=== PATIENT | male | born 1950 | race Caucasian/White ===

== ENCOUNTER 2018-07-09 10:44 | Inpatient (IN) | payer MEDICARE, OTHER ==
[2018-07-09] MEDS ORDERED: NS 0.9% 1000 ML** 1,000 ML IV ONE ×3 (11:11→18:07)
--- NOTE | 2018-07-09 11:11 | ED ---
Substance Abuse/Use - HPI Summary HPI Summary: A 67 y/o M presents to ED with ETOH intoxication. He last drank this AM and drank "a lot." He drinks daily. Associated sx: n/v, CARMONA, fever in ED: 101.2 F. Pt also has an erythematous area with swelling to his L elbow onset yesterday. PMHx: COPD, DM. Denies HTN. - History Of Current Complaint Stated Complaint: WANTS REHAB PER FRIEND Time Seen by Provider: 07/09/18 11:07 Hx Obtained From: Patient Ingestion History: Type/Name Of Drug - ETOH Overdose Characteristics: Oral Timing Of Abuse: Daily Severity Initially: Mild Severity Currently: Mild Associated Signs And Symptoms: Nausea, Vomiting, Other: - pos: CARMONA, L elbow erythema and swelling, fever - Allergies/Home Medications Allergies/Adverse Reactions: Allergies Allergy/AdvReac Type Severity Reaction Status Date / Time Penicillins Allergy Rash Verified 07/09/18 11:22 Home Medications: Home Medications Metoprolol Succinate XL TAB* [Toprol XL TAB*] 50 mg PO BID 07/09/18 [History Confirmed 07/09/18] PMH/Surg Hx/FS Hx/Imm Hx Previously Healthy: No Endocrine/Hematology History: Reports: Hx Diabetes Cardiovascular History: Denies: Hx Hypertension Respiratory History: Reports: Hx Chronic Obstructive Pulmonary Disease (COPD) - Social History Occupation: Unemployed Lives: Dormitory/Roommates Alcohol Use: Daily - heavy Review of Systems Positive: Fever - in ED: 101.2 F, Other - pos: ETOH intoxication Positive: Vomiting, Nausea Skin: Other - pos: erythema and swelling to L elbow Positive: Headache All Other Systems Reviewed And Are Negative: Yes Physical Exam - Summary Physical Exam Summary: VITAL SIGNS: Reviewed. GENERAL: Patient is a well-developed and nourished MALE who is lying comfortable in the stretcher. Patient is not in any acute respiratory distress. HEAD AND FACE: No signs of trauma. No ecchymosis, hematomas or skull depressions. No sinus tenderness. EYES: PERRLA, EOMI x 2, No injected conjunctiva, no nystagmus. EARS: Hearing grossly intact. Ear canals and tympanic membranes are within normal limits. MOUTH: Dry mouth NECK: Supple, trachea is midline, no adenopathy, no JVD, no carotid bruit, no c- spine tenderness, neck with full ROM. CHEST: Symmetric, no tenderness at palpation LUNGS: Diffuse wheezing. CVS: Regular rate and rhythm, S1 and S2 present, no murmurs or gallops appreciated. ABDOMEN: Soft, non-tender. No signs of distention. No rebound, no guarding, and no masses palpated. Bowel sounds are normal. EXTREMITIES: FROM in all major joints, no edema, no cyanosis or clubbing EXCEPT there is L elbow swelling with mild erythema. NEURO: Alert and oriented x 3. No acute neurological deficits. Speech is normal and follows commands. SKIN: Dry and warm Triage Information Reviewed: Yes Vital Signs Reviewed: Yes Diagnostics - Laboratory Result Diagrams: 07/09/18 11:27 07/09/18 17:15 Lab Statement: Any lab studies that have been ordered have been reviewed, and results considered in the medical decision making process. - Radiology CXR Radiology Interpretation Completed By: Radiologist Summary of Radiographic Findings: IMPRESSION: HYPERINFLATION, CONSISTENT WITH COPD. NO ACTIVE CARDIOPULMONARY DISEASE. ED provider has reviewed this report. - EKG 11:17 Cardiac Rate: Tachycardia - 129 bpm EKG Rhythm: Sinus Tachycardia EKG Comparison: Other - No prior EKG available. Summary of EKG Findings: No ST elevation. Re-Evaluation - Re-Evaluation 1 Re-Evaluation Time: 13:52 Change: Unchanged Comment: Performing bedside ultrasound. I&D at L elbow, there was a small amount of purulent discharge, mostly induration of the skin. Course/Dx - Course Assessment/Plan: This patient is a 67-year-old male who presents to the emergency room with a chief complaint of having an alcohol intoxication of requesting detox. The patient is an alcoholic and drinks every day. Physical exam reveals that the patient has productive wheezing and decreased breath sounds. The patient has history of COPD. The ED course the patient was given IV fluids, the banana bag, and DuoNeb and Solu-Medrol for COPD exacerbation. Blood test result shows a dialysis of 24.2, hemoglobin 16.9 and hematocrit was 51 and platelets Twenter 43. ABG shows a pH of 7.46, PCO2 of 32, PO2 is 70, O2 sat is 98.3. CMP shows a sodium 129, chloride 94, anion gap is 13, glucose of 219, lactic acid is 2.6, troponin 0.47, and CRP of 49.89. In the ED course the patient was given aspirin since the troponin is elevated, I also added Rocephin and azithromycin since I believe the patient has an early pneumonia as well as the COPD exacerbation. I discuss my physical exam, findings and test results with Dr. Patel from the hospitalist services and he agrees to admit patient to his services. Patient is hemodynamically stable alert and oriented x 3. - Diagnoses Provider Diagnoses: Elevated troponin, COPD exacerbation, Non-STEMI (non-ST elevated myocardial infarction) - Physician Notifications Discussed Care Of Patient With: Ingris Wei - hospitalist Time Discussed With Above Provider: 12:58 Instructed by Provider To: Admit As Inpatient - Critical Care Time Critical Care Time: 75-104 min Discharge - Sign-Out/Discharge Documenting (check all that apply): Patient Departure - ADMIT Patient Received Moderate/Deep Sedation with Procedure: No - Discharge Plan Condition: Stable Disposition: ADMITTED TO [facility] - Billing Disposition and Condition Condition: STABLE Disposition: Admitted to [facility] - Attestation Statements Document Initiated by Scribe: Yes Documenting Scribe: Dav Tran Provider For Whom Scribe is Documenting (Include Credential): Dr. Red Gustafson MD Scribe Attestation: I, Dav Tran, scribed for Dr. Red Gustafson MD on 07/09/18 at 1836. Scribe Documentation Reviewed: Yes Provider Attestation: The documentation as recorded by the Dav gilbert accurately reflects the service I personally performed and the decisions made by me, Dr. Red Gustafson MD Status of Scribe Document: Viewed Consult Consult: [id number]: Consult with kavita Ramesh Saw pt in ED, recommends ABX and admission to hospitalist.
[2018-07-09] MEDS ORDERED: Thiamine IV* 100 MG, Folic Acid IV* 1 MG, Multiple Vitamin IV ADULT* 10 ML in NS 0.9% 1... IV ONE (11:12)
[2018-07-09] MEDS ORDERED: methylPREDNISolone 125 MG* 2 ML VIAL IV ONE (11:13)
[2018-07-09] MEDS ORDERED: Albuterol/Ipratropium NEB.SOL* Albuterol 2.5 MG/Ipratropium 0.5 MG 3 ML INH ONE (11:13)
[2018-07-09 11:51] LABS: Hematocrit 51 % (42-52); Hemoglobin 16.9 g/dL (14.0-18.0); Mean Corpuscular HGB Conc 34 g/dL (31-36); Mean Corpuscular Hemoglobin 32 pg (27-31); Mean Corpuscular Volume 94 fL (80-94); Mean Platelet Volume 7.2 fL (7.4-10.4); Platelet Count 243 10^3/uL (150-450); Red Blood Count 5.38 10^6 /uL (4.18-5.48); Red Cell Distribution Width 16 % (10.5-15); White Blood Count 24.2 10^3/uL (3.5-10.8)
[2018-07-09 12:01] LABS: Activated Partial Thrombo Time 32.9 seconds (26.0-36.3); INR 1.17 (0.82-1.09)
[2018-07-09 12:15] LABS: ALT 29 U/L (7-52); AST 28 U/L (13-39); Albumin 4.2 g/dL (3.2-5.2); Alkaline Phosphatase 100 U/L (34-104); Anion Gap 13 mmol/L (2-11); BUN/Creatinine Ratio 7.7 (8-20); Blood Urea Nitrogen 6 mg/dL (6-24); C Reactive Protein 49.89 mg/L (<8.01); CO2 Carbon Dioxide 22 mmol/L (22-32); Calcium 8.9 mg/dL (8.6-10.3); Chloride 94 mmol/L (101-111); Creatine Kinase 118 U/L (10-223); EGFR African American 120.9 (>60); EGFR Non-African American 99.9 (>60); Glucose 219 mg/dL (70-100); Potassium 3.8 mmol/L (3.5-5.0); Sodium 129 mmol/L (135-145)
[2018-07-09 12:17] LABS: ABS Neutrophils 21.1 10^3/ul (1.5-7.7)
[2018-07-09 12:19] LABS: CKMB ng/mL 4.8 ng/mL (0.6-6.3)
[2018-07-09 12:20] LABS: Troponin I 0.47 ng/mL (<0.04)
[2018-07-09] MEDS ORDERED: Aspirin 81 mg CHEW TAB* 81 MG TAB.CHEW PO ONE (12:22)
[2018-07-09] MEDS ORDERED: cefTRIAXone(*) 1 GM in NS 0.9% 50 ML* 50 ML IVPB ONE (12:22)
[2018-07-09] MEDS ORDERED: Acetaminophen TAB* 325 MG PO ONE (12:37)
[2018-07-09] MEDS ORDERED: Azithromycin 500 mg/250 ml NS 500 MG/250 ML BAG IVPB ONE (12:58)
[2018-07-09 13:05] LABS: Albumin/Globulin Ratio 1.6 (1-3); Globulin 2.6 g/dL (2-4); Total Protein 6.8 g/dL (6.4-8.9)
[2018-07-09 13:36] LABS: Urine Appearance Clear; Urine Bacteria Absent (Absent); Urine Bilirubin Negative (Negative); Urine Blood 1+ (Negative); Urine Color Yellow; Urine Glucose 2+(150 mg/dL) (Negative); Urine Ketones Trace (Negative); Urine Nitrite Negative (Negative); Urine Protein Negative (Negative); Urine Red Blood Cell Trace(0-2/hpf) (Absent); Urine Specific Gravity 1.005 (1.010-1.030); Urine Squamous Epithelial Cell Present (Absent); Urine Urobilinogen Negative (Negative); Urine White Blood Cell Absent (Absent)
[2018-07-09] MEDS ORDERED: Al Hydrox/Mg Hydrox/Simet LIQ* 30 ML UDC PO PRN (13:50)
[2018-07-09] MEDS ORDERED: Lorazepam PYXIS KEY PRN ×2 (14:02→15:07)
[2018-07-09] MEDS ORDERED: KCL 20 MEQ/100 ML IVPREMIX* 20 MEQ/100 ML BAG IV ONE (14:25)
[2018-07-09] MEDS ORDERED: Albuterol/Ipratropium NEB.SOL* Albuterol 2.5 MG/Ipratropium 0.5 MG 3 ML INH PRN (14:33)
[2018-07-09] MEDS ORDERED: LORazepam INJ* 2 MG/ML 1 ML VIAL IV PUSH ONE (15:07)
[2018-07-09] MEDS: Ondansetron INJ* 2 MG/ML VIAL IV PRN ×2 (15:13→22:12)
[2018-07-09] MEDS: Nicotine PATCH 21 MG/24 HR* PATCH TRANSDERM SCH (15:44)
[2018-07-09] MEDS: Folic Acid TAB* 1 MG PO SCH (15:45)
[2018-07-09] MEDS: Gabapentin CAP(*) 300 MG PO SCH ×2 (15:45→20:26)
[2018-07-09] MEDS: Thiamine TAB* 100 MG TAB PO SCH (15:45)
[2018-07-09] MEDS: Enoxaparin(*) 40 MG/0.4 ML SYR SUBCUT SCH (15:47)
[2018-07-09] MEDS ORDERED: Vancomycin per Pharmacy* NOTE FOLLOW UP SCH (16:00)
[2018-07-09] MEDS ORDERED: Vancomycin(*) 2,000 MG in NS 0.9% 500 ML* 500 ML IVPB ONE (16:00)
[2018-07-09] MEDS ORDERED: Vancomycin(*) 1,500 MG in NS 0.9% 250 ML* 250 ML IVPB ONE (16:30)
[2018-07-09 17:41] LABS: Anion Gap 9 mmol/L (2-11); BUN/Creatinine Ratio 6.8 (8-20); Blood Urea Nitrogen 6 mg/dL (6-24); CO2 Carbon Dioxide 21 mmol/L (22-32); Calcium 7.9 mg/dL (8.6-10.3); Chloride 104 mmol/L (101-111); EGFR African American 105.2 (>60); EGFR Non-African American 86.9 (>60); Glucose 278 mg/dL (70-100); Potassium 4.9 mmol/L (3.5-5.0); Sodium 134 mmol/L (135-145)
[2018-07-09 17:48] LABS: Troponin I 0.38 ng/mL (<0.04)
[2018-07-09] MEDS: Multivitamins/Minerals TAB PO SCH (18:02)
[2018-07-09] MEDS: Morphine 4 MG/ML VIAL (1 ml) 4 MG/ML VIAL IV PRN (19:30)
[2018-07-09] MEDS: ceFAZolin 1 GM ADVAN(*) 1 GM in NS 0.9% 50 ML* 50 ML IVPB SCH (19:32)
--- NOTE | 2018-07-09 19:36 | HP ---
HISTORY AND PHYSICAL: DATE OF ADMISSION: HEALTHCARE PROXY: Jaime Cobb, friend, . CODE STATUS: Full. CHIEF COMPLAINT: "I want to quit drinking." HISTORY OF PRESENT ILLNESS: Mr. Russ is a 67-year-old man with alcohol use disorder, COPD with active tobacco use, and anxiety, who is presenting from home with request for help with alcohol cessation. He reports that he is a binge drinker and has been drinking alcohol on and off throughout his entire adult life. He reports that he went through breakup approximately 1 month ago and since then has been drinking 20 to 30 beers per day. He states that none of his friends drink and they are very supportive in tying to help him quit, and he has just been feeling worse from excessive alcohol use the last few days , so he decided to come to hospital for help with alcohol cessation. When asked specifically what feels worse to him, he reports that his left elbow has been aching. He denies fall, trauma, or recent wounds over skin on elbow. He also states he has been experiencing a cough for a few months. The cough is not productive nor progressive. He denied fevers, chills, night sweats, but does have a diagnosis of COPD and continues to smoke and does not use inhalers. He also reports recent nausea and nonbloody, nonbilious vomiting. Last episode of vomiting was before presenting to the hospital. He also denies chest pain, shortness of breath, abdominal pain, constipation, or diarrhea. In the emergency room, he was noted to be febrile and tachycardic with x-ray showing COPD without concern for infection. He was given ceftriaxone, azithromycin, 1 L of fluids, IV steroids, IV thiamine, and aspirin, and asked to be admitted to Medicine for concern for COPD exacerbation and pneumonia. PAST MEDICAL HISTORY: 1. Alcohol use disorder, multiple inpatient rehab stays. No history of alcohol withdrawal seizures or intubation. No history of liver disease. 2. DM2 not on medications 3. Anxiety. 4. COPD. HOME MEDICATIONS: Metoprolol succinate 50 mg twice a day. ALLERGIES: PENICILLIN caused rash. FAMILY HISTORY: Both parents from unknown cancers. SOCIAL HISTORY: Lives with his friend, Jaime and Jaime' Deborah. Retired from [employer]. Active tobacco use starting at age 20, occasionally up to 2 packs per day. Chronic alcohol abuse. Denies other drugs. PHYSICAL EXAMINATION GENERAL: Appears stated age, in no acute distress. Alert, friendly, conversant. VITAL SIGNS: Temperature 101.2, heart rate 117, blood pressure 131/79, respirations 21, oxygen saturation 95% on room air. HEENT: No evidence of trauma. Moist mucous membranes. NECK: Supple. No JVD. LUNGS: Mild diffuse expiratory wheeze. Good air movement. No crackles. HEART: Tachycardic, regular rhythm. No murmurs, gallops, or rubs. ABDOMEN: Soft, nontender, positive for distention. No organomegaly. No fluid wave. EXTREMITIES: Mild hand tremor. No asterixis. Left elbow with moderate ? effusion with overlying erythema circumferentially, possible abscess with purulence over olecranon. Lower extremities without edema, wwp. NEUROLOGIC: Cranial nerves II through XII intact. SKIN: No diaphoresis. Not jaundiced. DIAGNOSTIC STUDIES/LAB DATA: Labs reviewed and significant for leukocytosis to 24. Neutrophil percentage not reported. Hemoglobin 17, platelets 243. INR 1.17. pH 7.46, PCO2 32. Sodium 129, creatinine 0.78, lactic acid 2.6. Troponin 0.47. CRP 50. Chest x-ray with hyperinflation consistent with COPD. No active cardiopulmonary disease. EKG with sinus tachycardia, rate 130 with late transition for R-wave progression and possible inferior Qs in II, III, aVF, although poor baseline. ASSESSMENT AND PLAN: 67-year-old man with history of alcohol use disorder, active tobacco use complicated by chronic obstructive pulmonary disease, anxiety, who is presenting with desire to stop drinking and with subacute cough and left elbow pain. The patient found with tachycardia, fever, leukocytosis, and left elbow concerning for septic joint. 1. Cellulitis with concern for septic joint of left elbow. Ortho has been consulted, left elbow x-ray is ordered. Plan to obtain cultures and start the patient on vancomycin. Will give sepsis fluids, pain control with morphine as needed for [id number] pain and Tylenol for mild pain. May need joint washout from Orthopedic Surgery. 2. Alcohol withdrawal. WAM protocol initiated with standing gabapentin, which could also be used for alcohol use disorder on top of alcohol withdrawal treatment. Will also start on thiamine and folate with ondansetron as needed for nausea. Will start on multivitamin and replete electrolytes as needed. We will order ultrasound of liver and to look for ascites. 3. Chronic obstructive pulmonary disease with possible exacerbation. We will continue nebulizers as needed. The patient is not currently requiring oxygen therapy and he does not take a daily chronic obstructive pulmonary disease inhaler at home. 4. Active tobacco. We will order nicotine patch and discuss cessation techniques. 5. DVT prophylaxis. The patient is initiated on Lovenox subcu. 6. Code status. Full. TIME SPENT: Approximately 60 minutes was spent on admission of this patient, more than half of which was spent at bedside for the interview and exam. [id number]/[facility]PS #: [id number] DOROTHY
[2018-07-09] MEDS: Nicotine Patch Removal NOTE FOLLOW UP SCH (20:24)
--- NOTE | 2018-07-09 20:49 | CONS ---
CONSULTATION NOTE: DATE OF CONSULT: 07/09/18 REASON FOR CONSULT: Left elbow infection. HISTORY OF PRESENT ILLNESS: The patient is a 67-year-old man, right-hand dominant, retired, who is a n alcoholic, who presented to the emergency room intoxicated with a complaint of some left elbow pain and swelling. The patient was seen by the hospitalist service and there were plans for admission to the hospitalist service. Emergency room staff noted some erythema, pain and tenderness about the left elbow. They were concerned about infection. Dr. Gustafson thought that there might be some fluid about the olecranon bursa. Therefore, he placed a short stab incision through the skin, longitudinal about the olecrano n bursa. No clear fluid was released. The patient noted that there was some blood, but no pus. The patient describes fevers at home and an elevated temperature here in the emergency room. The patient states that he fell yesterday while drinking and thinks that he hit his left elbow then. The patient acknowledges that he drinks "a lot." He drinks daily according to the emergency room sta ff note. PAST MEDICAL HISTORY: Diabetes, alcoholism, chronic obstructive pulmonary disease. HOME MEDICATIONS: Metoprolol. ALLERGIES: PENICILLIN (rash). FAMILY HISTORY: Noncontributory. SOCIAL HISTORY: The patient is a daily alcohol drinker. Lives with 2 roommates, a couple. Unemployed or retired. REVIEW OF SYSTEMS: The patient has had fevers at home. The patient described occasional headaches. He described some shortness of breath and he describes having received a breathing treatment in the emergency room for that. No chest pain or heart palpitations. The patient denied to me nausea or vo miting, but acknowledged recent nausea and vomiting to the emergency room staff presumably secondary to his drinking. No numbness or tingling. The patient does have some left elbow pain. PHYSICAL EXAM: Vitals at 5:14 p.m. today were heart rate 116 beats per minute, blood pressure 117/59 , respiratory rate of 27. Three minutes later, the respiratory rate was only 16. The patient's last body temperature obtained at 4:15 p.m. was 99.0 degrees Fahrenheit. His temperature at 10:48 this m orning was 101.2 degrees Fahrenheit temporal; that is his T-max therefore in the hospital. No acute distress. Nontoxic appearing. The patient seemed poorly kempt. His clothing and hygiene s eem disheveled. Well coordinated bilateral upper and lower extremities. The patient is lying supine on an emergency room stretcher. Per emergency room staff, diffuse wheezes in the lungs with auscultation. Heart: Regular rate and rh ythm. No murmurs. Left upper extremity exam shows some soft tissue swelling and erythema about the posterior aspect of the elbow and proximal forearm. While there is clear soft tissue swelling, there is no clear area of fluctuance about the olecranon bursa or elsewhere. The only opening in the skin is a site of prior incision over the olecranon bursa performed by emergency room staff. Neurovascularly intact distally . No pain with passive range of motion of the elbow whatsoever. Passive range of motion is approxim ately 0 to 130 degrees of flexion. I tried to express fluid from the site of the prior incision and blood was expressed. No pus. DIAGNOSTIC STUDIES/LAB DATA: White blood cell count 24.2 with a neutrophil percentage of 87.0%. Lac tic acid 2.6 and then 2.3 today. Troponin 0.47 and then 0.38. CRP 49.89. Imaging: Four x-ray views of the left elbow obtained in the hospital today show no fracture. No sig nificant degenerative changes. ASSESSMENT: 1. Left elbow and proximal forearm cellulitis. 2. Left elbow traumatic olecranon bursitis with infection, but no abscess or fluid collection. PLAN: 1. No elbow infection of that joint. That is a clear based on no pain with passive range of motion of the elbow. 2. No pus or fluid collection about the olecranon bursa. 3. This is an infection of the skin, subcutaneous tissue and perhaps the olecranon bursa, cellulitis . 4. 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 5. We first marked the area of swelling and erythema, its borders, with a blue skin marker and dated that to determine change in physical exam over time. 6. Daily wound checks. 7. We placed a bulky sterile dressing over the patient's elbow to limit elbow flexion and to keep th e area clean. 8. Recommend IV antibiotics. The patient will be admitted for his intoxication and any other medica l problems and therefore should be placed on IV antibiotics until the cellulitis noticeably improves at which point he can be transitioned to oral antibiotics. That could be as early as tomorrow, 07/10. 9. Admit to hospitalist for management of multiple medical problems. [id number]/[facility] #: [id number]
[2018-07-10] MEDS ORDERED: Vancomycin(*) 1,000 MG in NS 0.9% 250 ML* 250 ML IVPB SCH (01:00)
[2018-07-10] MEDS: ceFAZolin 1 GM ADVAN(*) 1 GM in NS 0.9% 50 ML* 50 ML IVPB SCH ×3 (03:07→17:30)
[2018-07-10 06:40] LABS: BUN/Creatinine Ratio 11.8 (8-20); Calcium 8.3 mg/dL (8.6-10.3); EGFR African American 109.5 (>60); EGFR Non-African American 90.5 (>60); Magnesium 1.9 mg/dL (1.9-2.7); Potassium 4.3 mmol/L (3.5-5.0)
[2018-07-10 06:44] LABS: Hematocrit 44 % (42-52); Hemoglobin 14.6 g/dL (14.0-18.0); Mean Corpuscular HGB Conc 33 g/dL (31-36); Mean Corpuscular Hemoglobin 31 pg (27-31); Mean Corpuscular Volume 95 fL (80-94); Mean Platelet Volume 7.7 fL (7.4-10.4); Platelet Count 195 10^3/uL (150-450); Red Blood Count 4.64 10^6 /uL (4.18-5.48); Red Cell Distribution Width 16 % (10.5-15); White Blood Count 25.1 10^3/uL (3.5-10.8)
[2018-07-10 07:06] LABS: ABS Lymphocytes 0.4 10^3/ul (1.0-4.8); ABS Monocytes 0.6 10^3/ul (0-0.8); ABS Neutrophils 24.1 10^3/ul (1.5-7.7); Lymphocyte % 1.4 %
[2018-07-10] MEDS: Folic Acid TAB* 1 MG PO SCH (07:26)
[2018-07-10] MEDS: Gabapentin CAP(*) 300 MG PO SCH ×3 (07:29→19:55)
[2018-07-10] MEDS: Thiamine TAB* 100 MG TAB PO SCH (07:29)
[2018-07-10] MEDS: Morphine 4 MG/ML VIAL (1 ml) 4 MG/ML VIAL IV PRN (07:30)
[2018-07-10] MEDS: Nicotine PATCH 21 MG/24 HR* PATCH TRANSDERM SCH (07:31)
[2018-07-10 08:25] LABS: Troponin I 0.21 ng/mL (<0.04)
[2018-07-10] MEDS ORDERED: Senna TAB PO PRN (08:28)
[2018-07-10] MEDS ORDERED: Polyethylene Glycol 3350* 17 GM PACKET PO PRN (08:28)
[2018-07-10] MEDS: Multivitamins/Minerals TAB PO SCH (08:55)
[2018-07-10] MEDS: Sertraline* 25 MG TAB PO SCH (08:55)
[2018-07-10] MEDS ORDERED: Pneumococcal *Vac Polyvalent 0.5 ML VIAL IM ONE (09:00)
--- NOTE | 2018-07-10 10:31 | PN ---
Subjective Date of Service: 07/10/18 Interval History: Pt reports sleeping well overnight. States he still feels quite a bit "lousy" but much better than yesterday. Still with pain on flexion and extension of L elbow. No longer with fevers/chills. Reports continued cough, chronic and unchanged for months. Had been smoking 2 PPD up until admission and reports h/o COPD for which he does not take inhalers at home. Placed on O2 but not given neb treatment overnight? Occasionally tearful on interview when talking about patient's mood. He reports a history of metoprolol use for "anxiety" and states he just feels really badly about his life, which is why he drinks. He very afraid he will from his drinking, but denies SI. He is amenable to starting an SSRI and side effects were discussed. Tolerating gabapentin well and did not require ativan overnight. With mild hand tremor on exam today. Wound culture growing MSSA. Objective Active Medications: Acetaminophen (Tylenol Tab*) 650 mg PO Q6H PRN PRN Reason: Fever or Mild Pain Al Hydrox/Mg Hydrox/Simethicone (Maalox Plus*) 30 ml PO Q6H PRN PRN Reason: INDIGESTION Albuterol/Ipratropium (Duoneb (Albuterol 2.5 Mg/Ipratropium 0.5 Mg)) 1 neb INH [id number] AWAKE [facility] Enoxaparin Sodium (Lovenox(*)) 40 mg SUBCUT Q24H [facility] Last Admin: 07/09/18 15:47 Dose: 40 mg Folic Acid (Folvite Tab*) 1 mg PO DAILY [facility] Last Admin: 07/10/18 07:26 Dose: 1 mg Gabapentin (Neurontin Cap(*)) 300 mg PO TID [facility] Last Admin: 07/10/18 07:29 Dose: 300 mg Cefazolin Sodium 1 gm/ Sodium (Chloride) 50 mls @ 200 mls/hr IVPB Q8H [facility] Last Admin: 07/10/18 03:07 Dose: 200 mls/hr Lorazepam (Ativan Inj*) 0 - 3 mg IV PUSH .PER WAM PROTOCOL NATHALIA; Protocol Miscellaneous (Ativan Pyxis Montero) 1 ea N/A .PYXIS MONTERO PRN PRN Reason: PER PROTOCOL Morphine Sulfate (Morphine 4 Mg/Ml Vial (1 Ml)) 2 mg IV Q6H PRN PRN Reason: Moderate to Severe pain Last Admin: 07/10/18 07:30 Dose: 2 mg Multivitamins/Minerals (Theragran/Minerals Tab*) 1 tab PO DAILY [facility] Last Admin: 07/10/18 08:55 Dose: Not Given Nicotine (Nicotine Patch 21 Mg/24 Hr*) 1 patch TRANSDERM DAILY [facility] Last Admin: 07/10/18 07:31 Dose: 1 patch Ondansetron HCl (Zofran Inj*) 4 mg IV Q6H PRN PRN Reason: NAUSEA Last Admin: 07/09/18 22:12 Dose: 4 mg Pharmacy Profile Note (Nicotine Patch Removal Note*) 1 note FOLLOW UP 2100 [facility] Last Admin: 07/09/18 20:24 Dose: Not Given Polyethylene Glycol/Electrolytes (Miralax*) 17 gm PO DAILY PRN PRN Reason: CONSTIPATION Senna (Senokot Tab*) 1 tab PO BEDTIME PRN PRN Reason: if no BM during day Sertraline HCl (Zoloft*) 25 mg PO DAILY [facility] Last Admin: 07/10/18 08:55 Dose: 25 mg Thiamine HCl (Vitamin B-1 Tab*) 100 mg PO DAILY [facility] Last Admin: 07/10/18 07:29 Dose: 100 mg Vital Signs - 8 hr 07/10/18 07/10/18 07/10/18 02:46 03:50 06:04 Temperature 98.7 F 98.1 F 98.5 F Pulse Rate 107 112 102 Respiratory 20 24 20 Rate Blood Pressure 132/75 129/71 128/75 (mmHg) O2 Sat by Pulse 91 87 90 Oximetry 07/10/18 07/10/18 07/10/18 07:05 07:29 07:30 Temperature 97.6 F Pulse Rate 106 Respiratory 20 22 22 Rate Blood Pressure 130/71 (mmHg) O2 Sat by Pulse 95 Oximetry 07/10/18 07/10/18 07/10/18 08:00 08:55 09:00 Temperature 97.9 F Pulse Rate 111 Respiratory 20 18 20 Rate Blood Pressure 128/67 (mmHg) O2 Sat by Pulse 95 Oximetry Oxygen Devices in Use Now: Nasal Cannula Appearance: well appearing, friendly and alert Ears/Nose/Mouth/Throat: - - dry mm Respiratory: - - mild expiratory wheeze at bases Cardiovascular: RRR Abdominal: - - protuberant but no fluid wave, nontender, soft Extremities: No Edema, - - mild hand tremor Skin: - - L elbow wrapped in bandage Neurological: Alert and Oriented x 3 Result Diagrams: 07/10/18 06:01 07/10/18 06:01 Microbiology and Other Data: Microbiology 07/09/18 13:00 Legionella Urinary Antigen - Final Urine Negative Legionella Antigen Streptococcus pneumoniae Ag Screen - Final Negative S. pneumo Antigen 07/09/18 14:05 Skin and Soft Tissue MRSA/MSSA (PCR - Final Elbow Left Mrsa Negative S.aureus Positive Gram Stain - Final Assess/Plan/Problems-Billing Assessment: 67W with alcohol use disorder, active tobacco use complicated by COPD, anxiety, who is presenting with desire to stop drinking and with chronic cough and left elbow pain. The patient was found with tachycardia, fever, leukocytosis, and left elbow concerning for cellulitis vs septic joint. - Patient Problems (1) Alcohol abuse Comment: continue WAM protocol continue gabapentin continue thiamine, folate (2) Cellulitis Comment: Initially concerned for septic joint of L elbow given location and swelling of joint. Cultures with MSSA. - eval by ortho and thought to be more superficial - cont IV cefazolin - f/u cultures (3) Anxiety and depression Comment: start on sertraline 25mg today - discussed side effects and therapeutic expectations, recommended psychotherapy (4) COPD (chronic obstructive pulmonary disease) Comment: Does not seem to have an active exacerbation now. - nebs - s/p methylprednisolone IV in ER - pt movitivated to quit smoking - will monitor for signs of respiratory infection - SaO2 goal 88-92%, wean O2 as tolerated, doesn't seem to need it now
[2018-07-10] MEDS ORDERED: Metoprolol Succinate XL TAB* 50 MG PO ONE (10:35)
[2018-07-10] MEDS: Albuterol/Ipratropium NEB.SOL* Albuterol 2.5 MG/Ipratropium 0.5 MG 3 ML INH SCH ×3 (11:21→19:19)
[2018-07-10] MEDS: Enoxaparin(*) 40 MG/0.4 ML SYR SUBCUT SCH (12:24)
[2018-07-10] MEDS ORDERED: Magnesium Sulfate 1 GM IV* 1 GM/100 ML BAG IV ONE (12:30)
[2018-07-10 13:31] LABS: HDL Cholesterol 37.8 mg/dL
[2018-07-10] MEDS ORDERED: metFORMIN* 500 MG TAB PO SCH (14:00)
--- NOTE | 2018-07-10 14:54 | PN ---
Progress Note - Progress Note Date of Service: 07/10/18 SOAP: Subjective: Ortho was consulted yesterday afternoon. I just read Hospitalist note. To clarify, to my knowledge, there was never any concern about elbow joint infection by Ortho or ED services. Perhaps by Hospitalist. Patient feels better overall today, but thinks that the LUE is worse. Objective: NAD, non-toxic appearing LUE: - Skin erythema, diffuse upper arm to wrist; outside the margins that I malu on 07/09/18, which were much more limited. Some minimal TTP, but not significant. - Decreased soft tissue swelling about the posterior elbow and proximal forearm , where he had focal swelling previously about the olecranon bursa and more distal. No fluid collection palpable. - Increased soft tissue swelling about the distal forearm and wrist - Tender axilla likely representing lymphadenopathy - Elbow PROM 0-140. No pain whatsoever until terminal flexion reached - No pain PROM wrist and fingers. - Patient is using LUE without pain. Pushing himself up, over in bed by weight bearing Microbiology 07/09/18 14:05 Elbow Left Skin and Soft Tissue MRSA/MSSA (PCR - Final 07/09/18 14:05 Elbow Left Gram Stain - Final Mrsa Negative S.aureus Positive 07/09/18 13:00 Urine Legionella Urinary Antigen - Final 07/09/18 13:00 Urine Streptococcus pneumoniae Ag Screen - Final Negative Legionella Antigen Negative S. pneumo Antigen 07/09/18 14:05 Elbow Left Wound Culture - Preliminary Strep Pyogenes (Grp A) Selected Entries 07/09/18 07/09/18 07/09/18 16:15 19:55 21:53 Temperature 99.0 F 98.7 F 98.4 F Pulse Rate Respiratory Rate Blood Pressure (mmHg) O2 Sat by Pulse Oximetry 07/10/18 07/10/18 07/10/18 02:46 03:50 06:04 Temperature 98.7 F 98.1 F 98.5 F Pulse Rate Respiratory Rate Blood Pressure (mmHg) O2 Sat by Pulse Oximetry 07/10/18 07/10/18 07/10/18 07:05 09:00 10:57 Temperature 97.6 F 97.9 F 97.3 F Pulse Rate Respiratory Rate Blood Pressure (mmHg) O2 Sat by Pulse Oximetry 07/10/18 13:01 Temperature 98.0 F Pulse Rate 100 Respiratory 22 Rate Blood Pressure 118/59 (mmHg) O2 Sat by Pulse 95 Oximetry Laboratory Tests 07/09/18 07/10/18 11:27 06:01 WBC 24.2 H 25.1 H Neut % (Auto) 96.2 Assessment: Left olecranon bursa traumatic bursitis, cellulitis left upper extremity Mixed improvement (afebrile, decreased swelling elbow) and worsening (increased area erythema) of physical exam Plan: 1. I suspect that the bulky dressing about the elbow redistributed the patient' s soft tissue swelling from the elbow and proximal forearm to the wrist and distal forearm. The spreading erythema is notable, but given the patient's pale skin and in and of itself, is not particularly concerning. 2. Continue IV abx to cover MSSA and strep pyogenes. Patient is on Ancef. Perhaps antibiotic coverage is insufficient. I will discuss with Hospitalist broader coverage until improvement, perhaps Vancomycin. 3. No concern whatsover for elbow joint infection. No concern whatsoever for drainable olecranon bursa fluid. No indication for advanced imaging, now although if the patient doesn't improve by tomorrow, I might possibly consider an MRI to look for a non-metallic foreign body about the elbow or some other very unusual cause of lack of improvement of cellulitis 4. DSD with daily LUE exam
[2018-07-10] MEDS ORDERED: Vancomycin Trough Check NOTE FOLLOW UP ONE (16:30)
[2018-07-10] MEDS ORDERED: Dextrose 50% Syringe 50 ML* 25 GM/50 ML SYRINGE IV PUSH PRN (18:30)
[2018-07-10] MEDS ORDERED: ceFAZolin 1 GM* X ONE DOSE (AddVan) IVPB ×2 (19:00)
[2018-07-10] MEDS: Clindamycin 600 MG/D5W BAG(*) 600 MG/50 ML BAG IV SCH (19:08)
[2018-07-10] MEDS: Acetaminophen TAB* 325 MG PO PRN (19:54)
[2018-07-10] MEDS: Insulin LISPRO* 1 UNITS UNIT SUBCUT SCH (20:00)
[2018-07-10] MEDS: Nicotine Patch Removal NOTE FOLLOW UP SCH (20:05)
[2018-07-11] MEDS: Albuterol/Ipratropium NEB.SOL* Albuterol 2.5 MG/Ipratropium 0.5 MG 3 ML INH SCH ×3 (01:47→07:37)
[2018-07-11] MEDS: ceFAZolin* 2 GM* Q8H (Duplex) IVPB SCH ×3 (01:53→18:01)
[2018-07-11] MEDS: Clindamycin 600 MG/D5W BAG(*) 600 MG/50 ML BAG IV SCH ×3 (02:28→18:01)
[2018-07-11] MEDS: Acetaminophen TAB* 325 MG PO PRN ×3 (02:30→20:51)
[2018-07-11 06:30] LABS: Hematocrit 43 % (42-52); Hemoglobin 14.4 g/dL (14.0-18.0); Mean Corpuscular HGB Conc 33 g/dL (31-36); Mean Corpuscular Hemoglobin 32 pg (27-31); Mean Corpuscular Volume 96 fL (80-94); Mean Platelet Volume 7.2 fL (7.4-10.4); Platelet Count 174 10^3/uL (150-450); Red Blood Count 4.53 10^6 /uL (4.18-5.48); Red Cell Distribution Width 16 % (10.5-15)
[2018-07-11 06:37] LABS: ABS Basophils 0.1 10^3/ul (0-0.2); ABS Eosinophils 0.2 10^3/ul (0-0.6); ABS Lymphocytes 0.5 10^3/ul (1.0-4.8); ABS Monocytes 0.3 10^3/ul (0-0.8); ABS Neutrophils 17.8 10^3/ul (1.5-7.7)
[2018-07-11 06:43] LABS: BUN/Creatinine Ratio 15.4 (8-20); C Reactive Protein 242.34 mg/L (<8.01); Calcium 8.4 mg/dL (8.6-10.3); EGFR African American 120.9 (>60); EGFR Non-African American 99.9 (>60); Magnesium 2.1 mg/dL (1.9-2.7); Potassium 3.9 mmol/L (3.5-5.0)
[2018-07-11 06:54] LABS: Eosinophil % 0.9 %; Lymphocyte % 2.4 %
[2018-07-11] MEDS: Insulin LISPRO* 1 UNITS UNIT SUBCUT SCH ×4 (08:18→21:11)
[2018-07-11] MEDS: Folic Acid TAB* 1 MG PO SCH (08:19)
[2018-07-11] MEDS: Gabapentin CAP(*) 300 MG PO SCH ×3 (08:19→20:52)
[2018-07-11] MEDS: Thiamine TAB* 100 MG TAB PO SCH (08:19)
[2018-07-11] MEDS: Multivitamins/Minerals TAB PO SCH (08:20)
[2018-07-11] MEDS: Sertraline* 25 MG TAB PO SCH (08:20)
[2018-07-11] MEDS: Nicotine PATCH 21 MG/24 HR* PATCH TRANSDERM SCH (08:20)
[2018-07-11 08:35] LABS: TSH (Thyroid Stimulating Horm) 1.83 mcIU/mL (0.34-5.60)
[2018-07-11] MEDS ORDERED: LORazepam INJ* 2 MG/ML 1 ML VIAL IV PUSH ONE (09:21)
[2018-07-11] MEDS ORDERED: Lorazepam PYXIS KEY PRN (09:21)
[2018-07-11] MEDS ORDERED: Lorazepam PYXIS KEY ONE (09:49)
--- NOTE | 2018-07-11 11:25 | PN ---
Progress Note - Progress Note Date of Service: 07/11/18 SOAP: Subjective: Pt seen and assessed for left elbow cellulitis. Pt has history of heavy ETOH use and is a poor historian. Reports redness and swelling are worse today. Pain persistent. Denies f/c. Culture + for Group A Strep, added Clindamycin yesterday. Objective: Vitals: Temp Pulse Resp BP Pulse Ox 98.2 F 113 24 126/69 96 07/11/18 08:26 07/11/18 08:26 07/11/18 09:56 07/11/18 08:26 07/11/18 08:26 Gen: A&Ox3, NAD at rest laying in bed LUE: Erythema and warmth to LUE extending almost into axilla. Outside of initial margins but no new lines drawn yesterday to compare to. No pain with passive or active ROM to elbow, wrist or digits. + pitting edema to hand and wrist. Stab incision with dried blood, no purulent drainage. N/V intact Labs: Laboratory Results - last 24 hr 07/10/18 07/10/18 07/10/18 06:01 06:01 06:01 WBC RBC Hgb Hct MCV MCH MCHC RDW Plt Count MPV Neut % (Auto) Lymph % (Auto) Russell % (Auto) Eos % (Auto) Baso % (Auto) Absolute Neuts (auto) Absolute Lymphs (auto) Absolute Monos (auto) Absolute Eos (auto) Absolute Basos (auto) Absolute Nucleated RBC Nucleated RBC % Sodium 137 Potassium 4.3 Chloride 104 Carbon Dioxide 28 Anion Gap 5 BUN 10 Creatinine 0.85 Est GFR ( Amer) 109.5 Est GFR (Non-Af Amer) 90.5 BUN/Creatinine Ratio 11.8 Glucose 270 H POC Glucose (mg/dL) Hemoglobin A1c 7.4 H Lactic Acid 1.4 Calcium 8.3 L Magnesium 1.9 Troponin I 0.21 H* C-Reactive Protein Triglycerides 95 Cholesterol 131 LDL Cholesterol 74 HDL Cholesterol 37.8 TSH 07/10/18 07/11/18 07/11/18 19:58 06:17 06:17 WBC 19.0 H RBC 4.53 Hgb 14.4 Hct 43 MCV 96 H MCH 32 H MCHC 33 RDW 16 H Plt Count 174 MPV 7.2 L Neut % (Auto) 94.6 Lymph % (Auto) 2.4 Russell % (Auto) 1.8 Eos % (Auto) 0.9 Baso % (Auto) 0.3 Absolute Neuts (auto) 17.8 H Absolute Lymphs (auto) 0.5 L Absolute Monos (auto) 0.3 Absolute Eos (auto) 0.2 Absolute Basos (auto) 0.1 Absolute Nucleated RBC 0.0 Nucleated RBC % 0.0 Sodium 136 Potassium 3.9 Chloride 102 Carbon Dioxide 29 Anion Gap 5 BUN 12 Creatinine 0.78 Est GFR ( Amer) 120.9 Est GFR (Non-Af Amer) 99.9 BUN/Creatinine Ratio 15.4 Glucose 171 H POC Glucose (mg/dL) 204 H Hemoglobin A1c Lactic Acid Calcium 8.4 L Magnesium 2.1 Troponin I C-Reactive Protein 242.34 H Triglycerides Cholesterol LDL Cholesterol HDL Cholesterol TSH 1.83 07/11/18 07:40 WBC RBC Hgb Hct MCV MCH MCHC RDW Plt Count MPV Neut % (Auto) Lymph % (Auto) Russell % (Auto) Eos % (Auto) Baso % (Auto) Absolute Neuts (auto) Absolute Lymphs (auto) Absolute Monos (auto) Absolute Eos (auto) Absolute Basos (auto) Absolute Nucleated RBC Nucleated RBC % Sodium Potassium Chloride Carbon Dioxide Anion Gap BUN Creatinine Est GFR ( Amer) Est GFR (Non-Af Amer) BUN/Creatinine Ratio Glucose POC Glucose (mg/dL) 170 H Hemoglobin A1c Lactic Acid Calcium Magnesium Troponin I C-Reactive Protein Triglycerides Cholesterol LDL Cholesterol HDL Cholesterol TSH Microbiology 07/09/18 14:05 Elbow Left Skin and Soft Tissue MRSA/MSSA (PCR - Final Mrsa Negative S.aureus Positive 07/09/18 14:05 Elbow Left Gram Stain - Final 07/09/18 14:05 Elbow Left Wound Culture - Preliminary Strep Pyogenes (Grp A) 07/09/18 11:35 Blood Venous Aerobic Blood Culture - Preliminary No Growth Day 1 07/09/18 11:35 Blood Venous Anaerobic Blood Culture - Preliminary No Growth Day 1 07/09/18 11:35 Blood Venous Aerobic Blood Culture - Preliminary No Growth Day 1 07/09/18 11:35 Blood Venous Anaerobic Blood Culture - Preliminary No Growth Day 1 07/09/18 13:00 Urine Legionella Urinary Antigen - Final Negative Legionella Antigen 07/09/18 13:00 Urine Streptococcus pneumoniae Ag Screen - Final Negative S. pneumo Antigen Assessment: Left elbow cellulitis Plan: New dressing applied to elbow Encouraged frequent elevation MRI ordered to r/o abscess or foreign body Continue on abx per hospitalist/ID
--- NOTE | 2018-07-11 11:49 | PN ---
Subjective Date of Service: 07/11/18 Interval History: Pt complaining of 5/10 headache not associated with visual changes, focal neuro findings, or nausea. Strep pyogenes is fish-sensitive. Staph positive on PCR but not growing on culture. Pt started on clinda last night, along with doubling of cefazolin. Reports pain is unchanged. Tmax overnight 100 F. WBC decreased. Erythema still beyond line drawn in ER - from upper arm to fingers. Swelling mildly improved from yesterday. Asked patient to keep arm elevated, continuously reinforcing. Ortho PA seen and evaluated pt this morning - MRI arm ordered. Objective Active Medications: Acetaminophen (Tylenol Tab*) 650 mg PO Q6H PRN PRN Reason: Fever or Mild Pain Last Admin: 07/11/18 08:19 Dose: 650 mg Al Hydrox/Mg Hydrox/Simethicone (Maalox Plus*) 30 ml PO Q6H PRN PRN Reason: INDIGESTION Albuterol/Ipratropium (Duoneb (Albuterol 2.5 Mg/Ipratropium 0.5 Mg)) 1 neb INH [id number] AWAKE [facility] Dextrose (D50w Syringe 50 Ml*) 12.5 gm IV PUSH .FOR FS < 60 - SS PRN PRN Reason: FS < 60 Enoxaparin Sodium (Lovenox(*)) 40 mg SUBCUT Q24H [facility] Last Admin: 07/10/18 12:24 Dose: 40 mg Folic Acid (Folvite Tab*) 1 mg PO DAILY [facility] Last Admin: 07/11/18 08:19 Dose: 1 mg Gabapentin (Neurontin Cap(*)) 300 mg PO TID [facility] Last Admin: 07/11/18 08:19 Dose: 300 mg Clindamycin HCl/Dextrose (Cleocin 600 Mg/50 Ml(*)) 600 mg in 50 mls @ 100 mls/ hr IV Q8H [facility] Last Admin: 07/11/18 02:28 Dose: 100 mls/hr Cefazolin Sodium/Dextrose (Kefzol 2 Gm Premix In Ors(*)) 2 gm in 50 mls @ 100 mls/hr IVPB Q8H [facility] Last Admin: 07/11/18 09:53 Dose: 100 mls/hr Insulin Human Lispro (Humalog*) 0 units SUBCUT ACHS [facility]; Protocol Last Admin: 07/11/18 08:18 Dose: 2 units Lorazepam (Ativan Inj*) 0 - 3 mg IV PUSH .PER [facility] PROTOCOL NATHALIA; Protocol Miscellaneous (Ativan Pyxis Montero) 1 ea N/A .PYXIS MONTERO PRN PRN Reason: PER PROTOCOL Morphine Sulfate (Morphine 4 Mg/Ml Vial (1 Ml)) 2 mg IV Q6H PRN PRN Reason: Moderate to Severe pain Last Admin: 07/10/18 07:30 Dose: 2 mg Multivitamins/Minerals (Theragran/Minerals Tab*) 1 tab PO DAILY [facility] Last Admin: 07/11/18 08:20 Dose: 1 tab Nicotine (Nicotine Patch 21 Mg/24 Hr*) 1 patch TRANSDERM DAILY [facility] Last Admin: 07/11/18 08:20 Dose: 1 patch Ondansetron HCl (Zofran Inj*) 4 mg IV Q6H PRN PRN Reason: NAUSEA Last Admin: 07/09/18 22:12 Dose: 4 mg Pharmacy Profile Note (Nicotine Patch Removal Note*) 1 note FOLLOW UP 2100 [facility] Last Admin: 07/10/18 20:05 Dose: 1 note Polyethylene Glycol/Electrolytes (Miralax*) 17 gm PO DAILY PRN PRN Reason: CONSTIPATION Senna (Senokot Tab*) 1 tab PO BEDTIME PRN PRN Reason: if no BM during day Sertraline HCl (Zoloft*) 25 mg PO DAILY [facility] Last Admin: 07/11/18 08:20 Dose: 25 mg Thiamine HCl (Vitamin B-1 Tab*) 100 mg PO DAILY [facility] Last Admin: 07/11/18 08:19 Dose: 100 mg Vital Signs - 8 hr 07/11/18 07/11/18 07/11/18 03:45 05:53 07:38 Temperature 98.2 F 97.8 F Pulse Rate 110 108 105 Respiratory 18 18 Rate Blood Pressure 116/70 124/68 (mmHg) O2 Sat by Pulse 92 90 95 Oximetry 07/11/18 07/11/18 07/11/18 08:19 08:26 09:55 Temperature 98.2 F Pulse Rate 113 Respiratory 18 24 24 Rate Blood Pressure 126/69 (mmHg) O2 Sat by Pulse 96 Oximetry 07/11/18 09:56 Temperature Pulse Rate Respiratory 24 Rate Blood Pressure (mmHg) O2 Sat by Pulse Oximetry Oxygen Devices in Use Now: Nasal Cannula Appearance: alert and conversant, mildy uncomfortable from headache Respiratory: Clear to Palpation Cardiovascular: RRR Abdominal: - - soft nondender, mild distension at baseline Lymphatic: - - axillary lymph nodes on L Extremities: - - LUE with diffuse erythema, beyond original line drawn around elbow on 07/09, distal pulses and sensation in tact; swelling but improved from day prior Skin: No Rash or Ulcers Neurological: Alert and Oriented x 3 Result Diagrams: 07/11/18 06:17 07/11/18 06:17 Microbiology and Other Data: Microbiology 07/09/18 13:00 Legionella Urinary Antigen - Final Urine Negative Legionella Antigen Streptococcus pneumoniae Ag Screen - Final Negative S. pneumo Antigen 07/09/18 14:05 Skin and Soft Tissue MRSA/MSSA (PCR - Final Elbow Left Mrsa Negative S.aureus Positive Gram Stain - Final Assess/Plan/Problems-Billing Assessment: 67W with alcohol use disorder, active tobacco use complicated by COPD, anxiety, who is presenting with desire to stop drinking and with chronic cough and left elbow pain. The patient was found with tachycardia, fever, leukocytosis, and left elbow concerning for cellulitis. - Patient Problems (1) Cellulitis Comment: Initially concerned for septic joint of L elbow given location and swelling of joint, but eval by ortho without concern for joint infection. Erythema progressed in hospital, now abx broadened. Cultures with Strep pyogenes. - appreciate Ortho consult - MRI ordered - cont IV cefazolin - increased to 2g q8h; added clinda IV (07/10 - ) (2) Alcohol abuse Comment: continue [facility] protocol continue gabapentin continue thiamine, folate (3) Anxiety and depression Comment: started on sertraline 25mg on 07/10 (4) COPD (chronic obstructive pulmonary disease) Comment: Does not seem to have an active exacerbation now. - nebs prn, add Spiriva given h/o COPD - s/p methylprednisolone IV in ER - will monitor for signs of respiratory infection - SaO2 goal 88-92%, wean O2 as tolerated, doesn't seem to need it now (5) Tobacco abuse Comment: NRT patch (6) Diabetes mellitus Comment: ISS while admitted, metformin on DC; should have statin as well - will defer to PCP
[2018-07-11] MEDS ORDERED: Albuterol 2.5 MG/3 ML NEB.SOL* (0.083%) INH PRN (12:16)
[2018-07-11] MEDS ORDERED: Spiriva Inhaler DEVICE* 1 EACH DEVICE INH SCH (13:00)
[2018-07-11] MEDS ORDERED: Albuterol/Ipratropium NEB.SOL* Albuterol 2.5 MG/Ipratropium 0.5 MG 3 ML INH SCH (13:00)
[2018-07-11] MEDS: Enoxaparin(*) 40 MG/0.4 ML SYR SUBCUT SCH (13:33)
--- NOTE | 2018-07-11 14:09 | PN ---
Progress Note - Progress Note Date of Service: 07/11/18 SOAP: Subjective: Pt reports pain unchanged LUE. Patient points to wrist as area of most pain. Patient also has headache. On Ancef, recently also on Clindamycin Objective: O: Non-toxic appearing, appears comfortable LUE: - tenderness in axilla, likely lymphadenopathy - swelling is essentially the same as yesterday - some increased erythema distal forearm and medial upper arm - PROM elbow 0-130, pain with terminal flexion - No pain with PROM wrist and fingers - Pulses intact and brisk, radial and ulnar arteries - TTP in sections of upper arm and forearm - Patient is comfortable using arm, pushing himself up in a chair without significant pain Wound culture posterior elbow area from ED grew Strep pyogenes Group A, fish- sensitive. Selected Entries 07/10/18 07/10/18 07/10/18 13:01 14:55 17:05 Temperature 98.0 F 97.9 F 97.8 F Pulse Rate Respiratory Rate Blood Pressure (mmHg) O2 Sat by Pulse Oximetry 07/10/18 07/10/18 07/10/18 20:40 21:57 21:58 Temperature 99.1 F 100.0 F 100 F Pulse Rate Respiratory Rate Blood Pressure (mmHg) O2 Sat by Pulse Oximetry 07/10/18 07/11/18 07/11/18 23:52 02:03 03:45 Temperature 98.7 F 98.6 F 98.2 F Pulse Rate Respiratory Rate Blood Pressure (mmHg) O2 Sat by Pulse Oximetry 07/11/18 07/11/18 07/11/18 05:53 07:38 08:26 Temperature 97.8 F 98.2 F Pulse Rate 105 113 Respiratory Rate Blood Pressure (mmHg) O2 Sat by Pulse Oximetry 07/11/18 07/11/18 10:00 12:00 Temperature 98.1 F 97.8 F Pulse Rate 115 109 Respiratory 24 Rate Blood Pressure 135/76 (mmHg) O2 Sat by Pulse 96 Oximetry Laboratory Tests 07/09/18 07/10/18 07/11/18 11:27 06:01 06:17 WBC 24.2 H 25.1 H 19.0 H Hct 43 Neut % (Auto) 94.6 Sodium Creatinine POC Glucose (mg/dL) C-Reactive Protein 05/05/19 05/05/19 05/05/19 06:17 07:40 11:52 WBC Hct Neut % (Auto) Sodium 136 Creatinine 0.78 POC Glucose (mg/dL) 170 H 198 H C-Reactive Protein 242.34 H Assessment: HD 3 LUE cellulitis, persistent Initial L olecranon bursitis after laceration or abrasion Immunocompromised with alcoholism, DM Plan: - I am concerned about the patient's lack of improvement on exam since yesterday. Given the organism, the lack of response to IV antibiotics, and the diffuse involvement of LUE, I need to suspect necrotizing fasciitis. - Given the patient's overall non-toxic appearance, his being afebrile, and his comfort using that arm yesterday, it was not something I considered. Since then he has had a low grade temp (100) and not improved. However, low grade temperature certainly could be from withdrawal from alcohol. - I still have a low suspicion for necrotizing fasciitis given the milder tenderness to palpation of his left upper extremity. As well, he is generally comfortable appearing and can comfortably weight bear with that arm. For that reason, I do not take the patient to the OR now for an I&D. But the patient certainly required daily physical exams and monitoring of body temperature, WBC , inflammatory markers, and physical exam. I am happy that his WBC dropped from yesterday to today. - I placed a DSD over elbow. - Discussed with Hospitalist. We will continue Ancef and Clinda. Hospitalist will discuss with ID possible conversion of Ancef to PCN G or any other modification given the lack of significant improvement on exam so far. - MRI left elbow and forearm to assess for foreign body or abscess elbow area as well as for fascial edema in the forearm. I want this done today given the higher acuity of this patient's illness. - I calculated a LRINEC score on-line, used by some for assessment of possible necrotizing fasciitis. Score was 5 points. This was using the patients glucose of 170 recently. This makes the patient low risk. However, there is certainly never zero risk and the patient's exam and clinical response to care will dictate management. - I added CRP and ESR to tomorrow's labs to have another gauge for response to treatment. - No surgery at this time. Patient was warned that this might be required if his left upper extremity worsens. Ortho will continue to follow.
[2018-07-11] MEDS: LORazepam INJ* 2 MG/ML 1 ML VIAL IV PUSH SCH ×2 (14:56→18:22)
[2018-07-11] MEDS: Tiotropium CAP.INH* CAP.INH/18 MCG (USE ORDER SET !) INH SCH (17:45)
[2018-07-11] MEDS: Nicotine Patch Removal NOTE FOLLOW UP SCH (21:14)
[2018-07-12] MEDS: ceFAZolin* 2 GM* Q8H (Duplex) IVPB SCH ×3 (02:43→17:47)
[2018-07-12] MEDS: Morphine 4 MG/ML VIAL (1 ml) 4 MG/ML VIAL IV PRN ×2 (02:47→22:37)
[2018-07-12] MEDS: Clindamycin 600 MG/D5W BAG(*) 600 MG/50 ML BAG IV SCH ×2 (03:28→11:35)
[2018-07-12 05:49] LABS: Hematocrit 43 % (42-52); Hemoglobin 14.4 g/dL (14.0-18.0); Mean Corpuscular HGB Conc 34 g/dL (31-36); Mean Corpuscular Hemoglobin 32 pg (27-31); Mean Corpuscular Volume 95 fL (80-94); Mean Platelet Volume 7.2 fL (7.4-10.4); Platelet Count 182 10^3/uL (150-450); Red Blood Count 4.48 10^6 /uL (4.18-5.48); Red Cell Distribution Width 16 % (10.5-15); White Blood Count 15.3 10^3/uL (3.5-10.8)
[2018-07-12 06:09] LABS: Albumin 3.1 g/dL (3.2-5.2); Albumin/Globulin Ratio 1.2 (1-3); BUN/Creatinine Ratio 18.6 (8-20); C Reactive Protein 218.33 mg/L (<8.01); Calcium 8.2 mg/dL (8.6-10.3); EGFR African American 136.9 (>60); EGFR Non-African American 113.2 (>60); Globulin 2.6 g/dL (2-4); Total Bilirubin 0.4 mg/dL (0.2-1.0); Total Protein 5.7 g/dL (6.4-8.9)
[2018-07-12 06:59] LABS: ABS Basophils 0.1 10^3/ul (0-0.2); ABS Eosinophils 0.3 10^3/ul (0-0.6); ABS Lymphocytes 0.7 10^3/ul (1.0-4.8); ABS Monocytes 0.4 10^3/ul (0-0.8); ABS Neutrophils 13.7 10^3/ul (1.5-7.7); Eosinophil % 2.2 %; Lymphocyte % 4.5 %
[2018-07-12] MEDS: Tiotropium CAP.INH* CAP.INH/18 MCG (USE ORDER SET !) INH SCH (08:06)
[2018-07-12] MEDS ORDERED: Ketorolac INJ* 15 MG/ML 1 ML VIAL IV PUSH ONE (08:35)
[2018-07-12] MEDS: Nicotine PATCH 21 MG/24 HR* PATCH TRANSDERM SCH (08:43)
[2018-07-12] MEDS: Folic Acid TAB* 1 MG PO SCH (08:44)
[2018-07-12] MEDS: Gabapentin CAP(*) 300 MG PO SCH ×3 (08:46→20:20)
[2018-07-12] MEDS: Thiamine TAB* 100 MG TAB PO SCH (08:46)
[2018-07-12] MEDS: Sertraline* 25 MG TAB PO SCH (08:51)
[2018-07-12] MEDS: Multivitamins/Minerals TAB PO SCH (08:51)
[2018-07-12] MEDS: Insulin LISPRO* 1 UNITS UNIT SUBCUT SCH ×4 (09:15→22:36)
--- NOTE | 2018-07-12 09:27 | PN ---
Subjective Date of Service: 07/12/18 Interval History: No fever overnight. Had 2 doses of Ativan yesterday afternoon/evening. Pt reports feeling tired because he didn't sleep well overnight due to [facility] protocol. States that his elbow pain has improved but his hand pain is 9.5/10. Hand continues to be erythematous and with 2+ edema, but again noted that patient is resting hand in dependent position and not elevating his arm. Upper arm erythema has receded from marker line drawn yesterday. CRP and WBC have decreased. MRI with cellulitis with some fasciitis. Objective Active Medications: Acetaminophen (Tylenol Tab*) 975 mg PO Q8H PRN PRN Reason: Fever or Mild Pain Al Hydrox/Mg Hydrox/Simethicone (Maalox Plus*) 30 ml PO Q6H PRN PRN Reason: INDIGESTION Albuterol (Ventolin 2.5 Mg/3 Ml Neb.Ruth*) 2.5 mg INH [id number] AWAKE PRN PRN Reason: sob/wheezing Device (Tiotropium Inhaler Device*) 1 each INH .USE w/ SPIRIVA CAPS [facility] Dextrose (D50w Syringe 50 Ml*) 12.5 gm IV PUSH .FOR FS < 60 - SS PRN PRN Reason: FS < 60 Enoxaparin Sodium (Lovenox(*)) 40 mg SUBCUT Q24H [facility] Last Admin: 07/11/18 13:33 Dose: 40 mg Folic Acid (Folvite Tab*) 1 mg PO DAILY [facility] Last Admin: 07/11/18 08:19 Dose: 1 mg Gabapentin (Neurontin Cap(*)) 300 mg PO TID [facility] Last Admin: 07/11/18 20:52 Dose: 300 mg Clindamycin HCl/Dextrose (Cleocin 600 Mg/50 Ml(*)) 600 mg in 50 mls @ 100 mls/ hr IV Q8H [facility] Last Admin: 07/12/18 03:28 Dose: 100 mls/hr Cefazolin Sodium/Dextrose (Kefzol 2 Gm Premix In Ors(*)) 2 gm in 50 mls @ 100 mls/hr IVPB Q8H [facility] Last Admin: 07/12/18 02:43 Dose: 100 mls/hr Insulin Human Lispro (Humalog*) 0 units SUBCUT ACHS [facility]; Protocol Last Admin: 07/11/18 21:11 Dose: 2 units Lorazepam (Ativan Inj*) 0 - 3 mg IV PUSH .PER [facility] PROTOCOL [facility]; Protocol Last Admin: 07/11/18 18:22 Dose: 1.5 mg Miscellaneous (Ativan Pyxis Montero) 1 ea N/A .PYXIS MONTERO PRN PRN Reason: PER PROTOCOL Morphine Sulfate (Morphine 4 Mg/Ml Vial (1 Ml)) 4 mg IV Q6H PRN PRN Reason: Moderate to Severe pain Multivitamins/Minerals (Theragran/Minerals Tab*) 1 tab PO DAILY [facility] Last Admin: 07/11/18 08:20 Dose: 1 tab Nicotine (Nicotine Patch 21 Mg/24 Hr*) 1 patch TRANSDERM DAILY [facility] Last Admin: 07/11/18 08:20 Dose: 1 patch Ondansetron HCl (Zofran Inj*) 4 mg IV Q6H PRN PRN Reason: NAUSEA Last Admin: 07/09/18 22:12 Dose: 4 mg Pharmacy Profile Note (Nicotine Patch Removal Note*) 1 note FOLLOW UP 2100 [facility] Last Admin: 07/11/18 21:14 Dose: 1 note Polyethylene Glycol/Electrolytes (Miralax*) 17 gm PO DAILY PRN PRN Reason: CONSTIPATION Senna (Senokot Tab*) 1 tab PO BEDTIME PRN PRN Reason: if no BM during day Sertraline HCl (Zoloft*) 25 mg PO DAILY [facility] Last Admin: 07/11/18 08:20 Dose: 25 mg Thiamine HCl (Vitamin B-1 Tab*) 100 mg PO DAILY [facility] Last Admin: 07/11/18 08:19 Dose: 100 mg Tiotropium Stryker (Spiriva Cap.Inh*) 1 cap INH DAILY [facility] Last Admin: 07/12/18 08:06 Dose: 1 cap Vital Signs - 8 hr 07/12/18 07/12/18 07/12/18 01:45 02:47 03:45 Temperature 98.4 F Pulse Rate 107 Respiratory 24 22 20 Rate Blood Pressure 155/84 (mmHg) O2 Sat by Pulse 91 Oximetry 07/12/18 07/12/18 07/12/18 03:54 03:55 05:46 Temperature 99 F 99.0 F 98.9 F Pulse Rate 107 107 114 Respiratory 22 28 20 Rate Blood Pressure 136/82 136/82 145/89 (mmHg) O2 Sat by Pulse 90 89 90 Oximetry 07/12/18 08:08 Temperature Pulse Rate 91 Respiratory 18 Rate Blood Pressure (mmHg) O2 Sat by Pulse 90 Oximetry Oxygen Devices in Use Now: Nasal Cannula Appearance: chronically ill appearing, nontoxic, comfortable, alert and conversant; sitting in chair at bedside Ears/Nose/Mouth/Throat: Mucous Membranes Moist Neck: NL Appearance and Movements; NL JVP Respiratory: - - decreased air movement, no wheeze Cardiovascular: RRR Abdominal: - - mild distension at baseline, soft and nontender Extremities: - - LUE with erythema from upper arm (although receding from line) distally to fingertips, 2+ pitting edema over hand and wrist; hand tender to palpation; able to move elbow and wrist joints without pain; elbow with bandage - otherwise no skin breakdown or rash Neurological: Alert and Oriented x 3 Result Diagrams: 07/12/18 05:23 07/12/18 05:23 Microbiology and Other Data: Microbiology 07/09/18 13:00 Legionella Urinary Antigen - Final Urine Negative Legionella Antigen Streptococcus pneumoniae Ag Screen - Final Negative S. pneumo Antigen 07/09/18 14:05 Skin and Soft Tissue MRSA/MSSA (PCR - Final Elbow Left Mrsa Negative S.aureus Positive Gram Stain - Final Assess/Plan/Problems-Billing Assessment: 67W with alcohol use disorder, active tobacco use complicated by COPD, anxiety, who is presenting with desire to stop drinking and with chronic cough and left elbow pain. The patient was found with tachycardia, fever, leukocytosis, and left elbow concerning for cellulitis. - Patient Problems (1) Cellulitis Comment: Erythema progressed in hospital, now abx broadened. Cultures with Strep pyogenes. - appreciate Ortho consult - MRI with some fasciitis - ID also consulted - cont IV cefazolin (5/3 - ) increased to 2g q8h; added clinda IV (5/ - ) - pain control with APA/morphine prns; keep arm elevated (2) Alcohol abuse Comment: continue [facility] protocol continue gabapentin - should be discharged on this continue thiamine, folate (3) COPD (chronic obstructive pulmonary disease) Comment: Does not seem to have an active exacerbation now but s/p IV steroids in ER. - nebs prn, added Spiriva - SaO2 goal 88-92%, wean O2 as tolerated; may need home O2 (4) Anxiety and depression Comment: started on sertraline 25mg on 07/10 (5) Tobacco abuse Comment: NRT patch (6) Diabetes mellitus Comment: ISS while admitted, metformin on DC; should have statin as well - will defer to PCP Status and Disposition: Inpatient on IV abx.
[2018-07-12] MEDS: Enoxaparin(*) 40 MG/0.4 ML SYR SUBCUT SCH (12:41)
[2018-07-12] MEDS: Clindamycin 600 MG IVPREMIX(* 600 MG/50 ML SDV IV SCH ×2 (13:12→20:22)
--- NOTE | 2018-07-12 13:18 | PN ---
Progress Note - Progress Note Date of Service: 07/12/18 SOAP: Subjective: []Pt seen at bedside. He denies feeling of fever or chills. He is unable to determine if his left arm redness/pain/swelling has improved from yesterday. He denies chest pain, shortness of breath, dizziness or nausea. WBC, CRP trending down, patient has been afebrile overnight. Objective: [] General: nontoxic appearing, NAD LUE: Elbow with dime size scab, no current discharge. Erythema is within the demarcated lines on the upper arm, though most pronounced from elbow distally. Erythematous area is warm. He is moderately tender to palpation of the forearm and dorsum of the hand, though entire arm is compressible. There is no obvious fluctuance or induration. Active Forward flexion of the shoulder is not painful. Nonpainful Elbow AROM 0-130. Wrist flexion 45, extension 45 patient feels he is limited by swelling more than pain. No pain or limitation of ulnar and radial deviation. Flexion and extension of MCPs, PIPs, DIPs intact without pain. Capillary refill less than two seconds distally, radial pulse 2+, sensation intact to light touch throughout the extremity. Assessment: []HD 4 LUE cellulitis, persistent Initial L olecranon bursitis after laceration or abrasion Immunocompromised with alcoholism, DM Plan: WBAT LUE Continue to monitor wbc, CRP, sed rate and to follow exam Dr. Stephens will eval tonight No evidence of LUE DVT on dopplar MRI LUE: FINDINGS PER RADIOLOGY: There is a large amount of soft tissue swelling present around the elbow. This is mainly within the subcutaneous tissues although there is some edema extending into the the fascia deep to the biceps muscle above the level of the antecubital fossa. No other fascial edema is noted. No significant muscle edema is seen. The bones are normal in signal intensity. There is a moderate joint effusion present. IMPRESSION: 1. FINDINGS MOST CONSISTENT WITH CELLULITIS WITH SOME FASCIITIS DESCRIBED. 2. JOINT EFFUSION. Laboratory Last Values WBC 15.3 10^3/uL (3.5-10.8) H 07/12/18 05:23 RBC 4.48 10^6 /uL (4.18-5.48) 07/12/18 05:23 Hgb 14.4 g/dL (14.0-18.0) 07/12/18 05:23 Hct 43 % (42-52) 07/12/18 05:23 MCV 95 fL (80-94) H 07/12/18 05:23 MCH 32 pg (27-31) H 07/12/18 05:23 MCHC 34 g/dL (31-36) 07/12/18 05:23 RDW 16 % (10.5-15) H 07/12/18 05:23 Plt Count 182 10^3/uL (150-450) 07/12/18 05:23 MPV 7.2 fL (7.4-10.4) L 07/12/18 05:23 Neut % (Auto) 90.0 % 07/12/18 05:23 Lymph % (Auto) 4.5 % 07/12/18 05:23 [place] % (Auto) 2.9 % 07/12/18 05:23 Eos % (Auto) 2.2 % 07/12/18 05:23 Baso % (Auto) 0.4 % 07/12/18 05:23 Absolute Neuts (auto) 13.7 10^3/ul (1.5-7.7) H 07/12/18 05:23 Absolute Lymphs (auto) 0.7 10^3/ul (1.0-4.8) L 07/12/18 05:23 Absolute Monos (auto) 0.4 10^3/ul (0-0.8) 07/12/18 05:23 Absolute Eos (auto) 0.3 10^3/ul (0-0.6) 07/12/18 05:23 Absolute Basos (auto) 0.1 10^3/ul (0-0.2) 07/12/18 05:23 Absolute Nucleated RBC 0.0 10^3/ul 07/12/18 05:23 Neutrophils % 87.0 % 07/09/18 11:27 Lymphocytes % 0.0 % 07/09/18 11:27 Monocytes % 13.0 % 07/09/18 11:27 Eosinophils % 0.0 % 07/09/18 11:27 Basophils % 0.0 % 07/09/18 11:27 Nucleated RBC % 0.0 07/12/18 05:23 Abs Neuts (Manual) 21.1 10^3/ul (1.5-7.7) H 07/09/18 11:27 Abs Lymphs (Manual) 0.0 10^3/ul (1.0-4.8) L 07/09/18 11:27 Abs Monocytes (Manual) 3.1 10^3/ul (0-0.8) H 07/09/18 11:27 Absolute Eos (Manual) 0.0 10^3/ul (0-0.6) 07/09/18 11:27 Abs Basophils (Manual) 0.0 10^3/ul (0-0.2) 07/09/18 11:27 Normal RBC Morphology Normal (Normal) 07/09/18 11:27 ESR 27 mm/Hr (0-19) H 07/12/18 05:23 INR (Anticoag Therapy) 1.17 (0.82-1.09) H 07/09/18 11:27 APTT 32.9 seconds (26.0-36.3) 07/09/18 11:27 ABG pH 7.46 (7.35-7.45) H 07/09/18 11:12 ABG pCO2 32 mmHg (35-45) L 07/09/18 11:12 ABG pO2 78 mmHg (80-100) L 07/09/18 11:12 ABG HCO3 24.6 mmol/L (19-31) 07/09/18 11:12 ABG O2 Saturation 98.3 % (94.0-98.0) H 07/09/18 11:12 ABG Base Excess -0.3 mmol/L (-2.0-2.0) 07/09/18 11:12 Sodium 134 mmol/L (135-145) L 07/12/18 05:23 Potassium 4.0 mmol/L (3.5-5.0) 07/12/18 05:23 Chloride 98 mmol/L (101-111) L 07/12/18 05:23 Carbon Dioxide 30 mmol/L (22-32) 07/12/18 05:23 Anion Gap 6 mmol/L (2-11) 07/12/18 05:23 BUN 13 mg/dL (6-24) 07/12/18 05:23 Creatinine 0.70 mg/dL (0.67-1.17) 07/12/18 05:23 Est GFR ( Amer) 136.9 (>60) 07/12/18 05:23 Est GFR (Non-Af Amer) 113.2 (>60) 07/12/18 05:23 BUN/Creatinine Ratio 18.6 (8-20) 07/12/18 05:23 Glucose 137 mg/dL (70-100) H 07/12/18 05:23 POC Glucose (mg/dL) 129 mg/dL (70-100) H 07/12/18 12:31 Hemoglobin A1c 7.4 % (4.0-5.6) H 07/10/18 06:01 Lactic Acid 2.3 mmol/L (0.5-2.0) H* 07/09/18 17:15 Calcium 8.2 mg/dL (8.6-10.3) L 07/12/18 05:23 Magnesium 2.0 mg/dL (1.9-2.7) 07/12/18 05:23 Total Bilirubin 0.40 mg/dL (0.2-1.0) 07/12/18 05:23 AST 20 U/L (13-39) 07/12/18 05:23 ALT 17 U/L (7-52) 07/12/18 05:23 Alkaline Phosphatase 78 U/L (34-104) 07/12/18 05:23 Ammonia 49 mcmol/L (16-53) 07/09/18 17:15 Total Creatine Kinase 73 U/L (10-223) 07/11/18 06:17 CK-MB (CK-2) 4.8 ng/mL (0.6-6.3) 07/09/18 11:27 Troponin I 0.21 ng/mL (<0.04) H* 07/10/18 06:01 C-Reactive Protein 218.33 mg/L (<8.01) H 07/12/18 05:23 B-Natriuretic Peptide 52 pg/mL (<=100) 07/09/18 11:27 Total Protein 5.7 g/dL (6.4-8.9) L 07/12/18 05:23 Albumin 3.1 g/dL (3.2-5.2) L 07/12/18 05:23 Globulin 2.6 g/dL (2-4) 07/12/18 05:23 Albumin/Globulin Ratio 1.2 (1-3) 07/12/18 05:23 Triglycerides 95 mg/dL 07/10/18 06:01 Cholesterol 131 mg/dL 07/10/18 06:01 LDL Cholesterol 74 mg/dL 07/10/18 06:01 HDL Cholesterol 37.8 mg/dL 07/10/18 06:01 TSH 1.83 mcIU/mL (0.34-5.60) 07/11/18 06:17 Urine Color Yellow 07/09/18 13:11 Urine Appearance Clear 07/09/18 13:11 Urine pH 5.0 (5-9) 07/09/18 13:11 Ur Specific [place] 1.005 (1.010-1.030) L 07/09/18 13:11 Urine Protein Negative (Negative) 07/09/18 13:11 Urine Ketones Trace (Negative) A 07/09/18 13:11 Urine Blood 1+ (Negative) A 07/09/18 13:11 Urine Nitrate Negative (Negative) 07/09/18 13:11 Urine Bilirubin Negative (Negative) 07/09/18 13:11 Urine Urobilinogen Negative (Negative) 07/09/18 13:11 Ur Leukocyte Esterase Negative (Negative) 07/09/18 13:11 Urine WBC (Auto) Absent (Absent) 07/09/18 13:11 Urine RBC (Auto) Trace(0-2/hpf) (Absent) 07/09/18 13:11 Ur Squamous Epith Cells Present (Absent) A 07/09/18 13:11 Urine Bacteria Absent (Absent) 07/09/18 13:11 Urine Glucose 2+(150 mg/dl) (Negative) A 07/09/18 13:11 Vital Signs Temp 97.7 F 07/12/18 12:14 Pulse 107 07/12/18 12:14 Resp 26 07/12/18 12:14 BP 150/86 07/12/18 12:14 Pulse Ox 95 07/12/18 12:14 Intake & Output 07/11/18 07/12/18 07/12/18 18:59 06:59 18:59 Intake Total 630 400 0 Output Total 275 725 Balance 355 -325 0 Weight 203 lb Intake: IV Fluids 160 ABX 160 Oral 470 400 0 Output: Urine 275 725 Other: Estimated Void Small # Bowel Movements 0 0 # Voids 1 <Rupesh,Hayde M - Last Filed: 07/12/18 13:19> - Progress Note SOAP: Subjective: - Patient describes left upper extremity as improved compared with yesterday. Less painful, less swollen. Objective: Resting in bed, appears comfortable, not in any obvious visual discomfort LUE: - Still significant swelling, erythema from hand to axilla - Decreased erythema upper arm compared with yesterday - Slightly decreased swelling soft tissue of forearm, wrist, hand - Elbow 0-140 without pain at terminal flexion as was the case yesterday - More comfortable active ROM fingers, wrist than yesterday - Still mild TTP hand, forearm, upper arm. No crepitus. Can tolerate my squeezing his upper arm, elbow, forearm, wrist, hand Microbiology 07/09/18 14:05 Elbow Left Skin and Soft Tissue MRSA/MSSA (PCR - Final 07/09/18 14:05 Elbow Left Gram Stain - Final Mrsa Negative S.aureus Positive 07/09/18 14:05 Elbow Left Wound Culture - Preliminary Strep Pyogenes (Grp A) Selected Entries 07/11/18 07/11/18 07/11/18 18:12 20:00 20:01 Temperature 98.5 F 97.6 F 97.6 F Pulse Rate Respiratory Rate Blood Pressure (mmHg) O2 Sat by Pulse Oximetry 07/11/18 07/11/18 07/12/18 21:44 23:40 01:45 Temperature 97 F 98.7 F 98.4 F Pulse Rate Respiratory Rate Blood Pressure (mmHg) O2 Sat by Pulse Oximetry 07/12/18 07/12/18 07/12/18 03:54 03:55 05:46 Temperature 99 F 99.0 F 98.9 F Pulse Rate Respiratory Rate Blood Pressure (mmHg) O2 Sat by Pulse Oximetry 07/12/18 07/12/18 07/12/18 08:08 10:59 12:14 Temperature 98.3 F 98.2 F 97.7 F Pulse Rate Respiratory Rate Blood Pressure (mmHg) O2 Sat by Pulse Oximetry 07/12/18 14:02 Temperature 97.7 F Pulse Rate 108 Respiratory 22 Rate Blood Pressure 154/78 (mmHg) O2 Sat by Pulse 93 Oximetry Laboratory Tests 07/09/18 07/10/18 07/11/18 11:27 06:01 06:17 WBC 25.1 H 19.0 H Neut % (Auto) 96.2 94.6 ESR C-Reactive Protein 49.89 H 07/11/18 07/12/18 07/12/18 06:17 05:23 05:23 WBC 15.3 H Neut % (Auto) 90.0 ESR C-Reactive Protein 242.34 H 218.33 H 07/12/18 05:23 WBC Neut % (Auto) ESR 27 H C-Reactive Protein MRI L elbow showed much subcutaneous edema about the elbow and only a small amount of fascial swelling deep to the biceps muscle. Also, effusion elbow. No aggressive or diffuse fascial edema or necrotic subQ tissue noted. Assessment: HD 4 LUE cellulitis, Group A Strep, with origin of olecranon bursa-area laceration/abrasion Plan: - Continue Ancef/Clinda IV abx or make changes per ID service - Continue IV fluid aggressive, 100cc per hour - No significant suspicion of necrotizing fasciitis, patient comfortable despite his pain with an improving clinical exam and labs - I had made him NPO today prior to my seeing him in case I had any suspicion of nec fasciitis and would then therefore have done an I&D for diagnosis and treatment. However, with improving comfort and exam, I decided against this. - Continue to monitor body temperature as well as CRP & WBC & neutrophil trends to confirm our slow, successful (to this point) treatment of this very aggressive Group A strep cellulitis. Hopefully, the CRP will show a significant decrease in the next 1-2 days, which would parallel slow, but appreciable clinical improvement. - I had ordered an MRI forearm urgently yesterday 07/11/2018. I'm not sure why this wasn't done with the MRI elbow today. In and of itself, not performed for diagnostic ruleout of nec fasc as that is a diagnosis made on exam and by incision and evaluation. But it is to provide some more context in this unusually aggressive infection in an immunocompromised patient. It can be done tomorrow 07/13/18. - To reduce swelling left upper extremity, I recommend elevation on pillows and ice packs. <Mohsen Stephens - Last Filed: 07/12/18 19:20>
[2018-07-12] MEDS: Acetaminophen TAB* 325 MG PO PRN (17:15)
--- NOTE | 2018-07-12 22:10 | CONS ---
CONSULTATION REPORT: DATE OF ADMISSION: 07/09/18 DATE OF CONSULT: 07/12/18 PRIMARY CARE PROVIDER: None. PROVIDER REQUESTING CONSULTATION: Dr. Ingris Wei. CONSULTING SERVICE: Infectious Disease. ATTENDING PROVIDER: Dr. Sherif Butts * (dictated by Twyla Lozano NP). REASON FOR CONSULTATION: Left arm infection. IMPRESSION: 1. Left upper extremity cellulitis with associated olecranon bursitis. Status post incision in the emergency room by the ED provider, noted to have purulent drainage. The initial wound culture PCR showing MSSA. Preliminary wound culture is showing Streptococcus pyogenes. Blood cultures with no growth on day 3. Leukocytosis is improving. ESR is 27. Initial CRP was 49, up to 242 yesterday and 218 today. Patient feels that overall the arm may be slowly improving. He was undergoing a left US Venous Doppler at the time of this consultation. MRI is pending at this time. 2. Alcohol use disorder. 3. Diabetes mellitus type 2. 4. Chronic obstructive pulmonary disease. 5. PENICILLIN allergy. Patient reports it causes rash in his adulthood. PLAN/RECOMMENDATIONS: Recommend continuing cefazolin and clindamycin until final cultures are back and we will follow the progression of his erythema. We will add CK to today's labs. HISTORY OF PRESENT ILLNESS: Mr. Russ is a 67-year-old male with past medical history significant for alcohol use disorder, COPD, current smoker, and anxiety , who presented to the emergency room requesting alcohol detox. Mr. Russ reports that he is a binge drinker, often goes several months without drinking and then drinks heavily for 1 month. He has done this throughout his entire adult life, repeating the same pattern. He reports recently drinking approximately 30 beers daily for the last month. He was not feeling well for several days, this prompted his decision to come to the emergency room for assistance with alcohol withdrawal. The patient was evaluated in the emergency room. He noted left elbow discomfort. According tot he emergency room provider 's note he created an incision and there was a small amount of purulent drainage. Denied any trauma or recent wounds or injuries to the arm. He also reported an occasional nonproductive cough that has been present for a few months. His initial labs in the emergency room showed leukocytosis with a white blood cell count of 24,000. He was referred to the hospitalist service for evaluation. During his hospitalization, he was also seen in consultation by Dr. Mohsen Stephens with Orthopedic Surgery for erythema, pain, and tenderness over the left elbow. There was concern for possible septic joint or an olecranon bursa infection. Dr. Stephens felt this likely represented cellulitis and traumatic olecranon bursitis. He was noted to have full range of motion of the elbow. He had been followed by Orthopedics, who had a low suspicion concern for necrotizing fascitis as the arm continued to worsen despite being on IV antibiotics. Plans were made for an MRI. THe patient was reporting some tenderness in his axilla with likely lymphadenopathy. He has been on IV cefazolin and clindamycin. The hospitalists have been in contact with the infectious disease team at [facility] for assistance and antibiotic selection. He denies any fevers, chills. He reports shortness of breath at baseline. He denies chest pain. He reports left forearm discomfort, he rates as an 8/10. Denies rash or diarrhea. He reports constipation, his last bowel movement was 2 days ago on 07/10/18. He denies urinary symptoms such as urgency, frequency, or dysuria. He denies any recent travel. PAST MEDICAL HISTORY: 1. Alcohol use disorder. 2. Diabetes mellitus type 2, not on medications. 3. Anxiety. 4. COPD. PAST SURGICAL HISTORY: Status post appendectomy. HOME MEDICATIONS: Metoprolol succinate 50 mg by mouth twice daily. Hospital medications: 1. Acetaminophen 975 mg by mouth every 8 hours as needed for fever or pain. 2. Maalox Plus 30 mL by mouth every 6 hours as needed for indigestion. 3. Albuterol 2.5 mg/3 mL nebulizer, 2.5 mg inhalation every 4 hours while awake as needed for shortness of breath or wheeze. 4. Cefazolin 2 g IV every 8 hours. 5. Clindamycin 600 mg IV every 8 hours. 6. Dextrose 12.5 g IV push for glucose less than 60 as needed. 7. Lovenox 40 mg subcutaneous every 24 hours. 8. Folic acid 1 mg by mouth daily. 9. Gabapentin 300 mg by mouth 3 times daily. 10. Humalog insulin sliding scale subcutaneous with meals and at bedtime. 11. Lorazepam 0 to 1 mg IV per [facility] protocol. 12. Morphine sulfate 4 mg IV every 6 hours as needed for pain. 13. Multivitamin 1 tablet by mouth daily. 14. Nicotine patch 21 mg transdermal daily. 15. Zofran 4 mg IV every 6 hours as needed for nausea. 16. MiraLAX 17 g by mouth daily as needed for constipation. 17. Senna 1 tablet by mouth at bedtime as needed for constipation. 18. Zoloft 25 mg by mouth daily. 19. Thiamine 100 mg by mouth daily. 20. Spiriva 1 capsule inhalation daily. ALLERGIES: PENICILLIN causes a rash. FAMILY HISTORY: He denies family history of coronary artery disease. His mother is with a history of diabetes and unknown cancer. Denies any family history of recurrent or resistant infections. SOCIAL HISTORY: Currently, he drinks alcohol. He reports that he has been a binge drinker all of his adult life, drinking for 1 month, and then not drinking for 4 to 5 months. He has currently been drinking 30 beers daily for the last month. He is a current smoker, smoking since he was 20 years old, up to 2 packs a day. He denies recreational drug use. REVIEW OF SYSTEMS: I performed a 10-point review of systems. All the pertinent positives and negatives are mentioned in the history of present illness. The remaining review of systems is negative. PHYSICAL EXAM: Vital Signs: Temperature 98.9, heart rate 91, respiratory rate 18, O2 sat 90% on 2 L via nasal cannula, blood pressure 145/89. General Appearance: Alert, appears to be in no acute distress. Head: Normocephalic, atraumatic. ENT: Pupils are equal and reactive to light. Extraocular movements are intact. Mucous membranes are moist. No thrush. Neck: Supple. No lymphadenopathy. Neurological: Alert and oriented x4. Cranial nerves II through XII are grossly intact. Cardiovascular: Regular rate and rhythm. S1 and S2 present. No murmurs, rubs, or gallops heard. Respiratory: No accessory muscle use. Lung are clear to auscultation bilateral. Abdomen: Soft , nontender, nondistended. Bowel sounds are present x4. Extremities: No lower extremity edema. Left upper extremity from the biceps to the hand with 1 + pitting edema. Musculoskeletal: No clubbing or cyanosis noted. The patient exhibits good strength in all extremities. He has full range of motion of his left shoulder, elbow, and wrist. Psychological: Calm and cooperative. Skin: There is erythema to the left arm from the biceps to the wrist. DIAGNOSTIC STUDIES/LABORATORY DATA: Sodium 134, potassium 4.0, chloride 98, CO2 is 38, BUN 13, creatinine 0.70, glucose 137. White blood cell count 15.3, hemoglobin 14.4, hematocrit 43, platelet count 182. CRP 218.33. Blood cultures with no growth on day 2. Urinalysis significant for trace ketones, blood 1+, squamous epithelial cells present, and glucose 2+. Left elbow wound culture is showing PCR, MSSA positive with preliminary wound culture showing Streptococcus pyogenes group A. See impression and recommendations as outlined above. Thank you for asking us to see Mr. Russ in consultation. TIME SPENT: Time spent for this consultation was approximately 40 minutes, greater than half of that was spent with the patient discussing medications, past medical history, the events leading to his arrival at the hospital and performing a physical examination. The case has been reviewed with the attending, Dr. Butts, who agrees with the plan of care. Reviewed by TRACEE CHEN 07/15/18 1526 [id number]/[facility] #: [id number] DOROTHY
[2018-07-12] MEDS: Nicotine Patch Removal NOTE FOLLOW UP SCH (22:40)
[2018-07-13] MEDS: ceFAZolin* 2 GM* Q8H (Duplex) IVPB SCH ×3 (02:58→18:05)
[2018-07-13] MEDS: Clindamycin 600 MG IVPREMIX(* 600 MG/50 ML SDV IV SCH ×3 (03:47→19:29)
[2018-07-13 07:02] LABS: Hematocrit 44 % (42-52); Hemoglobin 14.6 g/dL (14.0-18.0); Mean Corpuscular HGB Conc 33 g/dL (31-36); Mean Corpuscular Hemoglobin 32 pg (27-31); Mean Corpuscular Volume 95 fL (80-94); Platelet Count 194 10^3/uL (150-450); Red Blood Count 4.64 10^6 /uL (4.18-5.48); Red Cell Distribution Width 16 % (10.5-15); White Blood Count 14.9 10^3/uL (3.5-10.8)
[2018-07-13 07:32] LABS: BUN/Creatinine Ratio 23.5 (8-20); Calcium 8.2 mg/dL (8.6-10.3); EGFR African American 141.6 (>60); Magnesium 2.2 mg/dL (1.9-2.7); Potassium 3.4 mmol/L (3.5-5.0)
[2018-07-13] MEDS: Tiotropium CAP.INH* CAP.INH/18 MCG (USE ORDER SET !) INH SCH (07:40)
--- NOTE | 2018-07-13 07:55 | PN ---
Subjective Date of Service: 07/13/18 Interval History: Pt is feeling ok this AM. He has 2 mild complaints. He states he has been feeling queasy and has a burning sensation in his stomach. He also has not had a BM in quite sometime and asks for something to help him go. He continues to have some pain in the L arm. He does not really answer me when I ask if he thinks the redness/swelling is any better. Objective Active Medications: Acetaminophen (Tylenol Tab*) 975 mg PO Q8H PRN PRN Reason: Fever or Mild Pain Last Admin: 07/12/18 17:15 Dose: 975 mg Al Hydrox/Mg Hydrox/Simethicone (Maalox Plus*) 30 ml PO Q6H PRN PRN Reason: INDIGESTION Last Admin: 07/12/18 20:18 Dose: 30 ml Albuterol (Ventolin 2.5 Mg/3 Ml Neb.Ruth*) 2.5 mg INH [id number] AWAKE PRN PRN Reason: sob/wheezing Device (Tiotropium Inhaler Device*) 1 each INH .USE w/ SPIRIVA CAPS [facility] Dextrose (D50w Syringe 50 Ml*) 12.5 gm IV PUSH .FOR FS < 60 - SS PRN PRN Reason: FS < 60 Enoxaparin Sodium (Lovenox(*)) 40 mg SUBCUT Q24H [facility] Last Admin: 07/12/18 12:41 Dose: Not Given Folic Acid (Folvite Tab*) 1 mg PO DAILY [facility] Last Admin: 07/12/18 08:44 Dose: 1 mg Gabapentin (Neurontin Cap(*)) 300 mg PO TID [facility] Last Admin: 07/12/18 20:20 Dose: 300 mg Cefazolin Sodium/Dextrose (Kefzol 2 Gm Premix In Ors(*)) 2 gm in 50 mls @ 100 mls/hr IVPB Q8H [facility] Last Admin: 07/13/18 02:58 Dose: 100 mls/hr Clindamycin HCl/Dextrose (Cleocin 600 Mg Ivpremix(*) Sdv) 600 mg in 50 mls @ 100 mls/hr IV Q8H [facility] Last Admin: 07/13/18 03:47 Dose: 100 mls/hr Insulin Human Lispro (Humalog*) 0 units SUBCUT ACHS [facility]; Protocol Last Admin: 07/12/18 22:36 Dose: Not Given Lactulose (Lactulose*) 30 ml PO ONCE ONE Stop: 07/13/18 07:43 Morphine Sulfate (Morphine 4 Mg/Ml Vial (1 Ml)) 4 mg IV Q6H PRN PRN Reason: Moderate to Severe pain Last Admin: 07/12/18 22:37 Dose: 4 mg Multivitamins/Minerals (Theragran/Minerals Tab*) 1 tab PO DAILY [facility] Last Admin: 07/12/18 08:51 Dose: 1 tab Nicotine (Nicotine Patch 21 Mg/24 Hr*) 1 patch TRANSDERM DAILY [facility] Last Admin: 07/12/18 08:43 Dose: 1 patch Ondansetron HCl (Zofran Inj*) 4 mg IV Q6H PRN PRN Reason: NAUSEA Last Admin: 07/09/18 22:12 Dose: 4 mg Pantoprazole Sodium (Protonix Tab*) 40 mg PO DAILY [facility] Pharmacy Profile Note (Nicotine Patch Removal Note*) 1 note FOLLOW UP 2100 [facility] Last Admin: 07/12/18 22:40 Dose: 1 note Polyethylene Glycol/Electrolytes (Miralax*) 17 gm PO DAILY PRN PRN Reason: CONSTIPATION Senna (Senokot Tab*) 1 tab PO BEDTIME PRN PRN Reason: if no BM during day Last Admin: 07/12/18 08:51 Dose: 1 tab Sertraline HCl (Zoloft*) 25 mg PO DAILY [facility] Last Admin: 07/12/18 08:51 Dose: 25 mg Sucralfate (Carafate*) 1 gm PO [facility] Thiamine HCl (Vitamin B-1 Tab*) 100 mg PO DAILY [facility] Last Admin: 07/12/18 08:46 Dose: 100 mg Tiotropium [place] (Spiriva Cap.Inh*) 1 cap INH DAILY [facility] Last Admin: 07/13/18 07:40 Dose: 1 cap Vital Signs - 8 hr 07/13/18 07/13/18 07/13/18 00:12 03:19 03:44 Temperature 98.1 F 98.1 F Pulse Rate 110 107 Respiratory 18 18 20 Rate Blood Pressure 132/75 140/83 (mmHg) O2 Sat by Pulse 92 93 Oximetry 07/13/18 07:42 Temperature Pulse Rate 100 Respiratory 14 Rate Blood Pressure (mmHg) O2 Sat by Pulse 92 Oximetry Oxygen Devices in Use Now: Nasal Cannula Appearance: Middle aged male sitting up in bed, NAD Eyes: No Scleral Icterus Ears/Nose/Mouth/Throat: Mucous Membranes Moist Respiratory: Symmetrical Chest Expansion and Respiratory Effort, Clear to Auscultation, - - slightly coarse sounding breath sounds Cardiovascular: NL Sounds; No Murmurs; No JVD, No Edema, - - mildly tachycardic Abdominal: NL Sounds; No Tenderness; No Distention Extremities: No Clubbing, Cyanosis Skin: No Nodules or Sclerosis, - - Continued bright red erythema, warmth and swelling of L elbow, forearm and hand Neurological: Alert and Oriented x 3 Result Diagrams: 07/13/18 06:05 07/13/18 06:05 Microbiology and Other Data: Microbiology 07/09/18 13:00 Legionella Urinary Antigen - Final Urine Negative Legionella Antigen Streptococcus pneumoniae Ag Screen - Final Negative S. pneumo Antigen 07/09/18 14:05 Skin and Soft Tissue MRSA/MSSA (PCR - Final Elbow Left Mrsa Negative S.aureus Positive Gram Stain - Final Assess/Plan/Problems-Billing 67yo M who has a h/o alcohol use disorder, active tobacco use complicated by COPD and anxiety, who is presenting with desire to stop drinking and with chronic cough and left elbow pain. The patient was found with tachycardia, fever, leukocytosis, and left elbow concerning for cellulitis. - Patient Problems (1) Sepsis Current Visit: Yes Status: Acute Comment: The patient was septic on admission secondary to L elbow cellulitis. (2) Cellulitis Current Visit: Yes Status: Acute Code(s): L03.90 - CELLULITIS, UNSPECIFIED SNOMED Code(s): 223134996 Comment: Pt had attempt at I&D in ER per ER provider note of a superficial abscess overlying the elbow. Only a small amount of purulence was identified. Now with progression of the erythema and swelling. Ortho following for concerns of deep tissue infection. Continue cefazolin and clindamycin for MSSA and Strep pyogenes. Continue tylenol and morphine prn. MRI of forearm ordered for today to eval for necrotizing fasciitis but clinically this is unlikely as there has been slight improvment in labs and exam. (3) Alcohol abuse Current Visit: Yes Status: Acute Code(s): F10.10 - ALCOHOL ABUSE, UNCOMPLICATED SNOMED Code(s): 59873584 Comment: Pt has not scored on the WAM protocol since Thursday. Will d/c WAM. Continue folate and thiamine. Continue gabapentin. (4) Anxiety and depression Current Visit: Yes Status: Acute Code(s): F41.9 - ANXIETY DISORDER, UNSPECIFIED; F32.9 - MAJOR DEPRESSIVE DISORDER, SINGLE EPISODE, UNSPECIFIED SNOMED Code(s): 608544578 Comment: Continue sertraline 258mg daily. Can be increased in a few weeks if no improvement in symptoms. (5) COPD (chronic obstructive pulmonary disease) Current Visit: Yes Status: Acute Code(s): J44.9 - CHRONIC OBSTRUCTIVE PULMONARY DISEASE, UNSPECIFIED SNOMED Code(s): 26753679 Comment: Continue spiriva and nebs. No signs of exacerbation. Pt remains on supplemental O2-will see if this can be weaned off. (6) Diabetes mellitus Current Visit: Yes Status: Acute Code(s): E11.9 - TYPE 2 DIABETES MELLITUS WITHOUT COMPLICATIONS SNOMED Code(s): 24674326 Comment: Continue lispro sliding scale. Start metformin on d/c. The patient has carried the dx of DM but has not been on meds at home. (7) Tobacco abuse Current Visit: Yes Status: Acute Code(s): Z72.0 - TOBACCO USE SNOMED Code( s): 562196397 Comment: Continue nicotine replacement therapy. (8) DVT prophylaxis Current Visit: Yes Status: Acute Code(s): Z29.9 - ENCOUNTER FOR PROPHYLACTIC MEASURES, UNSPECIFIED SNOMED Code(s): 925099448 Comment: lovenox (9) Full code status Current Visit: Yes Status: Acute Code(s): Z78.9 - OTHER SPECIFIED HEALTH STATUS SNOMED Code(s): 168693478 Status and Disposition: .
[2018-07-13] MEDS: Ondansetron INJ* 2 MG/ML VIAL IV PRN (08:01)
[2018-07-13] MEDS: Pantoprazole TAB * 40 MG TAB PO SCH (08:01)
[2018-07-13] MEDS: Sertraline* 25 MG TAB PO SCH (08:04)
[2018-07-13] MEDS: Folic Acid TAB* 1 MG PO SCH (08:04)
[2018-07-13] MEDS: Gabapentin CAP(*) 300 MG PO SCH ×3 (08:05→21:30)
[2018-07-13] MEDS: Thiamine TAB* 100 MG TAB PO SCH (08:06)
[2018-07-13] MEDS: Multivitamins/Minerals TAB PO SCH (08:06)
[2018-07-13] MEDS: Nicotine PATCH 21 MG/24 HR* PATCH TRANSDERM SCH (08:06)
[2018-07-13] MEDS ORDERED: Potassium Chlor TAB* 20 MEQ TAB.ER PO ONE (08:10)
[2018-07-13] MEDS: Metoprolol Succinate XL TAB* 50 MG PO SCH ×2 (08:23→21:30)
[2018-07-13] MEDS: Insulin LISPRO* 1 UNITS UNIT SUBCUT SCH ×4 (08:25→21:30)
--- NOTE | 2018-07-13 09:49 | PN ---
Progress Note - Progress Note Date of Service: 07/13/18 SOAP: Subjective: CC: Left arm infection HPI: Mr. Russ is a 67 yo male with PMH significant for alcohol use disorder, COPD, tobacco abuse, and anxiety who presented to the ED requesting alcohol detox. While in the ED he was found to have erythema to the left elbow and underwent an ultrasound guided I+D. Denies fever, chills, shortness of breath, chest discomfort, N/V/D. He feels that his left arm is slowly improving, he is trying to keep it elevated on a pillow. He reports that the edema and redness have decreased from yesterday. Objective: Vital Signs - 8 hr 07/13/18 07/13/18 07/13/18 03:19 03:44 07:32 Temperature 98.1 F 97.4 F Pulse Rate 107 103 Respiratory 18 20 20 Rate Blood Pressure 140/83 144/79 (mmHg) O2 Sat by Pulse 93 93 Oximetry 07/13/18 07/13/18 07:42 08:05 Temperature Pulse Rate 100 Respiratory 14 20 Rate Blood Pressure (mmHg) O2 Sat by Pulse 92 Oximetry Physical Exam: General: NAD, laying in bed Neurological: Alert and Oriented x3 HEENT: No thrush, Moist MM Cardiovascular: Heart rate regular Respiratory: Lung sounds clear Abdominal: Bowel sounds present; ABD soft, non tender, non distended Extremities: Left upper extremity with 1+ pitting edema, improving. Full ROM of the left elbow and shoulder. Slightly limited active ROM to the left wrist due to edema, full PROM. Skin: Erythema to the left upper arm resolving, improving erythema to lower left arm. There is a small scab to the left elbow. Laboratory Last Values WBC 14.9 10^3/uL (3.5-10.8) H 07/13/18 06:05 RBC 4.64 10^6 /uL (4.18-5.48) 07/13/18 06:05 Hgb 14.6 g/dL (14.0-18.0) 07/13/18 06:05 Hct 44 % (42-52) 07/13/18 06:05 MCV 95 fL (80-94) H 07/13/18 06:05 MCH 32 pg (27-31) H 07/13/18 06:05 MCHC 33 g/dL (31-36) 07/13/18 06:05 RDW 16 % (10.5-15) H 07/13/18 06:05 Plt Count 194 10^3/uL (150-450) 07/13/18 06:05 MPV 7.0 fL (7.4-10.4) L 07/13/18 06:05 Neut % (Auto) 90.0 % 07/12/18 05:23 Lymph % (Auto) 4.5 % 07/12/18 05:23 [place] % (Auto) 2.9 % 07/12/18 05:23 Eos % (Auto) 2.2 % 07/12/18 05:23 Baso % (Auto) 0.4 % 07/12/18 05:23 Absolute Neuts (auto) 13.7 10^3/ul (1.5-7.7) H 07/12/18 05:23 Absolute Lymphs (auto) 0.7 10^3/ul (1.0-4.8) L 07/12/18 05:23 Absolute Monos (auto) 0.4 10^3/ul (0-0.8) 07/12/18 05:23 Absolute Eos (auto) 0.3 10^3/ul (0-0.6) 07/12/18 05:23 Absolute Basos (auto) 0.1 10^3/ul (0-0.2) 07/12/18 05:23 Absolute Nucleated RBC 0.0 10^3/ul 07/12/18 05:23 Neutrophils % 87.0 % 07/09/18 11:27 Lymphocytes % 0.0 % 07/09/18 11:27 Monocytes % 13.0 % 07/09/18 11:27 Eosinophils % 0.0 % 07/09/18 11:27 Basophils % 0.0 % 07/09/18 11:27 Nucleated RBC % 0.0 07/12/18 05:23 Abs Neuts (Manual) 21.1 10^3/ul (1.5-7.7) H 07/09/18 11:27 Abs Lymphs (Manual) 0.0 10^3/ul (1.0-4.8) L 07/09/18 11:27 Abs Monocytes (Manual) 3.1 10^3/ul (0-0.8) H 07/09/18 11:27 Absolute Eos (Manual) 0.0 10^3/ul (0-0.6) 07/09/18 11:27 Abs Basophils (Manual) 0.0 10^3/ul (0-0.2) 07/09/18 11:27 Normal RBC Morphology Normal (Normal) 07/09/18 11:27 ESR 27 mm/Hr (0-19) H 07/12/18 05:23 INR (Anticoag Therapy) 1.17 (0.82-1.09) H 07/09/18 11:27 APTT 32.9 seconds (26.0-36.3) 07/09/18 11:27 ABG pH 7.46 (7.35-7.45) H 07/09/18 11:12 ABG pCO2 32 mmHg (35-45) L 07/09/18 11:12 ABG pO2 78 mmHg (80-100) L 07/09/18 11:12 ABG HCO3 24.6 mmol/L (19-31) 07/09/18 11:12 ABG O2 Saturation 98.3 % (94.0-98.0) H 07/09/18 11:12 ABG Base Excess -0.3 mmol/L (-2.0-2.0) 07/09/18 11:12 Sodium 134 mmol/L (135-145) L 07/13/18 06:05 Potassium 3.4 mmol/L (3.5-5.0) L 07/13/18 06:05 Chloride 97 mmol/L (101-111) L 07/13/18 06:05 Carbon Dioxide 28 mmol/L (22-32) 07/13/18 06:05 Anion Gap 9 mmol/L (2-11) 07/13/18 06:05 BUN 16 mg/dL (6-24) 07/13/18 06:05 Creatinine 0.68 mg/dL (0.67-1.17) 07/13/18 06:05 Est GFR ( Amer) 141.6 (>60) 07/13/18 06:05 Est GFR (Non-Af Amer) 117.0 (>60) 07/13/18 06:05 BUN/Creatinine Ratio 23.5 (8-20) H 07/13/18 06:05 Glucose 125 mg/dL (70-100) H 07/13/18 06:05 POC Glucose (mg/dL) 118 mg/dL (70-100) H 07/13/18 07:47 Hemoglobin A1c 7.4 % (4.0-5.6) H 07/10/18 06:01 Lactic Acid 2.3 mmol/L (0.5-2.0) H* 07/09/18 17:15 Calcium 8.2 mg/dL (8.6-10.3) L 07/13/18 06:05 Magnesium 2.2 mg/dL (1.9-2.7) 07/13/18 06:05 Total Bilirubin 0.40 mg/dL (0.2-1.0) 07/12/18 05:23 AST 20 U/L (13-39) 07/12/18 05:23 ALT 17 U/L (7-52) 07/12/18 05:23 Alkaline Phosphatase 78 U/L (34-104) 07/12/18 05:23 Ammonia 49 mcmol/L (16-53) 07/09/18 17:15 Total Creatine Kinase 29 U/L (10-223) 07/12/18 05:23 CK-MB (CK-2) 4.8 ng/mL (0.6-6.3) 07/09/18 11:27 Troponin I 0.21 ng/mL (<0.04) H* 07/10/18 06:01 C-Reactive Protein 218.33 mg/L (<8.01) H 07/12/18 05:23 B-Natriuretic Peptide 52 pg/mL (<=100) 07/09/18 11:27 Total Protein 5.7 g/dL (6.4-8.9) L 07/12/18 05:23 Albumin 3.1 g/dL (3.2-5.2) L 07/12/18 05:23 Globulin 2.6 g/dL (2-4) 07/12/18 05:23 Albumin/Globulin Ratio 1.2 (1-3) 07/12/18 05:23 Triglycerides 95 mg/dL 07/10/18 06:01 Cholesterol 131 mg/dL 07/10/18 06:01 LDL Cholesterol 74 mg/dL 07/10/18 06:01 HDL Cholesterol 37.8 mg/dL 07/10/18 06:01 TSH 1.83 mcIU/mL (0.34-5.60) 07/11/18 06:17 Urine Color Yellow 07/09/18 13:11 Urine Appearance Clear 07/09/18 13:11 Urine pH 5.0 (5-9) 07/09/18 13:11 Ur Specific [place] 1.005 (1.010-1.030) L 07/09/18 13:11 Urine Protein Negative (Negative) 07/09/18 13:11 Urine Ketones Trace (Negative) A 07/09/18 13:11 Urine Blood 1+ (Negative) A 07/09/18 13:11 Urine Nitrate Negative (Negative) 07/09/18 13:11 Urine Bilirubin Negative (Negative) 07/09/18 13:11 Urine Urobilinogen Negative (Negative) 07/09/18 13:11 Ur Leukocyte Esterase Negative (Negative) 07/09/18 13:11 Urine WBC (Auto) Absent (Absent) 07/09/18 13:11 Urine RBC (Auto) Trace(0-2/hpf) (Absent) 07/09/18 13:11 Ur Squamous Epith Cells Present (Absent) A 07/09/18 13:11 Urine Bacteria Absent (Absent) 07/09/18 13:11 Urine Glucose 2+(150 mg/dl) (Negative) A 07/09/18 13:11 Microbiology 07/09/18 14:05 Skin and Soft Tissue MRSA/MSSA (PCR - Final Elbow Left Mrsa Negative S.aureus Positive Gram Stain - Final Wound Culture - Preliminary Strep Pyogenes (Grp A) 07/09/18 11:35 Aerobic Blood Culture - Preliminary Blood Venous No Growth Day 3 Anaerobic Blood Culture - Preliminary No Growth Day 3 07/09/18 11:35 Aerobic Blood Culture - Preliminary Blood Venous No Growth Day 3 Anaerobic Blood Culture - Preliminary No Growth Day 3 07/09/18 13:00 Legionella Urinary Antigen - Final Urine Negative Legionella Antigen Streptococcus pneumoniae Ag Screen - Final Negative S. pneumo Antigen Assessment: 1. Left arm cellulitis with associated olecranon bursitis. Left elbow culture with MSSA positive PCR, and preliminary results with Strep Pyogenes (Group A). Blood cultures no growth, day 3. Afebrile and leukocytosis improving. CRP is trending down after peaking at 242. 2. Alcohol use disorder. 3. DM2. 4. PCN allergy, caused a rash in adulthood Plan: Continue cefazolin and clindamycin until final cultures are back.
[2018-07-13 10:13] LABS: C Reactive Protein 228.81 mg/L (<8.01)
--- NOTE | 2018-07-13 10:17 | PN ---
Progress Note - Progress Note Date of Service: 07/13/18 SOAP: Subjective: [Mr. Russ feels his left arm infection has significantly improved from yesterday. He reports a decrease in pain, redness and swelling. Denies feeling of fever or chills. Objective: []General: resting comfortably in bed, NAD Left upper extremity: Erythema receding from demarcated lines proximally, now spanning distal upper arm to MCPs, both erythema and edema reduced in severity from yesterday. Mild tenderness to palpation of hand and forearm, certainly decreased from yesterday with no induration or fluctuance. No pain with AROM of digits, wrist, elbow or shoulder. NVID. Assessment: []HD 4 LUE cellulitis, Group A Strep, with origin of olecranon bursa-area laceration/abrasion Plan: - Continue Ancef/Clinda IV abx or make changes per ID service - Continue to monitor body temperature as well as CRP & WBC & neutrophil trends to confirm our slow, successful (to this point) treatment of this very aggressive Group A strep cellulitis. - + appreciable clinical improvement. CRP increased from 218 to 228 today, continue to monitor. WBC trending down, afebrile. - MRI forearm 07/13/18 - To reduce swelling left upper extremity elevation on pillows and ice packs. Vital Signs Temp 97.4 F 07/13/18 07:32 Pulse 100 07/13/18 07:42 Resp 20 07/13/18 08:05 BP 144/79 07/13/18 07:32 Pulse Ox 92 07/13/18 07:42 Intake & Output 07/12/18 07/13/18 07/13/18 18:59 06:59 18:59 Intake Total 560 50 120 Output Total 475 Balance 560 -425 120 Weight 203 lb Intake: IV Fluids 50 ABX 50 IVPB 100 ABX 100 Oral 460 0 120 Output: Urine 475 Other: Estimated Void Large # Bowel Movements 0 # Voids 3 1 Laboratory Last Values WBC 14.9 10^3/uL (3.5-10.8) H 07/13/18 06:05 RBC 4.64 10^6 /uL (4.18-5.48) 07/13/18 06:05 Hgb 14.6 g/dL (14.0-18.0) 07/13/18 06:05 Hct 44 % (42-52) 07/13/18 06:05 MCV 95 fL (80-94) H 07/13/18 06:05 MCH 32 pg (27-31) H 07/13/18 06:05 MCHC 33 g/dL (31-36) 07/13/18 06:05 RDW 16 % (10.5-15) H 07/13/18 06:05 Plt Count 194 10^3/uL (150-450) 07/13/18 06:05 MPV 7.0 fL (7.4-10.4) L 07/13/18 06:05 Neut % (Auto) 90.0 % 07/12/18 05:23 Lymph % (Auto) 4.5 % 07/12/18 05:23 [place] % (Auto) 2.9 % 07/12/18 05:23 Eos % (Auto) 2.2 % 07/12/18 05:23 Baso % (Auto) 0.4 % 07/12/18 05:23 Absolute Neuts (auto) 13.7 10^3/ul (1.5-7.7) H 07/12/18 05:23 Absolute Lymphs (auto) 0.7 10^3/ul (1.0-4.8) L 07/12/18 05:23 Absolute Monos (auto) 0.4 10^3/ul (0-0.8) 07/12/18 05:23 Absolute Eos (auto) 0.3 10^3/ul (0-0.6) 07/12/18 05:23 Absolute Basos (auto) 0.1 10^3/ul (0-0.2) 07/12/18 05:23 Absolute Nucleated RBC 0.0 10^3/ul 07/12/18 05:23 Neutrophils % 87.0 % 07/09/18 11:27 Lymphocytes % 0.0 % 07/09/18 11:27 Monocytes % 13.0 % 07/09/18 11:27 Eosinophils % 0.0 % 07/09/18 11:27 Basophils % 0.0 % 07/09/18 11:27 Nucleated RBC % 0.0 07/12/18 05:23 Abs Neuts (Manual) 21.1 10^3/ul (1.5-7.7) H 07/09/18 11:27 Abs Lymphs (Manual) 0.0 10^3/ul (1.0-4.8) L 07/09/18 11:27 Abs Monocytes (Manual) 3.1 10^3/ul (0-0.8) H 07/09/18 11:27 Absolute Eos (Manual) 0.0 10^3/ul (0-0.6) 07/09/18 11:27 Abs Basophils (Manual) 0.0 10^3/ul (0-0.2) 07/09/18 11:27 Normal RBC Morphology Normal (Normal) 07/09/18 11:27 ESR 27 mm/Hr (0-19) H 07/12/18 05:23 INR (Anticoag Therapy) 1.17 (0.82-1.09) H 07/09/18 11:27 APTT 32.9 seconds (26.0-36.3) 07/09/18 11:27 ABG pH 7.46 (7.35-7.45) H 07/09/18 11:12 ABG pCO2 32 mmHg (35-45) L 07/09/18 11:12 ABG pO2 78 mmHg (80-100) L 07/09/18 11:12 ABG HCO3 24.6 mmol/L (19-31) 07/09/18 11:12 ABG O2 Saturation 98.3 % (94.0-98.0) H 07/09/18 11:12 ABG Base Excess -0.3 mmol/L (-2.0-2.0) 07/09/18 11:12 Sodium 134 mmol/L (135-145) L 07/13/18 06:05 Potassium 3.4 mmol/L (3.5-5.0) L 07/13/18 06:05 Chloride 97 mmol/L (101-111) L 07/13/18 06:05 Carbon Dioxide 28 mmol/L (22-32) 07/13/18 06:05 Anion Gap 9 mmol/L (2-11) 07/13/18 06:05 BUN 16 mg/dL (6-24) 07/13/18 06:05 Creatinine 0.68 mg/dL (0.67-1.17) 07/13/18 06:05 Est GFR ( Amer) 141.6 (>60) 07/13/18 06:05 Est GFR (Non-Af Amer) 117.0 (>60) 07/13/18 06:05 BUN/Creatinine Ratio 23.5 (8-20) H 07/13/18 06:05 Glucose 125 mg/dL (70-100) H 07/13/18 06:05 POC Glucose (mg/dL) 118 mg/dL (70-100) H 07/13/18 07:47 Hemoglobin A1c 7.4 % (4.0-5.6) H 07/10/18 06:01 Lactic Acid 2.3 mmol/L (0.5-2.0) H* 07/09/18 17:15 Calcium 8.2 mg/dL (8.6-10.3) L 07/13/18 06:05 Magnesium 2.2 mg/dL (1.9-2.7) 07/13/18 06:05 Total Bilirubin 0.40 mg/dL (0.2-1.0) 07/12/18 05:23 AST 20 U/L (13-39) 07/12/18 05:23 ALT 17 U/L (7-52) 07/12/18 05:23 Alkaline Phosphatase 78 U/L (34-104) 07/12/18 05:23 Ammonia 49 mcmol/L (16-53) 07/09/18 17:15 Total Creatine Kinase 29 U/L (10-223) 07/12/18 05:23 CK-MB (CK-2) 4.8 ng/mL (0.6-6.3) 07/09/18 11:27 Troponin I 0.21 ng/mL (<0.04) H* 07/10/18 06:01 C-Reactive Protein 228.81 mg/L (<8.01) H 07/13/18 06:05 B-Natriuretic Peptide 52 pg/mL (<=100) 07/09/18 11:27 Total Protein 5.7 g/dL (6.4-8.9) L 07/12/18 05:23 Albumin 3.1 g/dL (3.2-5.2) L 07/12/18 05:23 Globulin 2.6 g/dL (2-4) 07/12/18 05:23 Albumin/Globulin Ratio 1.2 (1-3) 07/12/18 05:23 Triglycerides 95 mg/dL 07/10/18 06:01 Cholesterol 131 mg/dL 07/10/18 06:01 LDL Cholesterol 74 mg/dL 07/10/18 06:01 HDL Cholesterol 37.8 mg/dL 07/10/18 06:01 TSH 1.83 mcIU/mL (0.34-5.60) 07/11/18 06:17 Urine Color Yellow 07/09/18 13:11 Urine Appearance Clear 07/09/18 13:11 Urine pH 5.0 (5-9) 07/09/18 13:11 Ur Specific [place] 1.005 (1.010-1.030) L 07/09/18 13:11 Urine Protein Negative (Negative) 07/09/18 13:11 Urine Ketones Trace (Negative) A 07/09/18 13:11 Urine Blood 1+ (Negative) A 07/09/18 13:11 Urine Nitrate Negative (Negative) 07/09/18 13:11 Urine Bilirubin Negative (Negative) 07/09/18 13:11 Urine Urobilinogen Negative (Negative) 07/09/18 13:11 Ur Leukocyte Esterase Negative (Negative) 07/09/18 13:11 Urine WBC (Auto) Absent (Absent) 07/09/18 13:11 Urine RBC (Auto) Trace(0-2/hpf) (Absent) 07/09/18 13:11 Ur Squamous Epith Cells Present (Absent) A 07/09/18 13:11 Urine Bacteria Absent (Absent) 07/09/18 13:11 Urine Glucose 2+(150 mg/dl) (Negative) A 07/09/18 13:11
[2018-07-13] MEDS: Sucralfate TAB* 1 GM PO SCH ×2 (12:06→17:22)
[2018-07-13] MEDS: Enoxaparin(*) 40 MG/0.4 ML SYR SUBCUT SCH (14:08)
[2018-07-13] MEDS: Acetaminophen TAB* 325 MG PO PRN (14:14)
[2018-07-13] MEDS: Morphine 4 MG/ML VIAL (1 ml) 4 MG/ML VIAL IV PRN (21:29)
[2018-07-13] MEDS: Nicotine Patch Removal NOTE FOLLOW UP SCH (21:31)
[2018-07-14] MEDS: ceFAZolin* 2 GM* Q8H (Duplex) IVPB SCH ×3 (02:21→17:56)
[2018-07-14] MEDS: Morphine 4 MG/ML VIAL (1 ml) 4 MG/ML VIAL IV PRN ×2 (02:34→22:02)
[2018-07-14] MEDS: Clindamycin 600 MG IVPREMIX(* 600 MG/50 ML SDV IV SCH ×3 (03:54→20:55)
[2018-07-14] MEDS: Sucralfate TAB* 1 GM PO SCH ×3 (07:41→17:02)
--- NOTE | 2018-07-14 08:14 | PN ---
Progress Note - Progress Note Date of Service: 07/14/18 SOAP: Subjective: Decreased pain per patient. Patient seems to still be getting one dose of Morphine 4mg each day in the evening/night. Objective: LUE: - no axillary tenderness - reduced soft tissue swelling, most markedly about the fingers, hand, wrist, and proximal upper arm - still severe soft tissue swelling about elbow with significant erythema - PROM 0-140 elbow is pain-free except at terminal flexion - Mild only tenderness about the upper extremity, even where most swollen and erythematous Selected Entries 07/13/18 07/13/18 07/13/18 12:17 15:17 19:30 Temperature 98.0 F 98.2 F 97.9 F Pulse Rate Respiratory Rate Blood Pressure (mmHg) O2 Sat by Pulse Oximetry 07/13/18 07/14/18 23:25 02:35 Temperature 98.1 F 97.6 F Pulse Rate 95 Respiratory 20 Rate Blood Pressure 143/77 (mmHg) O2 Sat by Pulse 91 Oximetry Laboratory Tests 07/09/18 07/11/18 07/12/18 11:27 06:17 05:23 C-Reactive Protein 49.89 H 242.34 H 218.33 H 07/13/18 07/14/18 06:05 06:43 C-Reactive Protein 228.81 H 149.53 H MRI forearm yesterday: Edema of the subQ layer, but not of muscle or fascia, consistent with cellulitis and not fasciitis. Assessment: HD 6 left upper extremity cellulitis that started with a laceration or abrasion overlying olecranon bursa Group A Strep Plan: - Patient has clearly "rounded a corner" with significant reduction in soft tissue swelling and decrease of CRP from 228 to 149 along with his concomitant drop in WBC and continued afebrile status. We can be confident that the IV antibiotics are working. There is no CBC pending for today, but I will add one for tomorrow morning. - Continue IV Ancef and Clinda - Pain control prn. Recommend change from IV to PO pain meds to make transition to outpatient easier - Recommend continued inpatient status until the swelling and erythema improve a bit more. He still is significantly swollen and red. - Defer to ID service on length of IV abx and any possible need for PICC line. I suspect that once his exam improves enough for discharge from hospital, he may be able to be converted to PO Keflex and Clinda, but I defer to ID on this. - MRI forearm is just 1 additional confirmation of our diagnosis in this unusually aggressive case of cellulitis. No evidence of fasciitis. No abscess.
[2018-07-14] MEDS: Insulin LISPRO* 1 UNITS UNIT SUBCUT SCH ×4 (08:28→20:55)
--- NOTE | 2018-07-14 08:46 | PN ---
Progress Note - Progress Note Date of Service: 07/14/18 SOAP: Subjective: CC: Left arm infection HPI: Mr. Russ is a 67 yo male with PMH significant for alcohol use disorder, COPD, tobacco abuse, and anxiety who presented to the ED requesting alcohol detox. While in the ED he was found to have erythema to the left elbow and underwent an ultrasound guided I+D. Denies fever, chills, shortness of breath, chest discomfort, N/V/D. He feels that his left arm is slowly improving, he is trying to keep it elevated on a pillow. He reports that the edema and redness have continue to decrease and improving. He moved his bowels yesterday. Objective: Vital Signs - 8 hr 07/14/18 07/14/18 07/14/18 02:34 02:35 03:54 Temperature 97.6 F Pulse Rate 95 Respiratory 18 20 18 Rate Blood Pressure 143/77 (mmHg) O2 Sat by Pulse 91 Oximetry Physical Exam: General: NAD, sitting up in bed Neurological: Alert and Oriented x 4 HEENT: No thrush Cardiovascular: Heart rate regular Respiratory: Lung sounds clear Abdominal: Bowel sounds present; ABD soft, non tender and non distended Musculoskeletal: Full ROM of the left fingers, wrist, elbow and shoulder Skin: Erythema to the left arm (from the fingers to the posterior upper arm), the skin is warm to touch. There is a scab to the left elbow, no drainage. Laboratory Results - last 24 hr 07/13/18 07/13/18 07/13/18 06:05 12:03 17:25 Sodium 134 L Potassium 3.4 L Chloride 97 L Carbon Dioxide 28 Anion Gap 9 BUN 16 Creatinine 0.68 Est GFR ( Amer) 141.6 Est GFR (Non-Af Amer) 117.0 BUN/Creatinine Ratio 23.5 H Glucose 125 H POC Glucose (mg/dL) 128 H 179 H Calcium 8.2 L Magnesium 2.2 C-Reactive Protein 228.81 H 07/13/18 07/14/18 07/14/18 21:16 06:43 07:43 POC Glucose (mg/dL) 154 H 127 H C-Reactive Protein 149.53 H Microbiology 07/09/18 11:35 Aerobic Blood Culture - Preliminary Blood Venous No Growth Day 4 Anaerobic Blood Culture - Preliminary No Growth Day 4 07/09/18 11:35 Aerobic Blood Culture - Preliminary Blood Venous No Growth Day 4 Anaerobic Blood Culture - Preliminary No Growth Day 4 07/09/18 14:05 Skin and Soft Tissue MRSA/MSSA (PCR - Final Elbow Left Mrsa Negative S.aureus Positive Gram Stain - Final Wound Culture - Final Strep Pyogenes (Grp A) Normal Jacy 07/09/18 13:00 Legionella Urinary Antigen - Final Urine Negative Legionella Antigen Streptococcus pneumoniae Ag Screen - Final Negative S. pneumo Antigen Assessment: 1. Left arm cellulitis with associated olecranon bursitis. Left elbow culture with MSSA positive PCR, and final results with Strep Pyogenes (Group A). Blood cultures no growth, day 3. Afebrile and leukocytosis improving. CRP is trending down after peaking at 242. 2. Alcohol use disorder. 3. DM2. 4. PCN allergy, caused a rash in adulthood Plan: Continue IV cefazolin and clindamycin for now.
[2018-07-14] MEDS: Tiotropium CAP.INH* CAP.INH/18 MCG (USE ORDER SET !) INH SCH (09:22)
[2018-07-14] MEDS: Metoprolol Succinate XL TAB* 50 MG PO SCH ×2 (10:24→20:55)
[2018-07-14] MEDS: Gabapentin CAP(*) 300 MG PO SCH ×3 (10:24→20:55)
[2018-07-14] MEDS: Sertraline* 25 MG TAB PO SCH (10:24)
[2018-07-14] MEDS: Folic Acid TAB* 1 MG PO SCH (10:24)
[2018-07-14] MEDS: Multivitamins/Minerals TAB PO SCH (10:25)
[2018-07-14] MEDS: Thiamine TAB* 100 MG TAB PO SCH (10:25)
[2018-07-14] MEDS: Pantoprazole TAB * 40 MG TAB PO SCH (10:25)
[2018-07-14] MEDS: Nicotine PATCH 21 MG/24 HR* PATCH TRANSDERM SCH (10:28)
--- NOTE | 2018-07-14 12:24 | PN ---
Subjective Date of Service: 07/14/18 Interval History: Pt is feeling well. He has noticed significant change in his L forearm/hand. There is reduced erythema and swelling. He has minimal pain. Objective Active Medications: Acetaminophen (Tylenol Tab*) 975 mg PO Q8H PRN PRN Reason: Fever or Mild Pain Last Admin: 07/13/18 14:14 Dose: 975 mg Al Hydrox/Mg Hydrox/Simethicone (Maalox Plus*) 30 ml PO Q6H PRN PRN Reason: INDIGESTION Last Admin: 07/12/18 20:18 Dose: 30 ml Albuterol (Ventolin 2.5 Mg/3 Ml Neb.Ruth*) 2.5 mg INH [id number] AWAKE PRN PRN Reason: sob/wheezing Device (Tiotropium Inhaler Device*) 1 each INH .USE w/ SPIRIVA CAPS [facility] Dextrose (D50w Syringe 50 Ml*) 12.5 gm IV PUSH .FOR FS < 60 - SS PRN PRN Reason: FS < 60 Enoxaparin Sodium (Lovenox(*)) 40 mg SUBCUT Q24H [facility] Last Admin: 07/13/18 14:08 Dose: 40 mg Folic Acid (Folvite Tab*) 1 mg PO DAILY [facility] Last Admin: 07/14/18 10:24 Dose: 1 mg Gabapentin (Neurontin Cap(*)) 300 mg PO TID [facility] Last Admin: 07/14/18 10:24 Dose: 300 mg Cefazolin Sodium/Dextrose (Kefzol 2 Gm Premix In Ors(*)) 2 gm in 50 mls @ 100 mls/hr IVPB Q8H [facility] Last Admin: 07/14/18 10:26 Dose: 100 mls/hr Clindamycin HCl/Dextrose (Cleocin 600 Mg Ivpremix(*) Sdv) 600 mg in 50 mls @ 100 mls/hr IV Q8H [facility] Last Admin: 07/14/18 03:54 Dose: 100 mls/hr Insulin Human Lispro (Humalog*) 0 units SUBCUT ACHS [facility]; Protocol Last Admin: 07/14/18 08:28 Dose: Not Given Metoprolol Succinate (Toprol Xl Tab*) 50 mg PO BID [facility] Last Admin: 07/14/18 10:24 Dose: 50 mg Morphine Sulfate (Morphine 4 Mg/Ml Vial (1 Ml)) 4 mg IV Q6H PRN PRN Reason: Moderate to Severe pain Last Admin: 07/14/18 02:34 Dose: 4 mg Multivitamins/Minerals (Theragran/Minerals Tab*) 1 tab PO DAILY [facility] Last Admin: 07/14/18 10:25 Dose: 1 tab Nicotine (Nicotine Patch 21 Mg/24 Hr*) 1 patch TRANSDERM DAILY [facility] Last Admin: 07/14/18 10:28 Dose: Not Given Ondansetron HCl (Zofran Inj*) 4 mg IV Q6H PRN PRN Reason: NAUSEA Last Admin: 07/13/18 08:01 Dose: 4 mg Pantoprazole Sodium (Protonix Tab*) 40 mg PO DAILY [facility] Last Admin: 07/14/18 10:25 Dose: 40 mg Pharmacy Profile Note (Nicotine Patch Removal Note*) 1 note FOLLOW UP 2100 [facility] Last Admin: 07/13/18 21:31 Dose: 1 note Polyethylene Glycol/Electrolytes (Miralax*) 17 gm PO DAILY PRN PRN Reason: CONSTIPATION Senna (Senokot Tab*) 1 tab PO BEDTIME PRN PRN Reason: if no BM during day Last Admin: 07/12/18 08:51 Dose: 1 tab Sertraline HCl (Zoloft*) 25 mg PO DAILY [facility] Last Admin: 07/14/18 10:24 Dose: 25 mg Sucralfate (Carafate*) 1 gm PO AC [facility] Last Admin: 07/14/18 07:41 Dose: 1 gm Thiamine HCl (Vitamin B-1 Tab*) 100 mg PO DAILY [facility] Last Admin: 07/14/18 10:25 Dose: 100 mg Tiotropium [place] (Spiriva Cap.Inh*) 1 cap INH DAILY [facility] Last Admin: 07/14/18 09:22 Dose: 1 cap Vital Signs - 8 hr 07/14/18 07/14/18 09:22 10:24 Pulse Rate 92 Respiratory 18 16 Rate O2 Sat by Pulse 92 Oximetry Oxygen Devices in Use Now: None Appearance: Middle aged male sitting up in bed, NAD Eyes: No Scleral Icterus Ears/Nose/Mouth/Throat: Mucous Membranes Moist Respiratory: Symmetrical Chest Expansion and Respiratory Effort, Clear to Auscultation Cardiovascular: NL Sounds; No Murmurs; No JVD, RRR, No Edema Abdominal: NL Sounds; No Tenderness; No Distention Extremities: No Clubbing, Cyanosis Skin: - - Much less edema of the L hand and distal forearm. Still marked swelling about the elbow. Continued erythema but improved from yesterday. Scab overlying elbow from I&D site. Neurological: Alert and Oriented x 3 Result Diagrams: 07/13/18 06:05 07/13/18 06:05 Microbiology and Other Data: Microbiology 07/09/18 13:00 Legionella Urinary Antigen - Final Urine Negative Legionella Antigen Streptococcus pneumoniae Ag Screen - Final Negative S. pneumo Antigen 07/09/18 14:05 Skin and Soft Tissue MRSA/MSSA (PCR - Final Elbow Left Mrsa Negative S.aureus Positive Gram Stain - Final Assess/Plan/Problems-Billing 67yo M who has a h/o alcohol use disorder, active tobacco use complicated by COPD and anxiety, who is presenting with desire to stop drinking and with chronic cough and left elbow pain. The patient was found with tachycardia, fever, leukocytosis, and left elbow concerning for cellulitis. - Patient Problems (1) Sepsis Current Visit: Yes Status: Acute Comment: The patient was septic on admission secondary to L elbow cellulitis. (2) Cellulitis Current Visit: Yes Status: Acute Code(s): L03.90 - CELLULITIS, UNSPECIFIED SNOMED Code(s): 681107178 Comment: Pt had attempt at I&D in ER per ER provider note of a superficial abscess/olecranon bursitis overlying the elbow. Only a small amount of purulence was identified. Pt with strep pyogenes and MSSA. Continue cefazolin and clindamycin for now- can likely switch to keflex and clinda orally in the near future. Add prn norco for pain. Likely home in the next 24-48hr. (3) Alcohol abuse Current Visit: Yes Status: Acute Code(s): F10.10 - ALCOHOL ABUSE, UNCOMPLICATED SNOMED Code(s): 96575936 Comment: WAM d/jason. Continue folate and thiamine. Continue gabapentin. Pt states he is going to stop drinking moving forward. (4) Anxiety and depression Current Visit: Yes Status: Acute Code(s): F41.9 - ANXIETY DISORDER, UNSPECIFIED; F32.9 - MAJOR DEPRESSIVE DISORDER, SINGLE EPISODE, UNSPECIFIED SNOMED Code(s): 527449121 Comment: Continue sertraline 25mg daily. Can be increased in a few weeks if no improvement in symptoms. (5) COPD (chronic obstructive pulmonary disease) Current Visit: Yes Status: Acute Code(s): J44.9 - CHRONIC OBSTRUCTIVE PULMONARY DISEASE, UNSPECIFIED SNOMED Code(s): 33387808 Comment: Continue spiriva and nebs. No signs of exacerbation. O2 has been weaned off. (6) Diabetes mellitus Current Visit: Yes Status: Acute Code(s): E11.9 - TYPE 2 DIABETES MELLITUS WITHOUT COMPLICATIONS SNOMED Code(s): 48149148 Comment: Start metformin now. (7) Tobacco abuse Current Visit: Yes Status: Acute Code(s): Z72.0 - TOBACCO USE SNOMED Code( s): 910897140 Comment: Continue nicotine replacement therapy. (8) DVT prophylaxis Current Visit: Yes Status: Acute Code(s): Z29.9 - ENCOUNTER FOR PROPHYLACTIC MEASURES, UNSPECIFIED SNOMED Code(s): 689169845 Comment: lovenox (9) Full code status Current Visit: Yes Status: Acute Code(s): Z78.9 - OTHER SPECIFIED HEALTH STATUS SNOMED Code(s): 522612656 Status and Disposition: .
[2018-07-14] MEDS: Enoxaparin(*) 40 MG/0.4 ML SYR SUBCUT SCH (12:58)
[2018-07-14] MEDS: metFORMIN* 500 MG TAB PO SCH (17:02)
[2018-07-14] MEDS: Nicotine Patch Removal NOTE FOLLOW UP SCH (21:02)
[2018-07-14] MEDS: Ondansetron INJ* 2 MG/ML VIAL IV PRN (22:02)
[2018-07-15] MEDS: ceFAZolin* 2 GM* Q8H (Duplex) IVPB SCH ×3 (02:20→18:06)
[2018-07-15] MEDS: Clindamycin 600 MG IVPREMIX(* 600 MG/50 ML SDV IV SCH ×3 (04:29→20:41)
[2018-07-15] MEDS: HYDROcodone/ACETAMIN 5-325 MG* 1 TAB PO PRN ×3 (04:33→23:23)
[2018-07-15 07:20] LABS: ABS Basophils 0.1 10^3/ul (0-0.2); ABS Eosinophils 0.3 10^3/ul (0-0.6); ABS Lymphocytes 1.6 10^3/ul (1.0-4.8); ABS Neutrophils 6.4 10^3/ul (1.5-7.7); Eosinophil % 3.5 %; Hematocrit 43 % (42-52); Hemoglobin 14.6 g/dL (14.0-18.0); Lymphocyte % 16.7 %; Mean Corpuscular HGB Conc 34 g/dL (31-36); Mean Corpuscular Hemoglobin 32 pg (27-31); Mean Corpuscular Volume 95 fL (80-94); Nucleated Red Blood Cells % 0.1; Platelet Count 211 10^3/uL (150-450); Red Blood Count 4.59 10^6 /uL (4.18-5.48); Red Cell Distribution Width 16 % (10.5-15); White Blood Count 9.3 10^3/uL (3.5-10.8)
[2018-07-15] MEDS: Insulin LISPRO* 1 UNITS UNIT SUBCUT SCH ×4 (07:45→20:41)
[2018-07-15] MEDS: Tiotropium CAP.INH* CAP.INH/18 MCG (USE ORDER SET !) INH SCH (09:17)
[2018-07-15] MEDS: metFORMIN* 500 MG TAB PO SCH ×2 (09:39→16:20)
[2018-07-15] MEDS: Metoprolol Succinate XL TAB* 50 MG PO SCH ×2 (09:39→20:41)
[2018-07-15] MEDS: Thiamine TAB* 100 MG TAB PO SCH (09:40)
[2018-07-15] MEDS: Pantoprazole TAB * 40 MG TAB PO SCH (09:40)
[2018-07-15] MEDS: Sucralfate TAB* 1 GM PO SCH ×3 (09:40→16:20)
[2018-07-15] MEDS: Folic Acid TAB* 1 MG PO SCH (09:40)
[2018-07-15] MEDS: Multivitamins/Minerals TAB PO SCH (09:41)
[2018-07-15] MEDS: Gabapentin CAP(*) 300 MG PO SCH ×3 (09:41→20:41)
[2018-07-15] MEDS: Sertraline* 25 MG TAB PO SCH (09:41)
[2018-07-15] MEDS: Nicotine PATCH 21 MG/24 HR* PATCH TRANSDERM SCH (09:41)
[2018-07-15] MEDS: Acetaminophen TAB* 325 MG PO PRN ×2 (12:28→21:37)
--- NOTE | 2018-07-15 12:34 | PN ---
Subjective Date of Service: 07/15/18 Interval History: Pt is feeling less well today. He is nervous about going home. He notes his L arm is more swollen, red and hot today. He had a loose BM yesterday but nothing so far today. Objective Active Medications: Acetaminophen (Tylenol Tab*) 975 mg PO Q8H PRN PRN Reason: Fever or Mild Pain Last Admin: 07/13/18 14:14 Dose: 975 mg Hydrocodone Bitart/Acetaminophen ([place] 5-325 Tab*) 1 tab PO Q4H PRN PRN Reason: PAIN Last Admin: 07/15/18 09:54 Dose: 1 tab Al Hydrox/Mg Hydrox/Simethicone (Maalox Plus*) 30 ml PO Q6H PRN PRN Reason: INDIGESTION Last Admin: 07/12/18 20:18 Dose: 30 ml Albuterol (Ventolin 2.5 Mg/3 Ml Neb.Ruth*) 2.5 mg INH [id number] AWAKE PRN PRN Reason: sob/wheezing Device (Tiotropium Inhaler Device*) 1 each INH .USE w/ SPIRIVA CAPS [facility] Dextrose (D50w Syringe 50 Ml*) 12.5 gm IV PUSH .FOR FS < 60 - SS PRN PRN Reason: FS < 60 Enoxaparin Sodium (Lovenox(*)) 40 mg SUBCUT Q24H [facility] Last Admin: 07/14/18 12:58 Dose: 40 mg Folic Acid (Folvite Tab*) 1 mg PO DAILY [facility] Last Admin: 07/15/18 09:40 Dose: 1 mg Gabapentin (Neurontin Cap(*)) 300 mg PO TID [facility] Last Admin: 07/15/18 09:41 Dose: 300 mg Cefazolin Sodium/Dextrose (Kefzol 2 Gm Premix In Ors(*)) 2 gm in 50 mls @ 100 mls/hr IVPB Q8H [facility] Last Admin: 07/15/18 09:42 Dose: 100 mls/hr Clindamycin HCl/Dextrose (Cleocin 600 Mg Ivpremix(*) Sdv) 600 mg in 50 mls @ 100 mls/hr IV Q8H [facility] Last Admin: 07/15/18 12:18 Dose: 100 mls/hr Insulin Human Lispro (Humalog*) 0 units SUBCUT ACHS [facility]; Protocol Last Admin: 07/15/18 12:18 Dose: 2 units Metformin HCl (Glucophage*) 500 mg PO 0800,1700 [facility] Last Admin: 07/15/18 09:39 Dose: 500 mg Metoprolol Succinate (Toprol Xl Tab*) 50 mg PO BID [facility] Last Admin: 07/15/18 09:39 Dose: 50 mg Morphine Sulfate (Morphine 4 Mg/Ml Vial (1 Ml)) 4 mg IV Q6H PRN PRN Reason: Moderate to Severe pain Last Admin: 07/14/18 22:02 Dose: 4 mg Multivitamins/Minerals (Theragran/Minerals Tab*) 1 tab PO DAILY [facility] Last Admin: 07/15/18 09:41 Dose: 1 tab Nicotine (Nicotine Patch 21 Mg/24 Hr*) 1 patch TRANSDERM DAILY [facility] Last Admin: 07/15/18 09:41 Dose: Not Given Ondansetron HCl (Zofran Inj*) 4 mg IV Q6H PRN PRN Reason: NAUSEA Last Admin: 07/14/18 22:02 Dose: 4 mg Pantoprazole Sodium (Protonix Tab*) 40 mg PO DAILY [facility] Last Admin: 07/15/18 09:40 Dose: 40 mg Pharmacy Profile Note (Nicotine Patch Removal Note*) 1 note FOLLOW UP 2100 [facility] Last Admin: 07/14/18 21:02 Dose: Not Given Polyethylene Glycol/Electrolytes (Miralax*) 17 gm PO DAILY PRN PRN Reason: CONSTIPATION Senna (Senokot Tab*) 1 tab PO BEDTIME PRN PRN Reason: if no BM during day Last Admin: 07/12/18 08:51 Dose: 1 tab Sertraline HCl (Zoloft*) 25 mg PO DAILY [facility] Last Admin: 07/15/18 09:41 Dose: 25 mg Sucralfate (Carafate*) 1 gm PO AC [facility] Last Admin: 07/15/18 12:18 Dose: 1 gm Thiamine HCl (Vitamin B-1 Tab*) 100 mg PO DAILY [facility] Last Admin: 07/15/18 09:40 Dose: 100 mg Tiotropium [place] (Spiriva Cap.Inh*) 1 cap INH DAILY [facility] Last Admin: 07/15/18 09:17 Dose: 1 cap Vital Signs - 8 hr 07/15/18 07/15/18 07/15/18 04:33 07:40 09:17 Temperature 97.8 F Pulse Rate 85 Respiratory 18 18 14 Rate Blood Pressure 128/70 (mmHg) O2 Sat by Pulse 96 Oximetry 07/15/18 07/15/18 07/15/18 09:30 09:41 09:54 Temperature Pulse Rate Respiratory 18 18 18 Rate Blood Pressure (mmHg) O2 Sat by Pulse Oximetry 07/15/18 11:05 Temperature 98.2 F Pulse Rate 83 Respiratory 18 Rate Blood Pressure 115/63 (mmHg) O2 Sat by Pulse 92 Oximetry Oxygen Devices in Use Now: None Appearance: Middle aged male sitting up in a chair, NAD Eyes: No Scleral Icterus Ears/Nose/Mouth/Throat: Mucous Membranes Moist Respiratory: Symmetrical Chest Expansion and Respiratory Effort, Clear to Auscultation Cardiovascular: NL Sounds; No Murmurs; No JVD, RRR, No Edema Abdominal: NL Sounds; No Tenderness; No Distention Extremities: No Clubbing, Cyanosis Skin: No Nodules or Sclerosis, - - L arm much more swollen today than yesterday. More erythematous. Hot to touch. Neurological: Alert and Oriented x 3 Result Diagrams: 07/15/18 06:45 07/13/18 06:05 Microbiology and Other Data: Microbiology 07/09/18 13:00 Legionella Urinary Antigen - Final Urine Negative Legionella Antigen Streptococcus pneumoniae Ag Screen - Final Negative S. pneumo Antigen 07/09/18 14:05 Skin and Soft Tissue MRSA/MSSA (PCR - Final Elbow Left Mrsa Negative S.aureus Positive Gram Stain - Final Assess/Plan/Problems-Billing 67yo M who has a h/o alcohol use disorder, active tobacco use complicated by COPD and anxiety, who is presenting with desire to stop drinking and with chronic cough and left elbow pain. The patient was found with tachycardia, fever, leukocytosis, and left elbow concerning for cellulitis. - Patient Problems (1) Sepsis Current Visit: Yes Status: Acute Comment: The patient was septic on admission secondary to L elbow cellulitis. (2) Cellulitis Current Visit: Yes Status: Acute Code(s): L03.90 - CELLULITIS, UNSPECIFIED SNOMED Code(s): 433130565 Comment: The patient's arm looks worse now than yesterday. He has spent more time up in a chair and with the arm in a dependent position. I suspect that may be contributing to the worsened symptoms. I have asked nursing to prop the arm up higher on multiple pillows. Will continue IV Abx as pt appears to have worsened some today. Reassess tomorrow. If no better tomorrow consider repeat imaging with US or CT to eval for abscess. (3) Alcohol abuse Current Visit: Yes Status: Acute Code(s): F10.10 - ALCOHOL ABUSE, UNCOMPLICATED SNOMED Code(s): 75703248 Comment: WAM d/jason. Continue folate and thiamine. Continue gabapentin. Pt states he is going to stop drinking moving forward. (4) Anxiety and depression Current Visit: Yes Status: Acute Code(s): F41.9 - ANXIETY DISORDER, UNSPECIFIED; F32.9 - MAJOR DEPRESSIVE DISORDER, SINGLE EPISODE, UNSPECIFIED SNOMED Code(s): 612624869 Comment: Pt states now he is more nervous. Will increase sertraline to 50mg daily. Will add buspar 5mg TID prn anxiety. (5) COPD (chronic obstructive pulmonary disease) Current Visit: Yes Status: Acute Code(s): J44.9 - CHRONIC OBSTRUCTIVE PULMONARY DISEASE, UNSPECIFIED SNOMED Code(s): 89584342 Comment: Continue spiriva and nebs. No signs of exacerbation. O2 has been weaned off. (6) Diabetes mellitus Current Visit: Yes Status: Acute Code(s): E11.9 - TYPE 2 DIABETES MELLITUS WITHOUT COMPLICATIONS SNOMED Code(s): 09180727 Comment: Continue metformin. Monitor sugars. (7) Tobacco abuse Current Visit: Yes Status: Acute Code(s): Z72.0 - TOBACCO USE SNOMED Code( s): 471902151 Comment: Continue nicotine replacement therapy. (8) DVT prophylaxis Current Visit: Yes Status: Acute Code(s): Z29.9 - ENCOUNTER FOR PROPHYLACTIC MEASURES, UNSPECIFIED SNOMED Code(s): 110305748 Comment: lovenox (9) Full code status Current Visit: Yes Status: Acute Code(s): Z78.9 - OTHER SPECIFIED HEALTH STATUS SNOMED Code(s): 168913135 Status and Disposition: .
[2018-07-15] MEDS: busPIRone TAB* 5 MG PO PRN ×2 (13:48→20:42)
[2018-07-15] MEDS: Enoxaparin(*) 40 MG/0.4 ML SYR SUBCUT SCH (13:50)
--- NOTE | 2018-07-15 15:23 | PN ---
Progress Note - Progress Note Date of Service: 07/15/18 SOAP: Subjective: []Pt seen OOB in chair, he is feeling well without feeling of fever or chills. Feels his arm continues to improve in appearance and decrease in pain Objective: []General: Appears well, NAD LUE: Forearm and elbow still with significant swelling and erythema which has recede from upper arm and hand. Tenderness of forearm and elbow is reduced from previous, mild tenderness still remains. No induration or fluctuance. PROM elbow 0-140 without pain. Assessment: left upper extremity cellulitis that started with a laceration or abrasion overlying olecranon bursa Group A Strep Plan: Remains afebrile with decreasing WBC and CRP Cont IV ancef and clinda Still significantly red and swollen, mgmt ABX continued per ID Will continue to follow, alert orthopedics with any worsening or concerns Vital Signs Temp 98.2 F 07/15/18 11:05 Pulse 83 07/15/18 11:05 Resp 18 07/15/18 13:50 BP 115/63 07/15/18 11:05 Pulse Ox 92 07/15/18 11:05 Intake & Output 07/14/18 07/15/18 07/15/18 18:59 06:59 18:59 Intake Total 1165 485 0 Output Total 300 Balance 1165 185 0 Intake: IV Fluids 50 50 Normal saline 50 50 IVPB 113 195 Cefazolin 58 65 clindamycin 55 130 Oral 1002 240 0 Output: Urine 300 Other: Estimated Void Large Medium # Bowel Movements 0 # Voids 1 2 Laboratory Last Values WBC 9.3 10^3/uL (3.5-10.8) 07/15/18 06:45 RBC 4.59 10^6 /uL (4.18-5.48) 07/15/18 06:45 Hgb 14.6 g/dL (14.0-18.0) 07/15/18 06:45 Hct 43 % (42-52) 07/15/18 06:45 MCV 95 fL (80-94) H 07/15/18 06:45 MCH 32 pg (27-31) H 07/15/18 06:45 MCHC 34 g/dL (31-36) 07/15/18 06:45 RDW 16 % (10.5-15) H 07/15/18 06:45 Plt Count 211 10^3/uL (150-450) 07/15/18 06:45 MPV 7.0 fL (7.4-10.4) L 07/15/18 06:45 Neut % (Auto) 68.3 % 07/15/18 06:45 Lymph % (Auto) 16.7 % 07/15/18 06:45 Lewis % (Auto) 10.7 % 07/15/18 06:45 Eos % (Auto) 3.5 % 07/15/18 06:45 Baso % (Auto) 0.8 % 07/15/18 06:45 Absolute Neuts (auto) 6.4 10^3/ul (1.5-7.7) 07/15/18 06:45 Absolute Lymphs (auto) 1.6 10^3/ul (1.0-4.8) 07/15/18 06:45 Absolute Monos (auto) 1.0 10^3/ul (0-0.8) H 07/15/18 06:45 Absolute Eos (auto) 0.3 10^3/ul (0-0.6) 07/15/18 06:45 Absolute Basos (auto) 0.1 10^3/ul (0-0.2) 07/15/18 06:45 Absolute Nucleated RBC 0.0 10^3/ul 07/15/18 06:45 Neutrophils % 87.0 % 07/09/18 11:27 Lymphocytes % 0.0 % 07/09/18 11:27 Monocytes % 13.0 % 07/09/18 11:27 Eosinophils % 0.0 % 07/09/18 11:27 Basophils % 0.0 % 07/09/18 11:27 Nucleated RBC % 0.1 07/15/18 06:45 Abs Neuts (Manual) 21.1 10^3/ul (1.5-7.7) H 07/09/18 11:27 Abs Lymphs (Manual) 0.0 10^3/ul (1.0-4.8) L 07/09/18 11:27 Abs Monocytes (Manual) 3.1 10^3/ul (0-0.8) H 07/09/18 11:27 Absolute Eos (Manual) 0.0 10^3/ul (0-0.6) 07/09/18 11:27 Abs Basophils (Manual) 0.0 10^3/ul (0-0.2) 07/09/18 11:27 Normal RBC Morphology Normal (Normal) 07/09/18 11:27 ESR 27 mm/Hr (0-19) H 07/12/18 05:23 INR (Anticoag Therapy) 1.17 (0.82-1.09) H 07/09/18 11:27 APTT 32.9 seconds (26.0-36.3) 07/09/18 11:27 ABG pH 7.46 (7.35-7.45) H 07/09/18 11:12 ABG pCO2 32 mmHg (35-45) L 07/09/18 11:12 ABG pO2 78 mmHg (80-100) L 07/09/18 11:12 ABG HCO3 24.6 mmol/L (19-31) 07/09/18 11:12 ABG O2 Saturation 98.3 % (94.0-98.0) H 07/09/18 11:12 ABG Base Excess -0.3 mmol/L (-2.0-2.0) 07/09/18 11:12 Sodium 134 mmol/L (135-145) L 07/13/18 06:05 Potassium 3.4 mmol/L (3.5-5.0) L 07/13/18 06:05 Chloride 97 mmol/L (101-111) L 07/13/18 06:05 Carbon Dioxide 28 mmol/L (22-32) 07/13/18 06:05 Anion Gap 9 mmol/L (2-11) 07/13/18 06:05 BUN 16 mg/dL (6-24) 07/13/18 06:05 Creatinine 0.68 mg/dL (0.67-1.17) 07/13/18 06:05 Est GFR ( Amer) 141.6 (>60) 07/13/18 06:05 Est GFR (Non-Af Amer) 117.0 (>60) 07/13/18 06:05 BUN/Creatinine Ratio 23.5 (8-20) H 07/13/18 06:05 Glucose 125 mg/dL (70-100) H 07/13/18 06:05 POC Glucose (mg/dL) 79 mg/dL (70-100) 07/15/18 07:44 Hemoglobin A1c 7.4 % (4.0-5.6) H 07/10/18 06:01 Lactic Acid 2.3 mmol/L (0.5-2.0) H* 07/09/18 17:15 Calcium 8.2 mg/dL (8.6-10.3) L 07/13/18 06:05 Magnesium 2.2 mg/dL (1.9-2.7) 07/13/18 06:05 Total Bilirubin 0.40 mg/dL (0.2-1.0) 07/12/18 05:23 AST 20 U/L (13-39) 07/12/18 05:23 ALT 17 U/L (7-52) 07/12/18 05:23 Alkaline Phosphatase 78 U/L (34-104) 07/12/18 05:23 Ammonia 49 mcmol/L (16-53) 07/09/18 17:15 Total Creatine Kinase 29 U/L (10-223) 07/12/18 05:23 CK-MB (CK-2) 4.8 ng/mL (0.6-6.3) 07/09/18 11:27 Troponin I 0.21 ng/mL (<0.04) H* 07/10/18 06:01 C-Reactive Protein 119.18 mg/L (<8.01) H 07/15/18 06:45 B-Natriuretic Peptide 52 pg/mL (<=100) 07/09/18 11:27 Total Protein 5.7 g/dL (6.4-8.9) L 07/12/18 05:23 Albumin 3.1 g/dL (3.2-5.2) L 07/12/18 05:23 Globulin 2.6 g/dL (2-4) 07/12/18 05:23 Albumin/Globulin Ratio 1.2 (1-3) 07/12/18 05:23 Triglycerides 95 mg/dL 07/10/18 06:01 Cholesterol 131 mg/dL 07/10/18 06:01 LDL Cholesterol 74 mg/dL 07/10/18 06:01 HDL Cholesterol 37.8 mg/dL 07/10/18 06:01 TSH 1.83 mcIU/mL (0.34-5.60) 07/11/18 06:17 Urine Color Yellow 07/09/18 13:11 Urine Appearance Clear 07/09/18 13:11 Urine pH 5.0 (5-9) 07/09/18 13:11 Ur Specific [place] 1.005 (1.010-1.030) L 07/09/18 13:11 Urine Protein Negative (Negative) 07/09/18 13:11 Urine Ketones Trace (Negative) A 07/09/18 13:11 Urine Blood 1+ (Negative) A 07/09/18 13:11 Urine Nitrate Negative (Negative) 07/09/18 13:11 Urine Bilirubin Negative (Negative) 07/09/18 13:11 Urine Urobilinogen Negative (Negative) 07/09/18 13:11 Ur Leukocyte Esterase Negative (Negative) 07/09/18 13:11 Urine WBC (Auto) Absent (Absent) 07/09/18 13:11 Urine RBC (Auto) Trace(0-2/hpf) (Absent) 07/09/18 13:11 Ur Squamous Epith Cells Present (Absent) A 07/09/18 13:11 Urine Bacteria Absent (Absent) 07/09/18 13:11 Urine Glucose 2+(150 mg/dl) (Negative) A 07/09/18 13:11 <Hayde Goddard - Last Filed: 07/15/18 15:25> - Progress Note SOAP: Subjective: Decreased pain LUE compared with yesterday. Objective: Decreased swelling, erythema compared with yesterday Still significant swelling, erythema CRP decreased. WBC normal. Assessment: HD 7 LUE cellulitis with Group A strep Plan: - Recommend continued IV abx - There has never been any fluid collection on exam and MRI, so no additional imaging required for surveillance. - Clear effective successful treatment response. - Duration IV abx per ID, although my preference is for at least 2 more days until the swelling is down to a more reasonable level <Mohsen Stephens - Last Filed: 07/15/18 18:50>
[2018-07-15] MEDS: Morphine 4 MG/ML VIAL (1 ml) 4 MG/ML VIAL IV PRN (20:39)
[2018-07-15] MEDS: Nicotine Patch Removal NOTE FOLLOW UP SCH (20:50)
[2018-07-16] MEDS: ceFAZolin* 2 GM* Q8H (Duplex) IVPB SCH ×3 (01:56→17:31)
[2018-07-16] MEDS: Clindamycin 600 MG IVPREMIX(* 600 MG/50 ML SDV IV SCH ×3 (04:01→19:38)
[2018-07-16] MEDS: Acetaminophen TAB* 325 MG PO PRN (05:32)
[2018-07-16] MEDS: Folic Acid TAB* 1 MG PO SCH (07:43)
[2018-07-16] MEDS: metFORMIN* 500 MG TAB PO SCH ×2 (07:43→16:29)
[2018-07-16] MEDS: Metoprolol Succinate XL TAB* 50 MG PO SCH ×2 (07:43→19:43)
[2018-07-16] MEDS: Sucralfate TAB* 1 GM PO SCH ×3 (07:44→16:29)
[2018-07-16] MEDS: Pantoprazole TAB * 40 MG TAB PO SCH (07:44)
[2018-07-16] MEDS: Multivitamins/Minerals TAB PO SCH (07:44)
[2018-07-16] MEDS: Gabapentin CAP(*) 300 MG PO SCH ×3 (07:44→19:45)
[2018-07-16] MEDS: Thiamine TAB* 100 MG TAB PO SCH (07:44)
[2018-07-16] MEDS: Sertraline* 50 MG TAB PO SCH (07:44)
[2018-07-16] MEDS: Nicotine PATCH 21 MG/24 HR* PATCH TRANSDERM SCH (07:45)
[2018-07-16] MEDS: Tiotropium CAP.INH* CAP.INH/18 MCG (USE ORDER SET !) INH SCH (08:44)
[2018-07-16] MEDS: Insulin LISPRO* 1 UNITS UNIT SUBCUT SCH ×4 (09:33→19:37)
--- NOTE | 2018-07-16 09:51 | PN ---
Progress Note - Progress Note Date of Service: 07/16/18 SOAP: Subjective: CC: Left arm infection HPI: Mr. Russ is a 67 yo male with PMH significant for alcohol use disorder, COPD, tobacco abuse, and anxiety who presented to the ED requesting alcohol detox. While in the ED he was found to have erythema to the left elbow and underwent an ultrasound guided I+D. Denies fever, chills, shortness of breath, chest discomfort, N/V. Reports a few loose stools daily, denies significant diarrhea. Feels like each day the edema in the left arm is improving. Objective: Vital Signs - 8 hr 07/16/18 07/16/18 07/16/18 02:00 03:05 07:16 Temperature 96.9 F 98.2 F Pulse Rate 86 84 Respiratory 18 20 16 Rate Blood Pressure 124/74 107/58 (mmHg) O2 Sat by Pulse 93 94 Oximetry 07/16/18 07/16/18 07:44 08:45 Temperature Pulse Rate 89 Respiratory 16 16 Rate Blood Pressure (mmHg) O2 Sat by Pulse 95 Oximetry Physical Exam: General: NAD, sitting up in a chair Neurological: Alert and Oriented x 4 HEENT: No thrush, moist MM Cardiovascular: Heart rate regular Respiratory: Lung sounds clear Abdominal: Bowel sounds present; ABD soft, non tender and non distended Musculoskeletal: Full ROM to the left fingers, wrist, elbow and shoulder. 1+ edema to the left forearm Skin: Erythema to the left forearm and hand Laboratory Results - last 24 hr 07/16/18 07/16/18 06:53 07:36 POC Glucose (mg/dL) 153 H C-Reactive Protein 97.71 H Microbiology 07/09/18 11:35 Aerobic Blood Culture - Final Blood Venous No Growth Day 5 Anaerobic Blood Culture - Final No Growth Day 5 07/09/18 11:35 Aerobic Blood Culture - Final Blood Venous No Growth Day 5 Anaerobic Blood Culture - Final No Growth Day 5 07/09/18 14:05 Skin and Soft Tissue MRSA/MSSA (PCR - Final Elbow Left Mrsa Negative S.aureus Positive Gram Stain - Final Wound Culture - Final Strep Pyogenes (Grp A) Normal Jacy 07/09/18 13:00 Legionella Urinary Antigen - Final Urine Negative Legionella Antigen Streptococcus pneumoniae Ag Screen - Final Negative S. pneumo Antigen Assessment: 1. Left arm cellulitis with associated olecranon bursitis. Left elbow culture with MSSA positive PCR, and final results with Strep Pyogenes (Group A). Blood cultures no growth, day 3. Afebrile and leukocytosis improving. CRP is trending down after peaking at 242, todays CRP is 97.71. The erythema and edema are slowly improving. 2. Alcohol use disorder. 3. DM2. 4. PCN allergy, caused a rash in adulthood Plan: Continue IV cefazolin and clindamycin for now, until there is significant improvement in the erythema and edema.
[2018-07-16] MEDS: HYDROcodone/ACETAMIN 5-325 MG* 1 TAB PO PRN ×2 (10:07→19:43)
[2018-07-16] MEDS: Ondansetron INJ* 2 MG/ML VIAL IV PRN (14:21)
[2018-07-16] MEDS: Enoxaparin(*) 40 MG/0.4 ML SYR SUBCUT SCH (14:24)
--- NOTE | 2018-07-16 17:22 | PN ---
Progress Note - Progress Note Date of Service: 07/16/18 SOAP: Subjective: Pt seen today for f/u left arm cellulitis. Pt reports that arm continues to improve. Pain is better. Denies paresthesias or numbness. Denies f/c. Objective: Vitals: Temp Pulse Resp BP Pulse Ox 98.0 F 94 16 126/68 94 07/16/18 15:00 07/16/18 15:00 07/16/18 15:00 07/16/18 15:00 07/16/18 15:00 Gen: A&Ox3, NAD at rest sitting in chair LUE: Redness improving. Puncture incision to posterior elbow healed. Moderate pitting edema to forearm only, no swelling to hand or upper arm. +f/e at wrist, MCP, PIP and DIPs. N/V intact. Pt still with painless PROM of elbow Labs: Laboratory Results - last 24 hr 07/15/18 07/16/18 07/16/18 20:09 06:53 07:36 POC Glucose (mg/dL) 115 H 153 H C-Reactive Protein 97.71 H 07/16/18 11:40 POC Glucose (mg/dL) 165 H C-Reactive Protein Assessment: Left arm cellulitis Plan: Cont IV abx per ID Encouraged continued elevation of arm, continue ROM of elbow, wrist and hand Pain control as needed
--- NOTE | 2018-07-16 18:34 | PN ---
Subjective Date of Service: 07/16/18 Interval History: Patient seen and examined. States he still has significant pain in RUE with swelling and redness. Trying to maintain elevation. No obvious signs of detox last 24 hours. No further complaints. No acute overnight events. Objective Active Medications: Acetaminophen (Tylenol Tab*) 975 mg PO Q8H PRN PRN Reason: Fever or Mild Pain Last Admin: 07/16/18 05:32 Dose: 650 mg Hydrocodone Bitart/Acetaminophen ([place] 5-325 Tab*) 1 tab PO Q4H PRN PRN Reason: PAIN Last Admin: 07/16/18 10:07 Dose: 1 tab Al Hydrox/Mg Hydrox/Simethicone (Maalox Plus*) 30 ml PO Q6H PRN PRN Reason: INDIGESTION Last Admin: 07/12/18 20:18 Dose: 30 ml Albuterol (Ventolin 2.5 Mg/3 Ml Neb.Ruth*) 2.5 mg INH [id number] AWAKE PRN PRN Reason: sob/wheezing Buspirone HCl (Buspar Tab*) 5 mg PO TID PRN PRN Reason: anxiety Last Admin: 07/15/18 20:42 Dose: 5 mg Device (Tiotropium Inhaler Device*) 1 each INH .USE w/ SPIRIVA CAPS [facility] Dextrose (D50w Syringe 50 Ml*) 12.5 gm IV PUSH .FOR FS < 60 - SS PRN PRN Reason: FS < 60 Enoxaparin Sodium (Lovenox(*)) 40 mg SUBCUT Q24H [facility] Last Admin: 07/16/18 14:24 Dose: 40 mg Folic Acid (Folvite Tab*) 1 mg PO DAILY [facility] Last Admin: 07/16/18 07:43 Dose: 1 mg Gabapentin (Neurontin Cap(*)) 300 mg PO TID [facility] Last Admin: 07/16/18 14:23 Dose: 300 mg Cefazolin Sodium/Dextrose (Kefzol 2 Gm Premix In Ors(*)) 2 gm in 50 mls @ 100 mls/hr IVPB Q8H [facility] Last Admin: 07/16/18 17:31 Dose: 100 mls/hr Clindamycin HCl/Dextrose (Cleocin 600 Mg Ivpremix(*) Sdv) 600 mg in 50 mls @ 100 mls/hr IV Q8H [facility] Last Admin: 07/16/18 12:43 Dose: 100 mls/hr Insulin Human Lispro (Humalog*) 0 units SUBCUT ACHS [facility]; Protocol Last Admin: 07/16/18 17:31 Dose: 1 units Metformin HCl (Glucophage*) 500 mg PO 0800,1700 [facility] Last Admin: 07/16/18 16:29 Dose: 500 mg Metoprolol Succinate (Toprol Xl Tab*) 50 mg PO BID [facility] Last Admin: 07/16/18 07:43 Dose: 50 mg Morphine Sulfate (Morphine 4 Mg/Ml Vial (1 Ml)) 4 mg IV Q6H PRN PRN Reason: Moderate to Severe pain Last Admin: 07/15/18 20:39 Dose: 4 mg Multivitamins/Minerals (Theragran/Minerals Tab*) 1 tab PO DAILY [facility] Last Admin: 07/16/18 07:44 Dose: 1 tab Nicotine (Nicotine Patch 21 Mg/24 Hr*) 1 patch TRANSDERM DAILY [facility] Last Admin: 07/16/18 07:45 Dose: Not Given Ondansetron HCl (Zofran Inj*) 4 mg IV Q6H PRN PRN Reason: NAUSEA Last Admin: 07/16/18 14:21 Dose: 4 mg Pantoprazole Sodium (Protonix Tab*) 40 mg PO DAILY [facility] Last Admin: 07/16/18 07:44 Dose: 40 mg Pharmacy Profile Note (Nicotine Patch Removal Note*) 1 note FOLLOW UP 2100 [facility] Last Admin: 07/15/18 20:50 Dose: Not Given Polyethylene Glycol/Electrolytes (Miralax*) 17 gm PO DAILY PRN PRN Reason: CONSTIPATION Senna (Senokot Tab*) 1 tab PO BEDTIME PRN PRN Reason: if no BM during day Last Admin: 07/12/18 08:51 Dose: 1 tab Sertraline HCl (Zoloft*) 50 mg PO DAILY [facility] Last Admin: 07/16/18 07:44 Dose: 50 mg Sucralfate (Carafate*) 1 gm PO AC [facility] Last Admin: 07/16/18 16:29 Dose: 1 gm Thiamine HCl (Vitamin B-1 Tab*) 100 mg PO DAILY [facility] Last Admin: 07/16/18 07:44 Dose: 100 mg Tiotropium [place] (Spiriva Cap.Inh*) 1 cap INH DAILY [facility] Last Admin: 07/16/18 08:44 Dose: 1 cap Vital Signs - 8 hr 07/16/18 07/16/18 07/16/18 11:23 14:23 15:00 Temperature 98.1 F 98.0 F Pulse Rate 85 94 Respiratory 16 16 16 Rate Blood Pressure 129/70 126/68 (mmHg) O2 Sat by Pulse 96 94 Oximetry Oxygen Devices in Use Now: None Appearance: alert, NAD Eyes: No Scleral Icterus, PERRLA Ears/Nose/Mouth/Throat: NL Teeth, Lips, Gums, Mucous Membranes Moist Neck: NL Appearance and Movements; NL JVP, Trachea Midline Respiratory: Symmetrical Chest Expansion and Respiratory Effort, Clear to Auscultation Cardiovascular: NL Sounds; No Murmurs; No JVD, RRR, No Edema Abdominal: NL Sounds; No Tenderness; No Distention Extremities: No Clubbing, Cyanosis, - - LUE erythema, edema with fluctuance around the elbow, seems to be improving, tender to palpation Neurological: Alert and Oriented x 3, NL Sensation, NL Gait Nutrition: Taking PO's Result Diagrams: 07/15/18 06:45 07/13/18 06:05 Microbiology and Other Data: Microbiology 07/09/18 13:00 Legionella Urinary Antigen - Final Urine Negative Legionella Antigen Streptococcus pneumoniae Ag Screen - Final Negative S. pneumo Antigen 07/09/18 14:05 Skin and Soft Tissue MRSA/MSSA (PCR - Final Elbow Left Mrsa Negative S.aureus Positive Gram Stain - Final Assess/Plan/Problems-Billing 67yo M who has a h/o alcohol use disorder, active tobacco use complicated by COPD and anxiety, who is presenting with desire to stop drinking and with chronic cough and left elbow pain. The patient was found with tachycardia, fever, leukocytosis, and left elbow concerning for cellulitis. - Patient Problems (1) Cellulitis Code(s): L03.90 - CELLULITIS, UNSPECIFIED SNOMED Code(s): 510261722 Comment: - Some improvement today with retraction of erythema of the fingers and some reduction in edema - Continue clindamycin and ancef for strep pyogenes and MSSA in the olecranon bursa - ID and ortho following (2) Alcohol abuse Code(s): F10.10 - ALCOHOL ABUSE, UNCOMPLICATED SNOMED Code(s): 39221963 Comment: - Not scoring, WAM DCd yesterday - Continue MVI, gabapentin, thiamine and folate - Will need outpatient f/u (3) Anxiety and depression Code(s): F41.9 - ANXIETY DISORDER, UNSPECIFIED; F32.9 - MAJOR DEPRESSIVE DISORDER, SINGLE EPISODE, UNSPECIFIED SNOMED Code(s): 391365714 Comment: - Sertraline increased to 50mg daily - Buspar 5mg TID prn anxiety (4) COPD (chronic obstructive pulmonary disease) Code(s): J44.9 - CHRONIC OBSTRUCTIVE PULMONARY DISEASE, UNSPECIFIED SNOMED Code(s): 63201965 Comment: - Continue spiriva and nebs. - No signs of exacerbation, no O2 requirement (5) Diabetes mellitus Code(s): E11.9 - TYPE 2 DIABETES MELLITUS WITHOUT COMPLICATIONS SNOMED Code(s) : 47120338 Comment: - Continue metformin (6) Sepsis Comment: - Septic on admission, now resolved (7) DVT prophylaxis Code(s): Z29.9 - ENCOUNTER FOR PROPHYLACTIC MEASURES, UNSPECIFIED SNOMED Code( s): 926169084 Comment: - lovenox (8) Full code status Code(s): Z78.9 - OTHER SPECIFIED HEALTH STATUS SNOMED Code(s): 630826940 Status and Disposition: Inpatient for IV atbx, dispo per ID and ortho.
[2018-07-16] MEDS: Nicotine Patch Removal NOTE FOLLOW UP SCH (19:38)
[2018-07-17] MEDS: ceFAZolin* 2 GM* Q8H (Duplex) IVPB SCH ×3 (01:20→17:54)
[2018-07-17] MEDS: Clindamycin 600 MG IVPREMIX(* 600 MG/50 ML SDV IV SCH ×3 (05:17→19:58)
[2018-07-17] MEDS: HYDROcodone/ACETAMIN 5-325 MG* 1 TAB PO PRN ×2 (06:13→23:00)
[2018-07-17] MEDS: Tiotropium CAP.INH* CAP.INH/18 MCG (USE ORDER SET !) INH SCH (07:07)
[2018-07-17] MEDS: Sucralfate TAB* 1 GM PO SCH ×3 (08:17→17:08)
[2018-07-17] MEDS: Ondansetron INJ* 2 MG/ML VIAL IV PRN (08:18)
[2018-07-17] MEDS: Nicotine PATCH 21 MG/24 HR* PATCH TRANSDERM SCH (08:20)
[2018-07-17] MEDS: Folic Acid TAB* 1 MG PO SCH (08:21)
[2018-07-17] MEDS: Multivitamins/Minerals TAB PO SCH (08:21)
[2018-07-17] MEDS: metFORMIN* 500 MG TAB PO SCH ×2 (08:21→17:08)
[2018-07-17] MEDS: Insulin LISPRO* 1 UNITS UNIT SUBCUT SCH ×4 (08:21→20:04)
[2018-07-17] MEDS: Pantoprazole TAB * 40 MG TAB PO SCH (08:21)
[2018-07-17] MEDS: Thiamine TAB* 100 MG TAB PO SCH (08:21)
[2018-07-17] MEDS: Gabapentin CAP(*) 300 MG PO SCH ×3 (08:21→20:07)
[2018-07-17] MEDS: Metoprolol Succinate XL TAB* 50 MG PO SCH ×2 (08:22→20:08)
[2018-07-17] MEDS: Sertraline* 50 MG TAB PO SCH (08:22)
[2018-07-17 09:03] LABS: C Reactive Protein 96.87 mg/L (<8.01)
[2018-07-17 09:27] LABS: Hematocrit 45 % (42-52); Hemoglobin 14.7 g/dL (14.0-18.0); Mean Corpuscular HGB Conc 33 g/dL (31-36); Mean Corpuscular Hemoglobin 31 pg (27-31); Mean Corpuscular Volume 95 fL (80-94); Mean Platelet Volume 6.9 fL (7.4-10.4); Platelet Count 293 10^3/uL (150-450); Red Blood Count 4.69 10^6 /uL (4.18-5.48); Red Cell Distribution Width 16 % (10.5-15)
[2018-07-17 09:39] LABS: BUN/Creatinine Ratio 12.3 (8-20); Calcium 8.4 mg/dL (8.6-10.3); EGFR African American 130.5 (>60); EGFR Non-African American 107.8 (>60); Potassium 4.2 mmol/L (3.5-5.0)
--- NOTE | 2018-07-17 10:31 | PN ---
Progress Note - Progress Note Date of Service: 07/17/18 SOAP: Subjective: Decreased pain. Objective: LUE: - Significantly decreased area of erythema and swelling compared with 2 days ago. Now mostly limited to elbow and proximal and mid forearm. - No PROM elbow, wrist. - NVID - No axillary TTP Selected Entries 07/17/18 07:16 Temperature 98.6 F Pulse Rate 85 Respiratory 20 Rate Blood Pressure 128/83 (mmHg) O2 Sat by Pulse 95 Oximetry Laboratory Tests 07/15/18 07/16/18 07/17/18 06:45 06:53 07:57 WBC 9.3 Neut % (Auto) 68.3 C-Reactive Protein 97.71 H 96.87 H 07/17/18 07:57 WBC 10.0 Neut % (Auto) C-Reactive Protein Assessment: HD 9 LUE cellulitis starting with olecranon bursa for Strep pyogenes Never any abscess or fluid collection, just remarkably aggressive cellulitis in patient with DM and ETOH Plan: - Continue IV abx, Clinda and Ancef - Clear effective response to abx, although longer course certainly needed of IV or oral abx - Transition to oral abx timeline is unclear per ID service and to any literature I know of. - Patient mentioned someone had discussed with him discharge home on oral abx on Thursday in 2 days. This seems reasonable. - Patient can follow up in 2 weeks in clinic with me. I recommend 2 weeks of oral antibiotics at hospital discharge although I defer if ID has any alternative recommendation. - Recommend ice to LUE to reduce swelling.
[2018-07-17] MEDS: Enoxaparin(*) 40 MG/0.4 ML SYR SUBCUT SCH (13:51)
--- NOTE | 2018-07-17 19:09 | PN ---
Subjective Date of Service: 07/17/18 Interval History: Patient seen and examined. No acute overnight events. Patient states his arms seems to be improving. Feels his hands are now equal in size and redness is improved. Denies fevers or chills, no further complaints. Objective Active Medications: Acetaminophen (Tylenol Tab*) 975 mg PO Q8H PRN PRN Reason: Fever or Mild Pain Last Admin: 07/16/18 05:32 Dose: 650 mg Hydrocodone Bitart/Acetaminophen ([place] 5-325 Tab*) 1 tab PO Q4H PRN PRN Reason: PAIN Last Admin: 07/17/18 06:13 Dose: 1 tab Al Hydrox/Mg Hydrox/Simethicone (Maalox Plus*) 30 ml PO Q6H PRN PRN Reason: INDIGESTION Last Admin: 07/12/18 20:18 Dose: 30 ml Albuterol (Ventolin 2.5 Mg/3 Ml Neb.Ruth*) 2.5 mg INH [id number] AWAKE PRN PRN Reason: sob/wheezing Buspirone HCl (Buspar Tab*) 5 mg PO TID PRN PRN Reason: anxiety Last Admin: 07/15/18 20:42 Dose: 5 mg Device (Tiotropium Inhaler Device*) 1 each INH .USE w/ SPIRIVA CAPS [facility] Dextrose (D50w Syringe 50 Ml*) 12.5 gm IV PUSH .FOR FS < 60 - SS PRN PRN Reason: FS < 60 Enoxaparin Sodium (Lovenox(*)) 40 mg SUBCUT Q24H [facility] Last Admin: 07/17/18 13:51 Dose: 40 mg Folic Acid (Folvite Tab*) 1 mg PO DAILY [facility] Last Admin: 07/17/18 08:21 Dose: 1 mg Gabapentin (Neurontin Cap(*)) 300 mg PO TID [facility] Last Admin: 07/17/18 13:50 Dose: 300 mg Cefazolin Sodium/Dextrose (Kefzol 2 Gm Premix In Ors(*)) 2 gm in 50 mls @ 100 mls/hr IVPB Q8H [facility] Last Admin: 07/17/18 17:54 Dose: 100 mls/hr Clindamycin HCl/Dextrose (Cleocin 600 Mg Ivpremix(*) Sdv) 600 mg in 50 mls @ 100 mls/hr IV Q8H [facility] Last Admin: 07/17/18 12:00 Dose: 100 mls/hr Insulin Human Lispro (Humalog*) 0 units SUBCUT [facility]; Protocol Last Admin: 07/17/18 17:08 Dose: Not Given Metformin HCl (Glucophage*) 500 mg PO 0800,1700 [facility] Last Admin: 07/17/18 17:08 Dose: 500 mg Metoprolol Succinate (Toprol Xl Tab*) 50 mg PO BID [facility] Last Admin: 07/17/18 08:22 Dose: 50 mg Morphine Sulfate (Morphine 4 Mg/Ml Vial (1 Ml)) 4 mg IV Q6H PRN PRN Reason: Moderate to Severe pain Last Admin: 07/15/18 20:39 Dose: 4 mg Multivitamins/Minerals (Theragran/Minerals Tab*) 1 tab PO DAILY [facility] Last Admin: 07/17/18 08:21 Dose: 1 tab Nicotine (Nicotine Patch 21 Mg/24 Hr*) 1 patch TRANSDERM DAILY [facility] Last Admin: 07/17/18 08:20 Dose: 1 patch Ondansetron HCl (Zofran Inj*) 4 mg IV Q6H PRN PRN Reason: NAUSEA Last Admin: 07/17/18 08:18 Dose: 4 mg Pantoprazole Sodium (Protonix Tab*) 40 mg PO DAILY [facility] Last Admin: 07/17/18 08:21 Dose: 40 mg Pharmacy Profile Note (Nicotine Patch Removal Note*) 1 note FOLLOW UP 2100 [facility] Last Admin: 07/16/18 19:38 Dose: Not Given Polyethylene Glycol/Electrolytes (Miralax*) 17 gm PO DAILY PRN PRN Reason: CONSTIPATION Senna (Senokot Tab*) 1 tab PO BEDTIME PRN PRN Reason: if no BM during day Last Admin: 07/12/18 08:51 Dose: 1 tab Sertraline HCl (Zoloft*) 50 mg PO DAILY [facility] Last Admin: 07/17/18 08:22 Dose: 50 mg Sucralfate (Carafate*) 1 gm PO AC [facility] Last Admin: 07/17/18 17:08 Dose: 1 gm Thiamine HCl (Vitamin B-1 Tab*) 100 mg PO DAILY [facility] Last Admin: 07/17/18 08:21 Dose: 100 mg Tiotropium [place] (Spiriva Cap.Inh*) 1 cap INH DAILY [facility] Last Admin: 07/17/18 07:07 Dose: 1 cap Vital Signs - 8 hr 07/17/18 07/17/18 07/17/18 13:50 14:42 15:26 Temperature 98.1 F Pulse Rate 82 Respiratory 17 20 18 Rate Blood Pressure 135/73 (mmHg) O2 Sat by Pulse 95 Oximetry Oxygen Devices in Use Now: None Appearance: alert, NAD Eyes: No Scleral Icterus, PERRLA Ears/Nose/Mouth/Throat: NL Teeth, Lips, Gums, Mucous Membranes Moist Neck: NL Appearance and Movements; NL JVP, Trachea Midline Respiratory: Symmetrical Chest Expansion and Respiratory Effort, - - small expiratory wheeze on left Cardiovascular: NL Sounds; No Murmurs; No JVD, No Edema Abdominal: NL Sounds; No Tenderness; No Distention Extremities: No Clubbing, Cyanosis, - - erythema and edema improving, left wrist now with clearing, primary areas now localized to elbow and mid forearm Skin: No Rash or Ulcers Neurological: Alert and Oriented x 3, NL Gait Nutrition: Taking PO's Result Diagrams: 07/17/18 07:57 07/17/18 07:57 Microbiology and Other Data: Microbiology 07/09/18 13:00 Legionella Urinary Antigen - Final Urine Negative Legionella Antigen Streptococcus pneumoniae Ag Screen - Final Negative S. pneumo Antigen 07/09/18 14:05 Skin and Soft Tissue MRSA/MSSA (PCR - Final Elbow Left Mrsa Negative S.aureus Positive Gram Stain - Final Assess/Plan/Problems-Billing 67yo M who has a h/o alcohol use disorder, active tobacco use complicated by COPD and anxiety, who is presenting with desire to stop drinking and with chronic cough and left elbow pain. The patient was found with tachycardia, fever, leukocytosis, and left elbow concerning for cellulitis. - Patient Problems (1) Cellulitis Code(s): L03.90 - CELLULITIS, UNSPECIFIED SNOMED Code(s): 986121739 Comment: - Additional improvement with retraction of erythema/edema, requested RN to theron edges - Continue clindamycin and ancef for strep pyogenes and MSSA in the olecranon bursa until Thursday, will discuss PO atbx choices for discharge - ID and ortho following (2) Alcohol abuse Code(s): F10.10 - ALCOHOL ABUSE, UNCOMPLICATED SNOMED Code(s): 62227954 Comment: - Not scoring, WAM DCd yesterday - Continue MVI, gabapentin, thiamine and folate - Will need outpatient f/u (3) Anxiety and depression Code(s): F41.9 - ANXIETY DISORDER, UNSPECIFIED; F32.9 - MAJOR DEPRESSIVE DISORDER, SINGLE EPISODE, UNSPECIFIED SNOMED Code(s): 491666772 Comment: - Sertraline increased to 50mg daily - Buspar 5mg TID prn anxiety (4) COPD (chronic obstructive pulmonary disease) Code(s): J44.9 - CHRONIC OBSTRUCTIVE PULMONARY DISEASE, UNSPECIFIED SNOMED Code(s): 52197450 Comment: - Continue spiriva; nebs PRN - No signs of exacerbation, no O2 requirement (5) Diabetes mellitus Code(s): E11.9 - TYPE 2 DIABETES MELLITUS WITHOUT COMPLICATIONS SNOMED Code(s) : 96951744 Comment: - Continue metformin (6) Sepsis Comment: - Septic on admission, now resolved (7) DVT prophylaxis Code(s): Z29.9 - ENCOUNTER FOR PROPHYLACTIC MEASURES, UNSPECIFIED SNOMED Code( s): 976844990 Comment: - lovenox (8) Full code status Code(s): Z78.9 - OTHER SPECIFIED HEALTH STATUS SNOMED Code(s): 488956628 Status and Disposition: Inpatient for IV atbx, dispo per ID and ortho, likely home Thursday with outpatient follow up.
[2018-07-17] MEDS: Nicotine Patch Removal NOTE FOLLOW UP SCH (20:05)
[2018-07-18] MEDS: ceFAZolin* 2 GM* Q8H (Duplex) IVPB SCH ×3 (01:55→17:24)
[2018-07-18] MEDS: Clindamycin 600 MG IVPREMIX(* 600 MG/50 ML SDV IV SCH ×3 (03:06→20:30)
[2018-07-18] MEDS: busPIRone TAB* 5 MG PO PRN ×2 (03:10→22:26)
[2018-07-18] MEDS: Tiotropium CAP.INH* CAP.INH/18 MCG (USE ORDER SET !) INH SCH (07:08)
[2018-07-18] MEDS: Pantoprazole TAB * 40 MG TAB PO SCH (08:20)
[2018-07-18] MEDS: Folic Acid TAB* 1 MG PO SCH (08:20)
[2018-07-18] MEDS: Multivitamins/Minerals TAB PO SCH (08:20)
[2018-07-18] MEDS: Sertraline* 50 MG TAB PO SCH (08:20)
[2018-07-18] MEDS: Metoprolol Succinate XL TAB* 50 MG PO SCH ×2 (08:20→20:00)
[2018-07-18] MEDS: metFORMIN* 500 MG TAB PO SCH ×2 (08:20→17:24)
[2018-07-18] MEDS: Thiamine TAB* 100 MG TAB PO SCH (08:21)
[2018-07-18] MEDS: Gabapentin CAP(*) 300 MG PO SCH ×3 (08:21→20:01)
[2018-07-18] MEDS: Sucralfate TAB* 1 GM PO SCH ×3 (08:21→17:24)
[2018-07-18] MEDS: Nicotine PATCH 21 MG/24 HR* PATCH TRANSDERM SCH (08:21)
[2018-07-18] MEDS: Insulin LISPRO* 1 UNITS UNIT SUBCUT SCH ×4 (08:25→20:30)
--- NOTE | 2018-07-18 13:58 | PN ---
Progress Note - Progress Note Date of Service: 07/18/18 SOAP: Subjective: Pt seen sitting in chair. Pain much improved. States that it gets better every day. Denies CP, SOB, F/C Vital Signs: Temp Pulse Resp BP Pulse Ox 98.0 F 77 18 108/66 96 07/18/18 11:47 07/18/18 11:47 07/18/18 12:19 07/18/18 11:47 07/18/18 11:47 Laboratory Last Values WBC 10.0 10^3/uL (3.5-10.8) 07/17/18 07:57 RBC 4.69 10^6 /uL (4.18-5.48) 07/17/18 07:57 Hgb 14.7 g/dL (14.0-18.0) 07/17/18 07:57 Hct 45 % (42-52) 07/17/18 07:57 MCV 95 fL (80-94) H 07/17/18 07:57 MCH 31 pg (27-31) 07/17/18 07:57 MCHC 33 g/dL (31-36) 07/17/18 07:57 RDW 16 % (10.5-15) H 07/17/18 07:57 Plt Count 293 10^3/uL (150-450) 07/17/18 07:57 MPV 6.9 fL (7.4-10.4) L 07/17/18 07:57 Neut % (Auto) 68.3 % 07/15/18 06:45 Lymph % (Auto) 16.7 % 07/15/18 06:45 [place] % (Auto) 10.7 % 07/15/18 06:45 Eos % (Auto) 3.5 % 07/15/18 06:45 Baso % (Auto) 0.8 % 07/15/18 06:45 Absolute Neuts (auto) 6.4 10^3/ul (1.5-7.7) 07/15/18 06:45 Absolute Lymphs (auto) 1.6 10^3/ul (1.0-4.8) 07/15/18 06:45 Absolute Monos (auto) 1.0 10^3/ul (0-0.8) H 07/15/18 06:45 Absolute Eos (auto) 0.3 10^3/ul (0-0.6) 07/15/18 06:45 Absolute Basos (auto) 0.1 10^3/ul (0-0.2) 07/15/18 06:45 Absolute Nucleated RBC 0.0 10^3/ul 07/15/18 06:45 Neutrophils % 87.0 % 07/09/18 11:27 Lymphocytes % 0.0 % 07/09/18 11:27 Monocytes % 13.0 % 07/09/18 11:27 Eosinophils % 0.0 % 07/09/18 11:27 Basophils % 0.0 % 07/09/18 11:27 Nucleated RBC % 0.1 07/15/18 06:45 Abs Neuts (Manual) 21.1 10^3/ul (1.5-7.7) H 07/09/18 11:27 Abs Lymphs (Manual) 0.0 10^3/ul (1.0-4.8) L 07/09/18 11:27 Abs Monocytes (Manual) 3.1 10^3/ul (0-0.8) H 07/09/18 11:27 Absolute Eos (Manual) 0.0 10^3/ul (0-0.6) 07/09/18 11:27 Abs Basophils (Manual) 0.0 10^3/ul (0-0.2) 07/09/18 11:27 Normal RBC Morphology Normal (Normal) 07/09/18 11:27 ESR 27 mm/Hr (0-19) H 07/12/18 05:23 INR (Anticoag Therapy) 1.17 (0.82-1.09) H 07/09/18 11:27 APTT 32.9 seconds (26.0-36.3) 07/09/18 11:27 ABG pH 7.46 (7.35-7.45) H 07/09/18 11:12 ABG pCO2 32 mmHg (35-45) L 07/09/18 11:12 ABG pO2 78 mmHg (80-100) L 07/09/18 11:12 ABG HCO3 24.6 mmol/L (19-31) 07/09/18 11:12 ABG O2 Saturation 98.3 % (94.0-98.0) H 07/09/18 11:12 ABG Base Excess -0.3 mmol/L (-2.0-2.0) 07/09/18 11:12 Sodium 136 mmol/L (135-145) 07/17/18 07:57 Potassium 4.2 mmol/L (3.5-5.0) 07/17/18 07:57 Chloride 102 mmol/L (101-111) 07/17/18 07:57 Carbon Dioxide 28 mmol/L (22-32) 07/17/18 07:57 Anion Gap 6 mmol/L (2-11) 07/17/18 07:57 BUN 9 mg/dL (6-24) 07/17/18 07:57 Creatinine 0.73 mg/dL (0.67-1.17) 07/17/18 07:57 Est GFR ( Amer) 130.5 (>60) 07/17/18 07:57 Est GFR (Non-Af Amer) 107.8 (>60) 07/17/18 07:57 BUN/Creatinine Ratio 12.3 (8-20) 07/17/18 07:57 Glucose 144 mg/dL (70-100) H 07/17/18 07:57 POC Glucose (mg/dL) 143 mg/dL (70-100) H 07/18/18 12:13 Hemoglobin A1c 7.4 % (4.0-5.6) H 07/10/18 06:01 Lactic Acid 2.3 mmol/L (0.5-2.0) H* 07/09/18 17:15 Calcium 8.4 mg/dL (8.6-10.3) L 07/17/18 07:57 Magnesium 2.2 mg/dL (1.9-2.7) 07/13/18 06:05 Total Bilirubin 0.40 mg/dL (0.2-1.0) 07/12/18 05:23 AST 20 U/L (13-39) 07/12/18 05:23 ALT 17 U/L (7-52) 07/12/18 05:23 Alkaline Phosphatase 78 U/L (34-104) 07/12/18 05:23 Ammonia 49 mcmol/L (16-53) 07/09/18 17:15 Total Creatine Kinase 29 U/L (10-223) 07/12/18 05:23 CK-MB (CK-2) 4.8 ng/mL (0.6-6.3) 07/09/18 11:27 Troponin I 0.21 ng/mL (<0.04) H* 07/10/18 06:01 C-Reactive Protein 96.87 mg/L (<8.01) H 07/17/18 07:57 B-Natriuretic Peptide 52 pg/mL (<=100) 07/09/18 11:27 Total Protein 5.7 g/dL (6.4-8.9) L 07/12/18 05:23 Albumin 3.1 g/dL (3.2-5.2) L 07/12/18 05:23 Globulin 2.6 g/dL (2-4) 07/12/18 05:23 Albumin/Globulin Ratio 1.2 (1-3) 07/12/18 05:23 Triglycerides 95 mg/dL 07/10/18 06:01 Cholesterol 131 mg/dL 07/10/18 06:01 LDL Cholesterol 74 mg/dL 07/10/18 06:01 HDL Cholesterol 37.8 mg/dL 07/10/18 06:01 TSH 1.83 mcIU/mL (0.34-5.60) 07/11/18 06:17 Urine Color Yellow 07/09/18 13:11 Urine Appearance Clear 07/09/18 13:11 Urine pH 5.0 (5-9) 07/09/18 13:11 Ur Specific [place] 1.005 (1.010-1.030) L 07/09/18 13:11 Urine Protein Negative (Negative) 07/09/18 13:11 Urine Ketones Trace (Negative) A 07/09/18 13:11 Urine Blood 1+ (Negative) A 07/09/18 13:11 Urine Nitrate Negative (Negative) 07/09/18 13:11 Urine Bilirubin Negative (Negative) 07/09/18 13:11 Urine Urobilinogen Negative (Negative) 07/09/18 13:11 Ur Leukocyte Esterase Negative (Negative) 07/09/18 13:11 Urine WBC (Auto) Absent (Absent) 07/09/18 13:11 Urine RBC (Auto) Trace(0-2/hpf) (Absent) 07/09/18 13:11 Ur Squamous Epith Cells Present (Absent) A 07/09/18 13:11 Urine Bacteria Absent (Absent) 07/09/18 13:11 Urine Glucose 2+(150 mg/dl) (Negative) A 07/09/18 13:11 Objective: A&O x3, NAD, Swelling and erythema left elbow and upper forearm noted. Decreased erythema since yesterday. FROM elbow, wrist and hand. NVI distally. Assessment: ANIE cellulitis HD #10 Plan: Continue IV abx per ID Follow up with Dr. Stephens in office in 2 weeks Possible D/C for Thursday
[2018-07-18] MEDS: Enoxaparin(*) 40 MG/0.4 ML SYR SUBCUT SCH (14:27)
--- NOTE | 2018-07-18 15:10 | PN ---
Subjective Date of Service: 07/18/18 Interval History: Patient seen and examined. No acute overnight events. Denies fevers or chills. No headache. Pain in left upper extremity improved. States he feels edema is less and it's easier to bend his elbow now. He is making an effort not to touch the erythematous skin around the elbow. Objective Active Medications: Acetaminophen (Tylenol Tab*) 975 mg PO Q8H PRN PRN Reason: Fever or Mild Pain Last Admin: 07/16/18 05:32 Dose: 650 mg Hydrocodone Bitart/Acetaminophen ([place] 5-325 Tab*) 1 tab PO Q4H PRN PRN Reason: PAIN Last Admin: 07/17/18 23:00 Dose: 1 tab Al Hydrox/Mg Hydrox/Simethicone (Maalox Plus*) 30 ml PO Q6H PRN PRN Reason: INDIGESTION Last Admin: 07/12/18 20:18 Dose: 30 ml Albuterol (Ventolin 2.5 Mg/3 Ml Neb.Ruth*) 2.5 mg INH [id number] AWAKE PRN PRN Reason: sob/wheezing Buspirone HCl (Buspar Tab*) 5 mg PO TID PRN PRN Reason: anxiety Last Admin: 07/18/18 03:10 Dose: 5 mg Device (Tiotropium Inhaler Device*) 1 each INH .USE w/ SPIRIVA CAPS NATHALIA Dextrose (D50w Syringe 50 Ml*) 12.5 gm IV PUSH .FOR FS < 60 - SS PRN PRN Reason: FS < 60 Enoxaparin Sodium (Lovenox(*)) 40 mg SUBCUT Q24H [facility] Last Admin: 07/18/18 14:27 Dose: 40 mg Folic Acid (Folvite Tab*) 1 mg PO DAILY [facility] Last Admin: 07/18/18 08:20 Dose: 1 mg Gabapentin (Neurontin Cap(*)) 300 mg PO TID [facility] Last Admin: 07/18/18 14:27 Dose: 300 mg Cefazolin Sodium/Dextrose (Kefzol 2 Gm Premix In Ors(*)) 2 gm in 50 mls @ 100 mls/hr IVPB Q8H [facility] Last Admin: 07/18/18 10:35 Dose: 100 mls/hr Clindamycin HCl/Dextrose (Cleocin 600 Mg Ivpremix(*) Sdv) 600 mg in 50 mls @ 100 mls/hr IV Q8H [facility] Last Admin: 07/18/18 12:18 Dose: 100 mls/hr Insulin Human Lispro (Humalog*) 0 units SUBCUT ACHS [facility]; Protocol Last Admin: 07/18/18 12:18 Dose: 1 units Metformin HCl (Glucophage*) 500 mg PO 0800,1700 [facility] Last Admin: 07/18/18 08:20 Dose: 500 mg Metoprolol Succinate (Toprol Xl Tab*) 50 mg PO BID [facility] Last Admin: 07/18/18 08:20 Dose: 50 mg Morphine Sulfate (Morphine 4 Mg/Ml Vial (1 Ml)) 4 mg IV Q6H PRN PRN Reason: Moderate to Severe pain Last Admin: 07/15/18 20:39 Dose: 4 mg Multivitamins/Minerals (Theragran/Minerals Tab*) 1 tab PO DAILY [facility] Last Admin: 07/18/18 08:20 Dose: 1 tab Nicotine (Nicotine Patch 21 Mg/24 Hr*) 1 patch TRANSDERM DAILY [facility] Last Admin: 07/18/18 08:21 Dose: 1 patch Ondansetron HCl (Zofran Inj*) 4 mg IV Q6H PRN PRN Reason: NAUSEA Last Admin: 07/17/18 08:18 Dose: 4 mg Pantoprazole Sodium (Protonix Tab*) 40 mg PO DAILY [facility] Last Admin: 07/18/18 08:20 Dose: 40 mg Pharmacy Profile Note (Nicotine Patch Removal Note*) 1 note FOLLOW UP 2100 [facility] Last Admin: 07/17/18 20:05 Dose: 1 note Polyethylene Glycol/Electrolytes (Miralax*) 17 gm PO DAILY PRN PRN Reason: CONSTIPATION Senna (Senokot Tab*) 1 tab PO BEDTIME PRN PRN Reason: if no BM during day Last Admin: 07/12/18 08:51 Dose: 1 tab Sertraline HCl (Zoloft*) 50 mg PO DAILY [facility] Last Admin: 07/18/18 08:20 Dose: 50 mg Sucralfate (Carafate*) 1 gm PO AC [facility] Last Admin: 07/18/18 12:18 Dose: 1 gm Thiamine HCl (Vitamin B-1 Tab*) 100 mg PO DAILY [facility] Last Admin: 07/18/18 08:21 Dose: 100 mg Tiotropium Ina (Spiriva Cap.Inh*) 1 cap INH DAILY [facility] Last Admin: 07/18/18 07:08 Dose: 1 cap Vital Signs - 8 hr 07/18/18 07/18/18 07/18/18 07:17 08:00 08:21 Temperature 98.1 F Pulse Rate 81 Respiratory 16 16 17 Rate Blood Pressure 130/75 (mmHg) O2 Sat by Pulse 96 Oximetry 07/18/18 07/18/18 07/18/18 10:48 11:47 12:19 Temperature 97.8 F 98.0 F Pulse Rate 80 77 Respiratory 16 18 Rate Blood Pressure 94/56 108/66 (mmHg) O2 Sat by Pulse 95 96 Oximetry 07/18/18 14:27 Temperature Pulse Rate Respiratory 18 Rate Blood Pressure (mmHg) O2 Sat by Pulse Oximetry Oxygen Devices in Use Now: None Appearance: alert, NAD Eyes: No Scleral Icterus, PERRLA Ears/Nose/Mouth/Throat: NL Teeth, Lips, Gums, Mucous Membranes Moist Neck: NL Appearance and Movements; NL JVP, Trachea Midline Respiratory: Symmetrical Chest Expansion and Respiratory Effort, Clear to Auscultation Cardiovascular: NL Sounds; No Murmurs; No JVD, RRR, No Edema Abdominal: NL Sounds; No Tenderness; No Distention Extremities: No Clubbing, Cyanosis, - Skin: No Nodules or Sclerosis, - - left arm and elbow with further improvement in edema and erythema, additional retraction from markings noted, skin intact Neurological: Alert and Oriented x 3, NL Gait Nutrition: Taking PO's Result Diagrams: 07/17/18 07:57 07/17/18 07:57 Microbiology and Other Data: Microbiology 07/09/18 13:00 Legionella Urinary Antigen - Final Urine Negative Legionella Antigen Streptococcus pneumoniae Ag Screen - Final Negative S. pneumo Antigen 07/09/18 14:05 Skin and Soft Tissue MRSA/MSSA (PCR - Final Elbow Left Mrsa Negative S.aureus Positive Gram Stain - Final Assess/Plan/Problems-Billing 67yo M who has a h/o alcohol use disorder, active tobacco use complicated by COPD and anxiety, who is presenting with desire to stop drinking and with chronic cough and left elbow pain. The patient was found with tachycardia, fever, leukocytosis, and left elbow concerning for cellulitis. - Patient Problems (1) Cellulitis Code(s): L03.90 - CELLULITIS, UNSPECIFIED SNOMED Code(s): 432020598 Comment: - Continued improvement with retraction of erythema/edema - Continue clindamycin and ancef for strep pyogenes and MSSA in the [facility] until Thursday, will discuss PO atbx choices for discharge - ID and ortho following - Afebrile, no leukocytosis on 07/17 labs (2) Alcohol abuse Code(s): F10.10 - ALCOHOL ABUSE, UNCOMPLICATED SNOMED Code(s): 22091287 Comment: - Not scoring, WAM DCd yesterday - Continue MVI, gabapentin, thiamine and folate - Will need outpatient f/u (3) Anxiety and depression Code(s): F41.9 - ANXIETY DISORDER, UNSPECIFIED; F32.9 - MAJOR DEPRESSIVE DISORDER, SINGLE EPISODE, UNSPECIFIED SNOMED Code(s): 705881189 Comment: - Sertraline increased to 50mg daily - Buspar 5mg TID prn anxiety (4) COPD (chronic obstructive pulmonary disease) Code(s): J44.9 - CHRONIC OBSTRUCTIVE PULMONARY DISEASE, UNSPECIFIED SNOMED Code(s): 56882692 Comment: - Continue spiriva; nebs PRN - No signs of exacerbation, no O2 requirement (5) Diabetes mellitus Code(s): E11.9 - TYPE 2 DIABETES MELLITUS WITHOUT COMPLICATIONS SNOMED Code(s) : 18952741 Comment: - Continue metformin (6) Sepsis Comment: - Septic on admission, now resolved (7) DVT prophylaxis Code(s): Z29.9 - ENCOUNTER FOR PROPHYLACTIC MEASURES, UNSPECIFIED SNOMED Code( s): 561118163 Comment: - lovenox (8) Full code status Code(s): Z78.9 - OTHER SPECIFIED HEALTH STATUS SNOMED Code(s): 094381647 Status and Disposition: Inpatient for IV atbx, discharge in AM on Po atbx.
[2018-07-18] MEDS: Acetaminophen TAB* 325 MG PO PRN (20:00)
[2018-07-18] MEDS: Nicotine Patch Removal NOTE FOLLOW UP SCH (20:31)
[2018-07-19] MEDS: ceFAZolin* 2 GM* Q8H (Duplex) IVPB SCH ×2 (02:50→10:09)
[2018-07-19] MEDS: Clindamycin 600 MG IVPREMIX(* 600 MG/50 ML SDV IV SCH ×2 (03:42→12:26)
[2018-07-19] MEDS: Acetaminophen TAB* 325 MG PO PRN (04:48)
[2018-07-19] MEDS: metFORMIN* 500 MG TAB PO SCH (08:04)
[2018-07-19] MEDS: Folic Acid TAB* 1 MG PO SCH (08:04)
[2018-07-19] MEDS: Nicotine PATCH 21 MG/24 HR* PATCH TRANSDERM SCH (08:04)
[2018-07-19] MEDS: Sucralfate TAB* 1 GM PO SCH ×2 (08:04→12:24)
[2018-07-19] MEDS: Gabapentin CAP(*) 300 MG PO SCH ×2 (08:05→14:53)
[2018-07-19] MEDS: Metoprolol Succinate XL TAB* 50 MG PO SCH (08:05)
[2018-07-19] MEDS: Multivitamins/Minerals TAB PO SCH (08:05)
[2018-07-19] MEDS: Thiamine TAB* 100 MG TAB PO SCH (08:05)
[2018-07-19] MEDS: Pantoprazole TAB * 40 MG TAB PO SCH (08:05)
[2018-07-19] MEDS: Sertraline* 50 MG TAB PO SCH (08:05)
[2018-07-19] MEDS: Insulin LISPRO* 1 UNITS UNIT SUBCUT SCH ×2 (08:06→12:24)
[2018-07-19] MEDS: Tiotropium CAP.INH* CAP.INH/18 MCG (USE ORDER SET !) INH SCH (08:13)
[2018-07-19 14:18] VITALS: BP 119/78
[2018-07-19] MEDS: Enoxaparin(*) 40 MG/0.4 ML SYR SUBCUT SCH (14:27)
--- NOTE | 2018-07-19 22:10 | DS ---
CC: Dr. Mohsen Stephens; Dr. Sherif Butts * DISCHARGE SUMMARY: DATE OF ADMISSION: 07/09/18 DATE OF DISCHARGE: 07/19/18 ATTENDING PROVIDER: Dr. Gill * (DICTATED BY AUSTIN OSMAN NP) PRIMARY CARE PROVIDER: None. SPECIALISTS INVOLVED IN THIS PATIENT'S CARE: Dr. Mohsen Stephens of Orthopedics, Dr. Sherif Butts of Infectious Disease. HOSPITAL COURSE: Please refer to admitting history and physical dated 07/09/18 , but in short, Mr. Russ is a 67-year-old male patient who came to the emergency department with a chief complaint of alcohol intoxication and seeking detox services. The patient does have history of COPD, tobacco abuse, anxiety and depression, and alcohol abuse, came to the ED seeking assistance with detoxification. However, upon coming to the emergency department, he was noted to be febrile and tachycardic. He did receive a chest x-ray, which showed COPD , no consolidation, however, he was given ceftriaxone, azithromycin, a liter of fluids, and was referred for admission. At that time, however, it was noted that he had some circumferential edema and erythema to the left upper extremity and elbow. The patient was subsequently admitted, however, during that time, it appeared that the ER doctor thought there might be some fluid collection around the olecranon bursa. There was an incision then through the skin, longitudinal in nature along the olecranon bursa. There was no fluid released. There was some blood, but no pus. The patient was seen by Orthopedics, who ordered an MRI of the elbow, it did not show a fluid collection in the olecranon bursa. He did have further diffuse cellulitis of the arm, which did persist. Wound cultures of the area that were taken showed MSSA and Strep pyogenes, but no MRSA. The patient was treated with clindamycin and cefazolin. The patient responded very well to antibiotic therapy. His blood cultures were negative. During this time, he was also detoxing from alcohol. He was placed on [facility] protocol. He did not have any acute events while he was detoxing from alcohol. He remained hemodynamically stable. He had daily wound checks and elevation of the left upper extremity during the time that he was receiving treatment. His blood pressure and diabetes were also maintained, within normal limits. The patient progressed very well. He was cleared for discharge on and referred for outpatient management by Lighting Director for continued alcohol cessation. There was some discussion with the patient regarding his financial situation. He stated that he did have financial resources to maintain medications at discharge. Our wrapper caser works with him and his pharmacy closely to obtain proper medications at discharge, so as not to disrupt care and a safe discharge plan and medications were obtained for the patient for discharge to home. DISCHARGE DIAGNOSES: 1. Left arm and elbow cellulitis with traumatic olecranon bursitis without abscess. 2. History of alcohol abuse and detoxification. 3. Anxiety and depression. 4. Chronic obstructive pulmonary disease. 5. History of tobacco abuse. 6. Diabetes mellitus. 7. Sepsis present on admission, now resolved. 8. Hyponatremia and hypokalemia, now resolved. REVIEW OF SYSTEMS: On day of discharge, the patient denies any fever, fatigue, or chills. No headache. No chest pain, no shortness of breath. No abdominal pain, no nausea, no vomiting. He does complain of some left elbow pain, which is currently manageable, rating a 2/10. No further arthralgias or myalgias. No further constitutional complaints. PHYSICAL EXAMINATION: The patient is alert and in no acute distress. Vital signs are, blood pressure 130/75, heart rate 78, respiratory rate 20, O2 saturation 95% on room air, temperature 97.7. HEENT: The patient is atraumatic , normocephalic. PERRLA. Nonicteric sclerae. Oral mucosa is moist. Tongue is midline. Neck: Supple. Nontender. No JVD noted. No thyromegaly appreciated. Cardiovascular: S1, S2 present. Rate and rhythm are currently regular. No murmurs, gallops, or rubs noted. Lungs are clear at the apices bilaterally, diminished at the bases with no wheezing, rhonchi, or rales noted. Abdomen is soft, nontender, and nondistended. Positive bowel sounds in all 4 quadrants. No organomegaly noted. : Deferred. Musculoskeletal: There is no clubbing, no cyanosis, and no edema. He has +2 distal pulses palpable. Full range of motion. Steady gait. Left upper extremity, significant erythema and edema, localized to the left elbow, down to the mid forearm. Erythema and edema have retracted from hand and wrist, and also from the inner arm and axilla, which are now clear. He does have some fluctuance still over the elbow and some tenderness, but this is all greatly improved from initial admission. Still has some warmth, but again greatly improved. There is no drainage or exudate or pus noted. Neurologic: He is grossly intact. No focal deficits. He is alert and oriented x3. Psychiatric: He is calm, cooperative, and appropriate. LABORATORY DATA: Last labs on 07/17/18, WBC is 10.0, down from 19 at admission ; RBC is 4.69; hemoglobin 14.7; hematocrit 45; MCV 95; MCH 31; RDW 16; platelets 293. Last glucose 154. CRP was 149.53, down from 228.81. IMAGING: MRI of the upper extremity dated 07/13/18 shows there is diffuse soft tissue swelling present within the subcutaneous tissues. No muscle edema is seen. No focal fluid collection or abscesses noted. Bones are normal and signal intensity without focal abnormality. DISPOSITION: The patient will be discharged to home. He is in stable condition. FOLLOWUP: The patient is instructed to follow up with the [facility] on 07/21/18 at 10:20 a.m. At that followup, [facility] physicians can decide if the patient would need further followup with Orthopedics or with Infectious Disease at that time. ACTIVITY: Progress activity as tolerated. He should also elevate the left arm while it is still healing. In terms of wound care, the patient should wash the left arm gently with soap and water, do not use creams or lotions, do not wrap or compress, and elevate the left arm when possible. DIET: Heart-healthy diabetic as tolerated. TIME SPENT: Approximately 45 minutes on discharge planning and patient counseling. AUSTIN OSMAN, ELAINA [id number]/[facility] #: [id number] DOROTHY
--- NOTE | 2018-07-21 00:05 | HP ---
HISTORY AND PHYSICAL: DATE OF ADMISSION: 07/09/18 ADDENDUM: REVIEW OF SYSTEMS: A 10-point review of systems performed and all pertinent positives and negatives as per HPI. [id number]/[facility] #: [id number] MTDD
== END 2018-07-19 15:20 | disposition home or self-care (01) | DRG 720 ==
LOC: ED 10:44 → MED 13:50
PROVIDERS: ADMIT Internal Medicine; ATTEND Student in an Organized Health Care Education/Training Program
PROC: 0R9M3ZX Drainage of Left Elbow Joint, Percutaneous Approach, Diagnostic (ICD-10-PCS; principal; 2018-07-09)
DX: A41.9 Sepsis, unspecified organism (principal); L03.114 Cellulitis of left upper limb; E87.1 Hypo-osmolality and hyponatremia; M70.22 Olecranon bursitis, left elbow; J44.9 Chronic obstructive pulmonary disease, unspecified; F32.9 Major depressive disorder, single episode, unspecified; B95.61 Methicillin susceptible Staphylococcus aureus infection as the cause of diseases classified elsewhere; B95.4 Other streptococcus as the cause of diseases classified elsewhere; F10.229 Alcohol dependence with intoxication, unspecified; Y90.9 Presence of alcohol in blood, level not specified; F17.210 Nicotine dependence, cigarettes, uncomplicated; E11.9 Type 2 diabetes mellitus without complications; E87.6 Hypokalemia; F41.9 Anxiety disorder, unspecified; Z80.9 Family history of malignant neoplasm, unspecified; Z23 Encounter for immunization; Z83.3 Family history of diabetes mellitus; Z88.0 Allergy status to penicillin
CPT/HCPCS: 36415; 71046; 76705; 80048; 80053; 80061; 81003; 81015; 82140; 82550; 82553; 82803; 83036; 83605; 83735; 83880; 84443; 84484; 85025; 85027; 85610; 85652; 85730; 86140; 87040; 87070; 87077; 87186; 87205; 87640; 87641; 87899; 90732; 93005; 94640; 99285; A9270-GY; G8978-GP-CI; G8979-GP-CI; G8980-GP-CI; J0456; J0690; J0696; J1650; J1885; J2060; J2270; J2405; J2930; J3370; J3411; J3475; J3480